=== PATIENT | female | born 1985 | race Caucasian/White ===

== ENCOUNTER → 2018-07-28 | Outpatient (CLI) | payer OTHER ==
[2018-07-28 14:07] LABS: HCT 40.8 % (34.0-46.0); HGB 13.7 gm/dL (11.4-16.0); MCH 31.5 pg (25.0-35.0); MCHC 33.5 g/dL (31.0-37.0); Mean Platelet Volume 6.7; Platelet Count 226 k/uL (150-450); RBC 4.34 m/uL (3.80-5.40); RDW 13.2 % (11.5-15.5); WBC 12.5 k/uL (3.8-10.6)
[2018-07-28 14:16] LABS: Glucose 85 mg/dL (74-99)
--- NOTE | 2018-07-28 16:14 | US ---
EXAMINATION TYPE: Transabdominal DATE OF EXAM: 07/28/2018 3:11 PM COMPARISON: NONE CLINICAL HISTORY: Z36 Confirm Dates. early ob, no symptoms EXAM PERFORMED: OBTA EXAM MEASUREMENTS: GESTATIONAL AGE / DATING Physician Established: (11 weeks/0 days) EDC: 02/16/2019 Dates by LMP: LMP unknown Dates by First Scan: (11 weeks/0 days) EDC: 02/16/2019 Dates by Current Scan for: (11 weeks/0 days) EDC: 02/16/2019 MATERNAL ANATOMY Uterus: 11.1 x 8.2 x 6.2cm Right Ovary: 2.3 x 1.4 x 1.2cm Left Ovary: 4.0 x 2.4 x 1.6cm Post CDS / Adnexa: wnl Presence of free fluid: no Presence of corpus luteal cyst: yes, left = 1.4 Presence of subchorionic bleed: no GESTATION / SURVEY CRL: 4.0cm (11 weeks/0 days) MSD: wnl Yolk Sac (normal less than 6mm): not seen Heart Rate: 149 bpm Rhythm: Normal IUP: Viable IUP Date of LMP: unknown IMPRESSION: Single intrauterine gestation estimated at 11 weeks 0 days gestation based on crown-rump length. Card iac activity measures 148 minutes.
== END | disposition home or self-care (01) ==
LOC: RADUSWWP 12:45 → MERGE 15:00
PROVIDERS: ATTEND Obstetrics & Gynecology
DX: Z36.89 Encounter for other specified antenatal screening (principal); Z34.81 Encounter for supervision of other normal pregnancy, first trimester
CPT/HCPCS: 36415; 76801; 82565; 82947; 85027; 86762; 86780; 86850; 86900; 86901; 87340

== ENCOUNTER 2018-10-15 11:50 | Emergency (ER) | payer OTHER ==
[2018-10-15] MEDS ORDERED: SODIUM CHLORIDE 0.9% 1,000 ML IV STA (12:05)
--- NOTE | 2018-10-15 12:42 | ED ---
Abdominal Pain HPI - General Chief Complaint: Abdominal Pain Stated Complaint: RT KIDNEY PAIN Time Seen by Provider: 10/15/18 12:05 Source: patient, RN notes reviewed Mode of arrival: ambulatory Limitations: no limitations - History of Present Illness Initial Comments: 33-year-old female presents emergency Department with chief complaint of right flank pain. Patient states that she has a history kidney stones and feels similar. Patient also states that she is 22 weeks denies any vaginal bleeding or vaginal discharge denies any lower abdominal pain and cramping. She states that she is A0 seen Dr. Mcdaniel. Patient states she still feels the baby move at this time. Patient states that she does not take any Tylenol for the pain she is not requesting pain meds at this time. She does admit to slight nausea no vomiting. - Related Data Home Medications Medication Instructions Recorded Confirmed Pnv No.95/Ferrous Fum/Folic AC 1 tab PO DAILY 10/15/18 10/15/18 [ Multivitamin Tablet] Previous Rx's Medication Instructions Recorded Cephalexin [Keflex] 500 mg PO Q8HR #21 cap 10/15/18 Allergies Allergy/AdvReac Type Severity Reaction Status Date / Time Penicillins Allergy Unknown Verified 10/15/18 12:08 Review of Systems ROS Statement: Those systems with pertinent positive or pertinent negative responses have been documented in the HPI. ROS Other: All systems not noted in ROS Statement are negative. Past Medical History Past Medical History: No Reported History History of Any Multi-Drug Resistant Organisms: None Reported Past Surgical History: Section, Cholecystectomy Past Psychological History: No Psychological Hx Reported Smoking Status: Current every day smoker Past Alcohol Use History: Occasional Past Drug Use History: None Reported General Exam Limitations: no limitations General appearance: alert, in no apparent distress Head exam: Present: atraumatic, normocephalic, normal inspection Eye exam: Present: normal appearance, PERRL, EOMI. Absent: scleral icterus, conjunctival injection, periorbital swelling ENT exam: Present: normal exam, normal oropharynx, mucous membranes moist Neck exam: Present: normal inspection. Absent: tenderness, meningismus, lympha denopathy Respiratory exam: Present: normal lung sounds bilaterally. Absent: respiratory distress, wheezes, rales, rhonchi, stridor Cardiovascular Exam: Present: normal rhythm, tachycardia, normal heart sounds. Absent: systolic murmur, diastolic murmur, rubs, gallop, clicks GI/Abdominal exam: Present: soft, normal bowel sounds. Absent: distended, tenderness, guarding, rebound, rigid Back exam: Present: CVA tenderness (R). Absent: CVA tenderness (L) Neurological exam: Present: alert, oriented X3, CN II-XII intact Skin exam: Present: warm, dry, intact, normal color. Absent: rash Course Vital Signs 10/15/18 10/15/18 11:58 13:12 Temperature 98.5 F 98.6 F Pulse Rate 117 H 95 Respiratory 16 18 Rate Blood Pressure 133/78 119/76 O2 Sat by Pulse 98 97 Oximetry Medical Decision Making - Medical Decision Making 33-year-old female presents emergency department for right flank pain. Patient is concerned about stone. Ultrasound was obtained shows no edematous changes no [place] nephrosis hydroureter. Patient urinalysis is nitrite positive with leukoesterase. Patient we treated with antibiotics for possible urinary tract infection. There is no complicating factors or concern for pyelonephritis at this time she is afebrile, not tachycardic. Patient will follow-up with her [employer] tomorrow return for any worsening symptoms. - Lab Data Result diagrams: 10/15/18 12:20 10/15/18 12:20 Lab Results 10/15/18 10/15/18 10/15/18 Range/Units 12:20 12:20 12:20 WBC 15.3 H (3.8-10.6) k/uL RBC 3.69 L (3.80-5.40) m/uL Hgb 12.2 (11.4-16.0) gm/dL Hct 34.2 (34.0-46.0) % MCV 92.6 (80.0-100.0) fL MCH 33.1 (25.0-35.0) pg MCHC 35.7 (31.0-37.0) g/dL RDW 13.7 (11.5-15.5) % Plt Count 230 (150-450) k/uL Neutrophils % 83 % Lymphocytes % 9 % Monocytes % 6 % Eosinophils % 1 % Basophils % 0 % Neutrophils # 12.7 H (1.3-7.7) k/uL Lymphocytes # 1.4 (1.0-4.8) k/uL Monocytes # 0.9 (0-1.0) k/uL Eosinophils # 0.1 (0-0.7) k/uL Basophils # 0.1 (0-0.2) k/uL Sodium 135 L (137-145) mmol/L Potassium 3.7 (3.5-5.1) mmol/L Chloride 105 (98-107) mmol/L Carbon Dioxide 22 (22-30) mmol/L Anion Gap 8 mmol/L BUN 6 L (7-17) mg/dL Creatinine 0.40 L (0.52-1.04) mg/dL Est GFR (CKD-EPI)AfAm >90 (>60 ml/min/1.73 sqM) Est GFR (CKD-EPI)NonAf >90 (>60 ml/min/1.73 sqM) Glucose 109 H (74-99) mg/dL Calcium 9.2 (8.4-10.2) mg/dL Total Bilirubin 0.4 (0.2-1.3) mg/dL AST 14 (14-36) U/L ALT 11 (9-52) U/L Alkaline Phosphatase 79 (38-126) U/L Total Protein 6.6 (6.3-8.2) g/dL Albumin 3.6 (3.5-5.0) g/dL Lipase 55 (23-300) U/L Urine Color Yellow Urine Appearance Cloudy H (Clear) Urine pH 6.5 (5.0-8.0) Ur Specific [place] 1.012 (1.001-1.035) Urine Protein Trace H (Negative) Urine Glucose (UA) Negative (Negative) Urine Ketones Negative (Negative) Urine Blood Negative (Negative) Urine Nitrite Positive H (Negative) Urine Bilirubin Negative (Negative) Urine Urobilinogen <2.0 (<2.0) mg/dL Ur Leukocyte Esterase Moderate H (Negative) Ur Squamous Epith Cells 2 (0-4) /hpf Urine Bacteria Many H (None) /hpf Urine Mucus Rare H (None) /hpf Disposition Clinical Impression: UTI (urinary tract infection), Kidney stones Disposition: HOME SELF-CARE Condition: Stable Instructions (If sedation given, give patient instructions): Urinary Tract Infection in (ED) Additional Instructions: Please return to the Emergency Department if symptoms worsen or any other concerns. Prescriptions: Cephalexin [Keflex] 500 mg PO Q8HR #21 cap Is patient prescribed a controlled substance at d/c from ED?: No Referrals: None,Stated [Primary Care Provider] - 1-2 days Time of Disposition: 13:35
[2018-10-15 13:00] LABS: ALT 11 U/L (9-52); AST 14 U/L (14-36); African American GFR (CKD) >90 (>60 ml/min/1.73 sqM); Albumin 3.6 g/dL (3.5-5.0); Alkaline Phosphatase 79 U/L (38-126); Anion Gap 8 mmol/L; Blood Urea Nitrogen 6 mg/dL (7-17); Calcium 9.2 mg/dL (8.4-10.2); Carbon Dioxide 22 mmol/L (22-30); Chloride 105 mmol/L (98-107); Glucose 109 mg/dL (74-99); Lipase 55 U/L (23-300); Potassium 3.7 mmol/L (3.5-5.1); Sodium 135 mmol/L (137-145); Total Bilirubin 0.4 mg/dL (0.2-1.3); Total Protein 6.6 g/dL (6.3-8.2)
[2018-10-15 13:12] LABS: Basophils # (A) 0.1 k/uL (0-0.2); Basophils % (A) 0 %; Eosinophils # (A) 0.1 k/uL (0-0.7); Eosinophils % (A) 1 %; HCT 34.2 % (34.0-46.0); HGB 12.2 gm/dL (11.4-16.0); Lymphocytes # (A) 1.4 k/uL (1.0-4.8); Lymphocytes % (A) 9 %; MCH 33.1 pg (25.0-35.0); MCHC 35.7 g/dL (31.0-37.0); MCV 92.6 fL (80.0-100.0); Mean Platelet Volume 7.6; Monocytes # (A) 0.9 k/uL (0-1.0); Monocytes % (A) 6 %; Neutrophils # (A) 12.7 k/uL (1.3-7.7); Neutrophils % (A) 83 %; Platelet Count 230 k/uL (150-450); RBC 3.69 m/uL (3.80-5.40); RDW 13.7 % (11.5-15.5); WBC 15.3 k/uL (3.8-10.6)
--- NOTE | 2018-10-15 13:24 | US ---
EXAMINATION TYPE: US kidneys/renal and bladder DATE OF EXAM: 10/15/2018 COMPARISON: NONE CLINICAL HISTORY: Right flank pain, history of stones. Right flank pain x 2 days, nausea, patient is 22 weeks . EXAM MEASUREMENTS: Right Kidney: 13 x 5.7 x 6 cm Left Kidney: 12.4 x 5 x 5 cm Right Kidney: large in size, multiple echogenic shadowing foci with largest measuring 0.7cm Left Kidney: large in size, 0.5cm echogenic focus inferior pole Bladder: wnl Bilateral Jets seen: no IMPRESSION: Bilateral nephrolithiasis with no evidence of overt hydronephrosis.
[2018-10-15 13:31] LABS: Appearance,Urine Cloudy (Clear); Bacteria,Urine Many /hpf; Bilirubin,Urine Negative (Negative); Blood,Urine Negative (Negative); Color,Urine Yellow; Glucose,Urine (UA) Negative (Negative); Ketones,Urine Negative (Negative); Leukocyte Esterase,Urine Moderate (Negative); Mucus,Urine Rare /hpf; Nitrite,Urine Positive (Negative); PH, Urine 6.5 (5.0-8.0); Protein,Urine Trace (Negative); Specific Gravity,Urine 1.012 (1.001-1.035); Squamous Epithelial Cell,Urine 2 /hpf (0-4); Urobilinogen,Urine <2.0 mg/dL (<2.0)
[2018-10-15] MEDS ORDERED: cefTRIAXone IN SWFI 1,000 MG/10 ML SYRINGE IVP STA ×2 (13:32→13:33)
[2018-10-15 13:55] VITALS: BP 112/76; PULSE 86; RESP 16; TEMP 98.7
== END 2018-10-15 14:02 | disposition home or self-care (01) ==
LOC: EC 11:50
DX: O23.42 Unspecified infection of urinary tract in pregnancy, second trimester (principal); O26.832 Pregnancy related renal disease, second trimester; N20.0 Calculus of kidney; O99.89 Other specified diseases and conditions complicating pregnancy, childbirth and the puerperium; R00.0 Tachycardia, unspecified; O99.332 Smoking (tobacco) complicating pregnancy, second trimester; F17.200 Nicotine dependence, unspecified, uncomplicated; Z88.0 Allergy status to penicillin; Z90.49 Acquired absence of other specified parts of digestive tract; Z98.890 Other specified postprocedural states; Z3A.22 22 weeks gestation of pregnancy
CPT/HCPCS: 36415; 80053; 83690; 85025; 81001; 87086; 76770; 99284; 96374; 96361; J0696

== ENCOUNTER → 2018-11-02 | Outpatient (CLI) | payer OTHER ==
[2018-11-02 14:32] LABS: HCT 36.4 % (34.0-46.0); HGB 12.1 gm/dL (11.4-16.0); MCH 31.7 pg (25.0-35.0); MCHC 33.2 g/dL (31.0-37.0); MCV 95.3 fL (80.0-100.0); Mean Platelet Volume 6.9; Platelet Count 256 k/uL (150-450); RBC 3.82 m/uL (3.80-5.40); RDW 13.1 % (11.5-15.5); WBC 13.2 k/uL (3.8-10.6)
== END | disposition home or self-care (01) ==
LOC: LABWHC1 13:18
PROVIDERS: ATTEND Obstetrics & Gynecology
DX: Z34.82 Encounter for supervision of other normal pregnancy, second trimester (principal)
CPT/HCPCS: 36415; 82950; 85027

== ENCOUNTER 2019-01-05 11:00 | Outpatient (CLI) | payer OTHER ==
[2019-01-05 11:51] VITALS: BP 127/83; PULSE 94; RESP 18; TEMP 98.2
[2019-01-05 12:16] LABS: Appearance,Urine Cloudy (Clear); Bacteria,Urine Many /hpf; Bilirubin,Urine Negative (Negative); Blood,Urine Small (Negative); Color,Urine Yellow; Glucose,Urine (UA) Negative (Negative); Ketones,Urine Negative (Negative); Leukocyte Esterase,Urine Large (Negative); Mucus,Urine Few /hpf; Nitrite,Urine Negative (Negative); PH, Urine 6.5 (5.0-8.0); Protein,Urine Trace (Negative); RBC,Urine 16 /hpf (0-5); Sperm,Urine Rare /hpf; Squamous Epithelial Cell,Urine 7 /hpf (0-4); Urobilinogen,Urine <2.0 mg/dL (<2.0); WBC,Urine 122 /hpf (0-5)
--- NOTE | 2019-02-10 00:02 | P.MSEPDOC ---
Presenting Problems - Arrival Data Date of Arrival on Unit: 01/05/19 Time of Arrival on Unit: 11:00 Mode of Transport: Ambulatory - Complaint OB-Reason for Admission/Chief Complaint: Other Comment: right flank pain. hx of uti and kidney stones Medical History - Information : 2 Para: 1 Term: 1 : 0 Abortions: Spontaneous or Elective: 0 Number of Living Children: 1 - Gestational Age Gestational Age by ISAEL (wks/days): 34 Weeks and 0 Days - History Complications: Prior , Smoker Review of Systems - Review of Systems Constitutional: No problems Breast: No problems ENT: No problems Cardiovascular: No problems Respiratory: No problems Gastrointestinal: No problems Genitourinary: No problems Musculoskeletal: No problems Neurological: No problems Skin: No problems Comment: right flank pain and hx of uti and kidney stones. on antibiotics since 01/05 at 1700 for uti. Vital Signs - Temperature Temperature: 98.2 F Temperature Source: Oral - Pulse Right Brachial Pulse Rate: 94 Pulse Assessment Method: Automatic Cuff - Respirations Respiratory Rate: 18 Oxygen Delivery Method: Room Air O2 Sat by Pulse Oximetry: 97 - Blood Pressure Right Arm Blood Pressure: 127/83 Blood Pressure Mean: 97 Blood Pressure Source: Automatic Cuff Medical Screen Scoring (Pre) - Cervical Exam Dilation: Exam Deferred Effacement: Exam Deferred Membranes: Intact - Uterine Contractions Frequency: N/A Duration: N/A Intensity: N/A - Maternal Vital Signs Maternal Temperature: N/A Maternal Blood Pressure: N/A Signs of Preeclampsia: N/A Maternal Respirations: N/A - Maternal Trauma Maternal Trauma: N/A - Assessment - Baby A Baseline FHR: 145 Heart Rate - NICHD Category: Category I (Normal) = 0 NST: Reactive Position: N/A Station: N/A - Total Score - Baby A Total Score - Baby A: 0 - Total Score - Baby B Total Score - Baby B: 0 - Total Score - Baby C Total Score - Baby C: 0 - Level of Risk - Baby A Level of Risk - Baby A: Low (0-5) - Level of Risk - Baby B Level of Risk - Baby B: Low (0-5) - Level of Risk - Baby C Level of Risk - Baby C: Low (0-5) Physician Notification (Pre) - Physician Notified Spoke With: reed Jesus Order Received: Yes - Notification Comment Comment: discharge home. to lkvincent van appt on 01-12 at office. Medical Screen Scoring (Post) - Cervical Exam Dilation: Exam Deferred Effacement: Exam Deferred - Uterine Contractions Frequency: N/A Duration: N/A Intensity: N/A - Maternal Vital Signs Maternal Temperature: N/A Maternal Blood Pressure: N/A Signs of Preeclampsia: N/A Maternal Respirations: N/A - Pain Assessment Pain Scale Used: Numeric (1 - 10) Pain Intensity: 5 Pain Description: *Acute Pain Frequency: Intermittent Pain Duration: 3.5 Pain Duration Units: Hours Pain Behavior: None Exhibited, Vocalization Pain Aggravating Factors: Activity - Maternal Trauma Maternal Trauma: N/A - Assessment - Baby A Heart Rate: 135 Heart Rate - NICHD Category: Category I (Normal) = 0 NST: Reactive Position: N/A Station: N/A - Total Score Total Score - Baby A: 0 Total Score - Baby B: 0 Total Score - Baby C: 0 - Post Treatment Level of Risk Post Treatment Level of Risk - Baby A: Low (0-5) Post Treatment Level of Risk - Baby B: Low (0-5) Post Treatment Level of Risk - Baby C: Low (0-5) Physician Notification (Post) - Physician Notified Physician Notified Date: 01/05/19 Physician Notified Time: 12:30 Spoke With: reed Jesus Order Received: Yes - Notification Comment Comment: disch home. to keep sched appt on 01-12 at office. to call if worsening symptoms. Disposition - Disposition OB Disposition: Discharge to home Discharge Date: 01/05/19 Discharge Time: 12:37 I agree with the RN Medical Screening Exam: Yes Risk & Benefit of care provided described in d/c instruction: Yes Diagnosis: URINARY TRACT INFECTION, SITE NOT SPECIFIED
== END 2019-01-05 12:42 | disposition home or self-care (01) ==
LOC: FBPOP 11:00
PROVIDERS: ATTEND Obstetrics & Gynecology
DX: O23.43 Unspecified infection of urinary tract in pregnancy, third trimester (principal); Z3A.34 34 weeks gestation of pregnancy
CPT/HCPCS: 59025; 81001; G0463; 99213

== ENCOUNTER 2019-02-01 08:16 | Outpatient (CLI) | payer OTHER ==
[2019-02-01] MEDS ORDERED: LACTATED RINGERS 1,000 ML IV SCH (09:15)
[2019-02-01 09:24] VITALS: BP 123/72; PULSE 107; RESP 20; TEMP 97.5
[2019-02-01 09:49] LABS: Appearance,Urine Cloudy (Clear); Bacteria,Urine Many /hpf; Bilirubin,Urine Negative (Negative); Blood,Urine Trace (Negative); Color,Urine Yellow; Glucose,Urine (UA) Negative (Negative); Ketones,Urine Negative (Negative); Leukocyte Esterase,Urine Large (Negative); Nitrite,Urine Positive (Negative); PH, Urine 6.5 (5.0-8.0); Protein,Urine 1+ (Negative); Specific Gravity,Urine 1.014 (1.001-1.035); Squamous Epithelial Cell,Urine 8 /hpf (0-4); Urobilinogen,Urine <2.0 mg/dL (<2.0); WBC,Urine 80 /hpf (0-5)
== END 2019-02-01 11:55 | disposition home or self-care (01) ==
LOC: FBPOP 08:16
PROVIDERS: ATTEND Obstetrics & Gynecology
DX: O21.9 Vomiting of pregnancy, unspecified (principal)
CPT/HCPCS: 59025; 96360; 96361; 81001; 87086; 87077; 87186; G0463; 99214

== ENCOUNTER 2019-02-02 18:56 | Inpatient (IN) | payer OTHER ==
[2019-02-02] MEDS ORDERED: LACTATED RINGERS 500 ML IV ONE (19:30)
[2019-02-02] MEDS ORDERED: ONDANSETRON 4 MG/2 ML VIAL IVP PRN (20:14)
--- NOTE | 2019-02-02 20:31 | P.HPOB ---
History of Present Illness H&P Date: 02/02/19 Chief Complaint: Nausea vomiting for 24 hours and decreased movement This patient is a 33-year-old 2 para 1 female estimated date of confinement 02/16/2019 estimated gestational age 38-0/7 weeks gestation who presented this evening with complaints of nausea vomiting for over 24 hours and also decreased movement. Patient was here yesterday morning apparently with back pain and similar complaints and urinalysis showed leukocyte esterase with white blood cells and bacteria. Patient that time was given IV fluids and urine culture was sent. Urine culture returns now having gram-negative bacilli (most likely E. coli or Klebsiella). Patient denies back pain this evening or fever but does state that she's been able to keep any fluids down. Patient is now being admitted for IV hydration and IV antibiotics. 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 History of Any Multi-Drug Resistant Organisms: None Reported Past Surgical History: Section, Cholecystectomy Past Anesthesia/Blood Transfusion Reactions: No Reported Reaction Past Psychological History: No Psychological Hx Reported Smoking Status: Current every day smoker Past Alcohol Use History: None Reported Past Drug Use History: None Reported Medications and Allergies Home Medications Medication Instructions Recorded Confirmed Type Pnv No.95/Ferrous Fum/Folic AC 1 tab PO DAILY 10/15/18 02/02/19 History [ Multivitamin Tablet] Allergies Allergy/AdvReac Type Severity Reaction Status Date / Time Penicillins Allergy Rash/Hives Verified 02/02/19 19:06 Exam Intake and Output 02/02/19 02/02/19 02/02/19 06:59 14:59 22:59 Other: Weight 102.376 kg - OBG Physical Exam Abdomen: bowel sounds normal Uterus: enlarged Results Please see urinalysis from yesterday. Preliminary culture shows gram-negative bacilli. blood work shows she is oh positive, rubella immune, RPR is nonreactive, hepatitis B is negative, patient has been referred to maternal- medicine. Assessment and Plan Assessment: This is a 33-year-old 2 para 1 female 38 weeks gestation who is admitted for persistent nausea vomiting and inability to keep things down and urine culture suggestive of E. coli or Klebsiella. Plan is to admit this patient for IV hydration and IV antibiotics. I'm going to give her IV Ancef pending final culture and sensitivity results. Anti-medics as necessary. I discussed treatment plan with the patient and her partner and all questions answered. (1) 38 weeks gestation of Current Visit: Yes Status: Acute Code(s): Z3A.38 - 38 WEEKS GESTATION OF SNOMED Code(s): 64733748 (2) Urinary tract infection affecting Current Visit: Yes Status: Acute Code(s): O23.40 - UNSP INFECTION OF URINARY TRACT IN , UNSP TRIMESTER SNOMED Code(s): 860876926
[2019-02-02 20:41] LABS: ALT 15 U/L (9-52); AST 26 U/L (14-36); African American GFR (CKD) >90 (>60 ml/min/1.73 sqM); Albumin 3.5 g/dL (3.5-5.0); Alkaline Phosphatase 121 U/L (38-126); Anion Gap 14 mmol/L; Blood Urea Nitrogen 6 mg/dL (7-17); Calcium 9.4 mg/dL (8.4-10.2); Carbon Dioxide 15 mmol/L (22-30); Chloride 105 mmol/L (98-107); Glucose 63 mg/dL (74-99); Sodium 134 mmol/L (137-145); Total Bilirubin 0.8 mg/dL (0.2-1.3)
[2019-02-02 20:47] VITALS: BMI 37.5
[2019-02-02 20:54] LABS: Potassium 4.1 mmol/L (3.5-5.1)
[2019-02-02 22:52] LABS: Basophils # (A) 0.1 k/uL (0-0.2); Basophils % (A) 0 %; Eosinophils % (A) 0 %; HCT 34.9 % (34.0-46.0); HGB 11.9 gm/dL (11.4-16.0); Lymphocytes # (A) 1.3 k/uL (1.0-4.8); Lymphocytes % (A) 6 %; MCH 32.1 pg (25.0-35.0); MCV 94.4 fL (80.0-100.0); Mean Platelet Volume 6.6; Monocytes # (A) 0.9 k/uL (0-1.0); Monocytes % (A) 4 %; Neutrophils # (A) 19.6 k/uL (1.3-7.7); Neutrophils % (A) 88 %; Platelet Count 232 k/uL (150-450); RDW 13.5 % (11.5-15.5); WBC 22.3 k/uL (3.8-10.6)
[2019-02-03] MEDS ORDERED: BUTORPHANOL 1 MG/ML 1 ML VIAL IV PRN (04:13)
[2019-02-03] MEDS: LACTATED RINGERS 1,000 ML IV SCH ×5 (04:55→22:50)
[2019-02-03] MEDS ORDERED: CITRIC ACID-SODIUM CITRATE 15 ML CUP PO ONE (04:56)
--- NOTE | 2019-02-03 05:13 | P.PN ---
Progress Note - Text Progress Note Date: 02/03/19 Patient has spontaneous rupture membranes at approximately 3 AM this morning. She's had onset of labor approximately 15 minutes later. Patient is now very uncomfortable. heart tones are reactive. Plan is to proceed with repeat section and she also has discuss a tubal ligation with Dr. Mcdaniel in the office we'll do this as well. She understands this is permanent. All the patient's questions been answered and consent obtained.
[2019-02-03] MEDS ORDERED: OXYTOCIN 10 UNIT/ML 1 ML VIAL ONE (05:24)
[2019-02-03] MEDS ORDERED: NALBUPHINE 10 MG/ML (1 ML AMP) ONE (05:24)
[2019-02-03] MEDS ORDERED: KETOROLAC 30 MG/ML 1 ML VIAL ONE (05:24)
[2019-02-03] MEDS ORDERED: ONDANSETRON 4 MG/2 ML VIAL ONE (05:24)
[2019-02-03] MEDS ORDERED: MORPHINE SULFATE (PF) 0.3 MG/0.3 ML SYR ONE (05:24)
[2019-02-03] MEDS ORDERED: MORPHINE SULFATE 2 MG/ML SYRINGE IVP PRN (05:49)
[2019-02-03] MEDS ORDERED: NALOXONE 0.4 MG/ML 1 ML VIAL IV PRN (05:49)
[2019-02-03] MEDS ORDERED: NALBUPHINE 10 MG/ML (1 ML AMP) IV PRN (05:49)
[2019-02-03] MEDS ORDERED: diphenhydrAMINE 50 MG/ML 1 ML VIAL IVP PRN ×2 (05:49→06:11)
[2019-02-03] MEDS ORDERED: ACETAMINOPHEN TAB 325 MG TAB PO PRN (06:11)
[2019-02-03] MEDS ORDERED: LANOLIN CREAM 5 GM TUBE TOPICAL PRN (06:11)
[2019-02-03] MEDS ORDERED: METOCLOPRAMIDE 5 MG/ML 2 ML VIAL IVP PRN (06:11)
[2019-02-03] MEDS ORDERED: HYDROcodone/APAP 5-325MG 1 EACH TAB PO PRN (06:11)
[2019-02-03] MEDS ORDERED: SIMETHICONE 80 MG CHEWABLE PO PRN (06:11)
[2019-02-03] MEDS ORDERED: diphenhydrAMINE 25 MG CAP PO PRN (06:11)
[2019-02-03] MEDS ORDERED: OXYTOCIN 20 UNITS/1000 ML NS 1,000 ML IV SCH (06:15)
--- NOTE | 2019-02-03 06:23 | P.OP ---
Date of Procedure: 02/03/19 Preoperative Diagnosis: #1: 38 and one sevenths week intrauterine . #2: Urinary tract infection. #3: Previous section desires repeat. #4: Multi parity desires permanent sterilization. #5: Spontaneous rupture membranes in labor Postoperative Diagnosis: Same Procedure(s) Performed: Repeat low transverse section and bilateral partial salpingectomy Anesthesia: spinal Surgeon: Nba Helm Channel Man #1: Yamileth Ricks Estimated Blood Loss (ml): 600 Pathology: other (Bilateral fallopian tube segments) Condition: stable Disposition: floor Indications for Procedure: Please see dictated H&P for intimate details of this patient's admission. Brief summary this is a 33-year-old 2 para 1 female 38 weeks gestation is admitted initially last evening for a urinary tract infection and persistent nausea vomiting. Patient is medically given IV antibiotics, at approximately 3 AM this morning her water broke spontaneously and she went into labor. Patient had previous section and had planned repeat section and also requested permanent sterilization. Patient understands a tubal ligation is permanent however does have a failure rate of less than 5 per thousand procedures done. She understands this surgery itself has risks including risks of infection, bleeding, possible injury bowel, bladder, vessels, and/or other organs. All the patient's questions are answered written consent is obtained. Operative Findings: This is a vigorous viable male infant Apgars 9 and 9 delivery time is 0539 hours. Description of Procedure: This patient has a Oden catheter placed to straight drain. She is subsequently taken to the operating room where she sat up and spinal anesthetic is administered without incident. With an adequate level of anesthesia she has abdominal prep and drape. Scalpels and taken in the previous Pfannenstiel incision is incised. A second scalpel is taken down to the fascia the fascia scored with a a scalpel. Fascia is extended bilaterally using the Steele scissors. Fascia is dissected off the rectus muscles. Rectus muscles are the peritoneum identified and entered sharply. Peritoneal incision extended superior and inferior without difficulty. Bladder blade is then placed. Bladder peritoneum taken sharply off the lower uterine segment. Scalpels then taken and a lower transverse uterine incision is made. I then using a hemostat tender the uterine cavity bluntly and there is loss of clear fluid. This incision is extended bluntly and the 's head is gently delivered through the incision with fundal pressure. Mouth and nares are bulb suctioned. There is a nuchal cord which was loose and reduced. We then deliver the rest this 's body. Is a vigorous viable male infant Apgars 9 and 9 delivery time was 0539 hours. After delivery of the the umbilical cord is doubly clamped and cut appears to be trivascular. The is handed off to the nurses in attendance. The placenta is then manually extracted intact. Uterus is then externalized and uterine incision demarcated with Diamond clamps. Uterine incision closed in 2 layers locking fashion good hemostasis is noted. Then turned my attention of left fallopian tube approximately 4 cm from the cornual insertion a small window made to the mesial salpinx with Bovie cautery. Using a 2-0 silk I doubly ligate a 1-2 cm segment of fallopian tube which is excised and handed off to pathology. Cauterization is done of the tubal ends. Excellent hemostasis is noted similar technique is done on the right side with similar results. With this done excess fluid is removed from abdomen and pelvis. Uterus placed back into the abdomen. Parietal peritoneum was then closed in 0 Vicryl running fashion. Rectus muscles reapproximated Vicryl interrupted fashion. The fascia is then closed using 0 PDS. Fascial incision is intact and hemostatic. Subcutaneous tissues and closed using a 3-0 Vicryl running fashion. Skin is and closed using frances. All counts are correct 3. There are no complications. Infant and mother are stable delivery room.
--- NOTE | 2019-02-03 11:55 | P.PN ---
Progress Note - Text Progress Note Date: 02/03/19 Patient was seen at bedside at 6:30 AM. She is postop day 1 from done under spinal with Duramorph. VAS score is 0. She denies side effects in the form of itching, nausea, vomiting. Lower extremity sensation and motor function is intact. She has not yet ambulated. No tenderness to palpation over lumbar spine.
[2019-02-03] MEDS: SENNOSIDES-DOCUSATE SODIUM 1 EACH TAB PO SCH ×2 (11:58→19:32)
[2019-02-03] MEDS: KETOROLAC 30 MG/ML 1 ML VIAL IVP PRN ×2 (13:11→19:32)
[2019-02-03] MEDS: SODIUM CHLORIDE 0.9% 1,000 ML IV SCH (23:30)
[2019-02-03] MEDS ORDERED: SODIUM CHLORIDE 0.9% 500 ML 500 ML IV ONE (23:48)
[2019-02-04] MEDS: SODIUM CHLORIDE 0.9% 1,000 ML IV SCH (01:35)
[2019-02-04] MEDS ORDERED: SODIUM CHLORIDE 0.9% 500 ML 500 ML IV ONE (01:45)
[2019-02-04] MEDS ORDERED: SODIUM CHLORIDE 0.9% 500 ML 1,000 ML IV ONE (01:49)
[2019-02-04] MEDS: KETOROLAC 30 MG/ML 1 ML VIAL IVP PRN (01:58)
[2019-02-04 07:37] LABS: Basophils % (A) 0 %; Eosinophils # (A) 0.1 k/uL (0-0.7); Eosinophils % (A) 1 %; HCT 31.2 % (34.0-46.0); HGB 11.1 gm/dL (11.4-16.0); Lymphocytes # (A) 1.6 k/uL (1.0-4.8); Lymphocytes % (A) 14 %; MCH 32.5 pg (25.0-35.0); MCHC 35.6 g/dL (31.0-37.0); MCV 91.3 fL (80.0-100.0); Mean Platelet Volume 7.3; Monocytes # (A) 0.7 k/uL (0-1.0); Monocytes % (A) 6 %; Neutrophils # (A) 8.8 k/uL (1.3-7.7); Neutrophils % (A) 76 %; Platelet Count 203 k/uL (150-450); RBC 3.42 m/uL (3.80-5.40); RDW 13.5 % (11.5-15.5); WBC 11.5 k/uL (3.8-10.6)
[2019-02-04 07:38] LABS: African American GFR (CKD) >90 (>60 ml/min/1.73 sqM); Anion Gap 7 mmol/L; Blood Urea Nitrogen 8 mg/dL (7-17); Calcium 8.9 mg/dL (8.4-10.2); Carbon Dioxide 16 mmol/L (22-30); Chloride 112 mmol/L (98-107); Glucose 74 mg/dL (74-99); Potassium 4.5 mmol/L (3.5-5.1); Sodium 135 mmol/L (137-145)
[2019-02-04] MEDS: LACTATED RINGERS 1,000 ML IV SCH (08:47)
[2019-02-04] MEDS: SENNOSIDES-DOCUSATE SODIUM 1 EACH TAB PO SCH (08:49)
--- NOTE | 2019-02-04 09:37 | P.PNOBGPC ---
Subjective - Subjective Principal diagnosis: Status post repeat low transverse with tubal ligation postop day Interval history: Patient seen and examined. Her catheter was just removed as it was replaced with slight by Dr. Ayala due to inability urinate. She is passing flatus and tolerating regular diet. For her urine culture came back with E. coli sensitive to cephalosporins which she is currently getting and IV form. Patient reports: Reports appetite normal, Reports voiding normally, Reports pain well controlled, Reports ambulating normally : doing well Objective - Vital Signs Latest vital signs: Vital Signs Temp Pulse Resp BP Pulse Ox 02/04/19 08:00 98.2 F 67 19 107/75 02/04/19 04:00 97.7 F 63 16 107/61 97 02/04/19 00:00 97.9 F 69 18 110/67 100 02/03/19 19:44 97.6 F 68 18 112/64 98 02/03/19 16:00 96.9 F L 67 16 119/69 100 02/03/19 11:49 98.3 F 76 16 115/76 98 02/03/19 11:00 16 Intake and Output 02/03/19 02/04/19 02/04/19 22:59 06:59 14:59 Intake Total 2500 250 Output Total 150 525 475 Balance -150 1974 - Intake: Intake, IV Titration 2500 150 Amount Lactated Ringers 1,000 ml 1000 @ 125 mls/hr IV .Q8H [facility] Rx#:[id number] Lactated Ringers 1,000 ml 400 @ 150 mls/hr IV .Q6H40M [facility] Rx#:[id number] Sodium Chloride 0.9% 1, 500 000 ml @ 500 mls/hr IV . Q2H [facility] Rx#:[id number] Sodium Chloride 0.9% 500 500 150 ml 500 ml @ 999 mls/hr IV .Q31M [facility] Rx#:[id number] ceFAZolin 2 gm In Sodium 50 Chloride 0.9% 50 ml @ 100 mls/hr IVPB Q8H [facility] Rx#: [id number] ceFAZolin 2,000 mg In 50 Sodium Chloride 0.9% 50 ml @ 100 mls/hr IVPB Q8HR [facility] Rx#:[id number] Oral 100 Output: Urine 150 525 475 Uretheral (Oden) 150 150 Other: Voiding Method Self-Catheterization Indwelling Catheter # Voids 0 - Exam Lungs: bilateral: normal Chest: Normal S1, Normal S2 Extremities: Present: normal Abdomen: Present: normal appearance, soft. Absent: distention, tenderness Incision: Present: normal, dry, intact Uterus: Present: normal, firm - Labs Labs: Abnormal Lab Results - Last 24 Hours (Table) 02/04/19 02/04/19 Range/Units 06:42 06:42 WBC 11.5 H (3.8-10.6) k/uL RBC 3.42 L (3.80-5.40) m/uL Hgb 11.1 L (11.4-16.0) gm/dL Hct 31.2 L (34.0-46.0) % Neutrophils # 8.8 H (1.3-7.7) k/uL Sodium 135 L (137-145) mmol/L Chloride 112 H (98-107) mmol/L Carbon Dioxide 16 L (22-30) mmol/L Assessment and Plan (1) Status post repeat low transverse section Current Visit: Yes Status: Acute Code(s): Z98.891 - HISTORY OF UTERINE SCAR FROM PREVIOUS SURGERY SNOMED Code(s): 939855999 (2) Urinary tract infection, E. coli Current Visit: Yes Status: Acute Code(s): N39.0 - URINARY TRACT INFECTION, SITE NOT SPECIFIED; B96.20 - UNSP ESCHERICHIA COLI THE CAUSE OF DISEASES [facility] SNOMED Code(s): 651874322 (3) Status post tubal ligation at time of delivery, current hosp Current Visit: Yes Status: Acute Code(s): O80 - ENCOUNTER FOR FULL-TERM UNCOMPLICATED DELIVERY; Z30.2 - ENCOUNTER FOR STERILIZATION SNOMED Code(s): 006100795 Plan: 1. DC IV fluids 2. Continue IV Ancef 3. Increase ambulation 4. Monitor voiding
[2019-02-04] MEDS: IBUPROFEN 600 MG TAB PO PRN ×3 (10:09→23:53)
[2019-02-05] MEDS: LACTATED RINGERS 1,000 ML IV SCH ×2 (04:12→04:19)
[2019-02-05] MEDS: SENNOSIDES-DOCUSATE SODIUM 1 EACH TAB PO SCH ×2 (04:19→08:23)
--- NOTE | 2019-02-05 06:37 | P.DS ---
Providers Date of admission: 02/03/19 06:10 Expected date of discharge: 02/05/19 Attending physician: Juana Mcdaniel Primary care physician: Stated None - Discharge Diagnosis(es) (1) Status post repeat low transverse section Current Visit: Yes Status: Acute (2) Urinary tract infection, E. coli Current Visit: Yes Status: Acute (3) Status post tubal ligation at time of delivery, current hosp Current Visit: Yes Status: Acute Hospital Course: Patient presented in active labor. She underwent a repeat low transverse C- section with tubal ligation. Her postoperative course was uncomplicated. She was admitted with the UTI and has been being treated with cephalosporins IV. The urine culture came back with E. coli which was sensitive to this. She'll be discharged home postoperative day #2 in stable condition with a prescription for Motrin, hydrocodone, and Keflex. She is to follow-up with me in one week. Denies nausea, vomiting, chest pain, shortness of breath or calf pain. Her incision is clean, dry, intact with frances. Tolerating regular diet and passing flatus, ambulating voiding without difficulty. Plan - Discharge Summary New Discharge Prescriptions: New Cephalexin [Keflex] 500 mg PO Q6HR #28 cap Ibuprofen [Motrin] 600 mg PO Q6HR PRN #30 tab PRN Reason: Mild Pain Or Fever >= 100.5 HYDROcodone/APAP 5-325MG [Alkol 5-325] 1 each PO Q4HR PRN #10 tab PRN Reason: Moderate Pain No Action Pnv No.95/Ferrous Fum/Folic AC [ Multivitamin Tablet] 1 tab PO DAILY Discharge Medication List Pnv No.95/Ferrous Fum/Folic AC [ Multivitamin Tablet] 1 tab PO DAILY 10/15/18 [History] Cephalexin [Keflex] 500 mg PO Q6HR #28 cap 02/05/19 [Rx] HYDROcodone/APAP 5-325MG [Alkol 5-325] 1 each PO Q4HR PRN #10 tab 02/05/19 [Rx] Ibuprofen [Motrin] 600 mg PO Q6HR PRN #30 tab 02/05/19 [Rx] Follow up Appointment(s)/Referral(s): Juana Mcdaniel DO [Doctor of Osteopathic Medicine] - 1 Week Discharge Disposition: HOME SELF-CARE
[2019-02-05] MEDS: IBUPROFEN 600 MG TAB PO PRN (08:21)
[2019-02-05 12:33] VITALS: BP 148/86; PULSE 82; RESP 18; TEMP 97.7
== END 2019-02-05 13:32 | disposition home or self-care (01) | DRG 784 ==
LOC: FBPOP 18:56 → 4FBP 20:10 → OBSVTOIN 02-03 06:10
PROVIDERS: ADMIT Obstetrics & Gynecology; ATTEND Obstetrics & Gynecology
PROC: 0UB70ZZ Excision of Bilateral Fallopian Tubes, Open Approach (ICD-10-PCS; principal; 2019-02-03 05:30)
PROC: 10D00Z1 Extraction of Products of Conception, Low, Open Approach (ICD-10-PCS; principal; 2019-02-03 05:30)
DX: O34.211 Maternal care for low transverse scar from previous cesarean delivery (principal); O23.43 Unspecified infection of urinary tract in pregnancy, third trimester; O36.8130 Decreased fetal movements, third trimester, not applicable or unspecified; O99.334 Smoking (tobacco) complicating childbirth; F17.200 Nicotine dependence, unspecified, uncomplicated; Z37.0 Single live birth; Z3A.38 38 weeks gestation of pregnancy; B96.20 Unspecified Escherichia coli [E. coli] as the cause of diseases classified elsewhere; Z30.2 Encounter for sterilization; O69.81X0 Labor and delivery complicated by cord around neck, without compression, not applicable or unspecified
CPT/HCPCS: 59025; 80048; 80053; 85025; 88302; 96360; 99213

== ENCOUNTER 2019-11-02 02:58 | Emergency (ER) | payer OTHER ==
[2019-11-02] MEDS ORDERED: KETOROLAC 30 MG/ML 1 ML VIAL IVP STA (03:11)
[2019-11-02] MEDS ORDERED: MORPHINE SULFATE 4 MG/ML SYRINGE IV STA (03:11)
[2019-11-02] MEDS ORDERED: SODIUM CHLORIDE 0.9% 1,000 ML IV STA ×2 (03:11→04:45)
--- NOTE | 2019-11-02 03:13 | ED ---
Female Urogenital HPI - General Chief complaint: Urogenital Stated complaint: RT kidney pain Time Seen by Provider: 11/02/19 03:01 Source: patient, RN notes reviewed, old records reviewed Mode of arrival: ambulatory Limitations: no limitations - History of Present Illness Initial comments: This is a 34-year-old female for she feels like is kidney pain kidney stone. History of kidney stones history of some kidney disease patient states she found this information out. She was reviewed in the past year. Symptoms woke her up from sleep tonight she admits to some mild dysuria but denying any fevers. No other complaints MD Complaint: dysuria, pelvic pain, other (R flank pain) -: hour(s) Location: RLQ Radiation: R flank Severity: severe Severity scale (1-10): 10 Quality: sharp Consistency: constant Improves with: none Worsens with: none Patient : No Associated Symptoms: nausea/vomiting, loss of appetite - Related Data Home Medications Medication Instructions Recorded Confirmed Pnv No.95/Ferrous Fum/Folic AC 1 tab PO DAILY 10/15/18 02/02/19 [ Multivitamin Tablet] Previous Rx's Medication Instructions Recorded Cephalexin [Keflex] 500 mg PO Q6HR #28 cap 02/05/19 HYDROcodone/APAP 5-325MG [[place] 1 each PO Q4HR PRN #10 tab 02/05/19 5-325] Ibuprofen [Motrin] 600 mg PO Q6HR PRN #30 tab 02/05/19 Cephalexin [Keflex] 500 mg PO Q6HR #56 cap 11/02/19 Allergies Allergy/AdvReac Type Severity Reaction Status Date / Time Penicillins Allergy Rash/Hives Verified 11/02/19 03:07 Review of Systems ROS Statement: Those systems with pertinent positive or pertinent negative responses have been documented in the HPI. ROS Other: All systems not noted in ROS Statement are negative. 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 History of Any Multi-Drug Resistant Organisms: None Reported Past Surgical History: Section, Cholecystectomy Past Anesthesia/Blood Transfusion Reactions: No Reported Reaction Past Psychological History: No Psychological Hx Reported Smoking Status: Current every day smoker Past Alcohol Use History: None Reported Past Drug Use History: None Reported - Past Family History Father Family Medical History: No Reported History General Exam Limitations: no limitations General appearance: anxious Head exam: Present: atraumatic, normocephalic, normal inspection Eye exam: Present: normal appearance, PERRL, EOMI. Absent: scleral icterus, conjunctival injection, periorbital swelling ENT exam: Present: normal exam, mucous membranes moist Neck exam: Present: normal inspection. Absent: tenderness, meningismus, lymphadenopathy Respiratory exam: Present: normal lung sounds bilaterally. Absent: respiratory distress, wheezes, rales, rhonchi, stridor Cardiovascular Exam: Present: regular rate, normal rhythm, normal heart sounds. Absent: systolic murmur, diastolic murmur, rubs, gallop, clicks GI/Abdominal exam: Present: soft, normal bowel sounds. Absent: distended, tenderness, guarding, rebound, rigid Extremities exam: Present: normal inspection, full ROM, normal capillary refill. Absent: tenderness, pedal edema, joint swelling, calf tenderness Back exam: Present: normal inspection Neurological exam: Present: alert, oriented X3, CN II-XII intact Psychiatric exam: Present: normal affect, normal mood Skin exam: Present: warm, dry, intact, normal color. Absent: rash Course Vital Signs 11/02/19 11/02/19 03:03 05:35 Temperature 97.9 F 97.6 F Pulse Rate 90 62 Respiratory 18 17 Rate Blood Pressure 155/93 129/77 O2 Sat by Pulse 100 100 Oximetry - Reevaluation(s) Reevaluation #1: Medical records reviewed Patient's pain is controlled now resolved patient informed of results including CT findings and urine Patient feels better for discharge home - Consultations Consultation #1: spoke with urology on-call okay to see patient in follow-up Medical Decision Making - Medical Decision Making 34 female DF for evaluation patient believes she has kidney stone, may have had recently passed kidney stone versus prominent arthritis patient placed on IV antibiotics here in the ER pain control and discharged home on antibiotics to follow up with urology - Lab Data Result diagrams: 11/02/19 04:02 11/02/19 04:02 Lab Results 11/02/19 11/02/19 11/02/19 Range/Units 03:18 03:42 04:02 WBC 12.6 H (3.8-10.6) k/uL RBC 5.05 (3.80-5.40) m/uL Hgb 16.0 (11.4-16.0) gm/dL Hct 47.4 H (34.0-46.0) % MCV 93.8 (80.0-100.0) fL MCH 31.7 (25.0-35.0) pg MCHC 33.8 (31.0-37.0) g/dL RDW 12.9 (11.5-15.5) % Plt Count 231 (150-450) k/uL Neutrophils % 80 % Lymphocytes % 13 % Monocytes % 6 % Eosinophils % 1 % Basophils % 0 % Neutrophils # 10.0 H (1.3-7.7) k/uL Lymphocytes # 1.6 (1.0-4.8) k/uL Monocytes # 0.7 (0-1.0) k/uL Eosinophils # 0.1 (0-0.7) k/uL Basophils # 0.0 (0-0.2) k/uL Sodium (137-145) mmol/L Potassium (3.5-5.1) mmol/L Chloride (98-107) mmol/L Carbon Dioxide (22-30) mmol/L Anion Gap mmol/L BUN (7-17) mg/dL Creatinine (0.52-1.04) mg/dL Est GFR (CKD-EPI)AfAm (>60 ml/min/1.73 sqM) Est GFR (CKD-EPI)NonAf (>60 ml/min/1.73 sqM) Glucose (74-99) mg/dL Plasma Lactic Acid Sung 1.5 (0.7-2.0) mmol/L Calcium (8.4-10.2) mg/dL Total Bilirubin (0.2-1.3) mg/dL AST (14-36) U/L ALT (4-34) U/L Alkaline Phosphatase (38-126) U/L Creatine Kinase (30-135) U/L Total Protein (6.3-8.2) g/dL Albumin (3.5-5.0) g/dL Amylase (30-110) U/L Lipase (23-300) U/L Urine Color Light Yellow Urine Appearance Cloudy H (Clear) Urine pH 7.0 (5.0-8.0) Ur Specific [place] 1.008 (1.001-1.035) Urine Protein Trace H (Negative) Urine Glucose (UA) Negative (Negative) Urine Ketones Negative (Negative) Urine Blood Moderate H (Negative) Urine Nitrite Positive H (Negative) Urine Bilirubin Negative (Negative) Urine Urobilinogen <2.0 (<2.0) mg/dL Ur Leukocyte Esterase Large H (Negative) Urine RBC 10 H (0-5) /hpf Urine WBC 84 H (0-5) /hpf Urine WBC Clumps Few H (None) /hpf Ur Squamous Epith Cells 8 H (0-4) /hpf Urine Bacteria Many H (None) /hpf Urine Mucus Rare H (None) /hpf 11/02/19 Range/Units 04:02 WBC (3.8-10.6) k/uL RBC (3.80-5.40) m/uL Hgb (11.4-16.0) gm/dL Hct (34.0-46.0) % MCV (80.0-100.0) fL MCH (25.0-35.0) pg MCHC (31.0-37.0) g/dL RDW (11.5-15.5) % Plt Count (150-450) k/uL Neutrophils % % Lymphocytes % % Monocytes % % Eosinophils % % Basophils % % Neutrophils # (1.3-7.7) k/uL Lymphocytes # (1.0-4.8) k/uL Monocytes # (0-1.0) k/uL Eosinophils # (0-0.7) k/uL Basophils # (0-0.2) k/uL Sodium 137 (137-145) mmol/L Potassium 3.9 (3.5-5.1) mmol/L Chloride 106 (98-107) mmol/L Carbon Dioxide 23 (22-30) mmol/L Anion Gap 8 mmol/L BUN 13 (7-17) mg/dL Creatinine 0.75 (0.52-1.04) mg/dL Est GFR (CKD-EPI)AfAm >90 (>60 ml/min/1.73 sqM) Est GFR (CKD-EPI)NonAf >90 (>60 ml/min/1.73 sqM) Glucose 136 H (74-99) mg/dL Plasma Lactic Acid Sung (0.7-2.0) mmol/L Calcium 9.5 (8.4-10.2) mg/dL Total Bilirubin 0.4 (0.2-1.3) mg/dL AST 17 (14-36) U/L ALT 12 (4-34) U/L Alkaline Phosphatase 91 (38-126) U/L Creatine Kinase 54 (30-135) U/L Total Protein 7.2 (6.3-8.2) g/dL Albumin 4.4 (3.5-5.0) g/dL Amylase 87 (30-110) U/L Lipase 40 (23-300) U/L Urine Color Urine Appearance (Clear) Urine pH (5.0-8.0) Ur Specific [place] (1.001-1.035) Urine Protein (Negative) Urine Glucose (UA) (Negative) Urine Ketones (Negative) Urine Blood (Negative) Urine Nitrite (Negative) Urine Bilirubin (Negative) Urine Urobilinogen (<2.0) mg/dL Ur Leukocyte Esterase (Negative) Urine RBC (0-5) /hpf Urine WBC (0-5) /hpf Urine WBC Clumps (None) /hpf Ur Squamous Epith Cells (0-4) /hpf Urine Bacteria (None) /hpf Urine Mucus (None) /hpf - Radiology Data Radiology results: report reviewed (CT head and pelvis does show kidney stones and medullary kidney and right hydronephrosis with no ureteral calculus seen), image reviewed Disposition Clinical Impression: Urinary tract infection, Pyelonephritis of right kidney, Kidney stone Disposition: HOME SELF-CARE Condition: Good Instructions (If sedation given, give patient instructions): Kidney Stones (ED), Urinary Tract Infection in Women (ED), Kidney Infection (ED) Prescriptions: Cephalexin [Keflex] 500 mg PO Q6HR #56 cap Is patient prescribed a controlled substance at d/c from ED?: No Referrals: None,Stated [Primary Care Provider] - 1-2 days
[2019-11-02 04:01] LABS: Appearance,Urine Cloudy (Clear); Bacteria,Urine Many /hpf; Bilirubin,Urine Negative (Negative); Blood,Urine Moderate (Negative); Color,Urine Light Yellow; Glucose,Urine (UA) Negative (Negative); Ketones,Urine Negative (Negative); Leukocyte Esterase,Urine Large (Negative); Mucus,Urine Rare /hpf; Nitrite,Urine Positive (Negative); Protein,Urine Trace (Negative); RBC,Urine 10 /hpf (0-5); Specific Gravity,Urine 1.008 (1.001-1.035); Squamous Epithelial Cell,Urine 8 /hpf (0-4); Urobilinogen,Urine <2.0 mg/dL (<2.0); WBC,Urine 84 /hpf (0-5)
[2019-11-02 04:23] LABS: ALT 12 U/L (4-34); AST 17 U/L (14-36); African American GFR (CKD) >90 (>60 ml/min/1.73 sqM); Albumin 4.4 g/dL (3.5-5.0); Alkaline Phosphatase 91 U/L (38-126); Amylase 87 U/L (30-110); Anion Gap 8 mmol/L; Blood Urea Nitrogen 13 mg/dL (7-17); Calcium 9.5 mg/dL (8.4-10.2); Carbon Dioxide 23 mmol/L (22-30); Chloride 106 mmol/L (98-107); Creatine Kinase 54 U/L (30-135); Glucose 136 mg/dL (74-99); Non-African American GFR(CKD) >90 (>60 ml/min/1.73 sqM); Potassium 3.9 mmol/L (3.5-5.1); Sodium 137 mmol/L (137-145); Total Bilirubin 0.4 mg/dL (0.2-1.3); Total Protein 7.2 g/dL (6.3-8.2)
--- NOTE | 2019-11-02 04:29 | CT ---
EXAMINATION TYPE: CT abdomen pelvis wo con DATE OF EXAM: 11/02/2019 COMPARISON: None HISTORY: right sided flank pain CT DLP: 1283 mGycm Automated exposure control for dose reduction was used. Images were obtained from the diaphragm to the floor the pelvis with no contrast. FINDINGS: Lung bases are clear. There is no pleural effusion. Heart size is normal. Liver spleen stomach pancreas appear normal. There are clips from cholecystectomy. Bile ducts are not dilated. There is no adrenal mass. There are numerous bilateral renal calcifications. These measure up to 6 mm . There is mild right-sided hydronephrosis and proximal hydroureter. I see no definite ureteral calcu april. Lower right ureter is not dilated. Left kidney shows no hydronephrosis. Appendix is posterior and appears normal. Bladder distends smoothly. Uterus is anteverted. There is n o free fluid in the pelvis. Lumbar vertebra have normal spacing and alignment. There are multiple sac ral cyst extending from S1 to S5. There is no evidence of a pelvic mass. There is no free fluid in the pelvis. There is no inguinal her ez. There is no mesenteric edema. There is no ascites or free air. There is no sign of a bowel obstr uction. IMPRESSION: Numerous bilateral renal calculi. Right-sided hydronephrosis and proximal hydroureter suggestive of o bstruction. No ureteral stone seen. This appearance could relate to nonopaque stone or recently passe d stone. Normal appendix. Some of the calculi are papillary and peripheral and this could be form of medullary sponge kidney.
[2019-11-02 04:37] LABS: Basophils % (A) 0 %; Eosinophils # (A) 0.1 k/uL (0-0.7); Eosinophils % (A) 1 %; HCT 47.4 % (34.0-46.0); Lymphocytes # (A) 1.6 k/uL (1.0-4.8); Lymphocytes % (A) 13 %; MCH 31.7 pg (25.0-35.0); MCHC 33.8 g/dL (31.0-37.0); MCV 93.8 fL (80.0-100.0); Mean Platelet Volume 8.1; Monocytes # (A) 0.7 k/uL (0-1.0); Monocytes % (A) 6 %; Neutrophils % (A) 80 %; Platelet Count 231 k/uL (150-450); RBC 5.05 m/uL (3.80-5.40); RDW 12.9 % (11.5-15.5); WBC 12.6 k/uL (3.8-10.6)
[2019-11-02 05:36] VITALS: BP 129/77; PULSE 62; RESP 17; TEMP 97.6
== END 2019-11-02 05:36 | disposition home or self-care (01) ==
LOC: EC 02:58
DX: N12 Tubulo-interstitial nephritis, not specified as acute or chronic (principal); N20.0 Calculus of kidney; F17.200 Nicotine dependence, unspecified, uncomplicated; Z88.0 Allergy status to penicillin; Z90.49 Acquired absence of other specified parts of digestive tract
CPT/HCPCS: 36415; 80053; 82150; 82550; 83605; 83690; 85025; 81001; 87086; 74176; 99284; 96365; 96375 ×2; 96361; J2270; J0696; J1885

== ENCOUNTER 2020-07-28 07:13 | Emergency (ER) | payer OTHER ==
[2020-07-28 07:31] VITALS: TEMP 98.1
[2020-07-28] MEDS ORDERED: KETOROLAC 15 MG/ML 1 ML VIAL IVP STA (08:02)
[2020-07-28] MEDS ORDERED: SODIUM CHLORIDE 0.9% 1,000 ML IV STA (08:02)
[2020-07-28] MEDS ORDERED: HYDROmorphone 0.5 MG/0.5 ML SYRINGE IVP STA (08:02)
[2020-07-28] MEDS ORDERED: ONDANSETRON 4 MG/2 ML VIAL IVP STA (08:02)
[2020-07-28] MEDS ORDERED: SODIUM CHLORIDE 0.9% 500 ML 500 ML IV STA (08:02)
--- NOTE | 2020-07-28 08:05 | ED ---
Abdominal Pain HPI - General Chief Complaint: Abdominal Pain Stated Complaint: Right flank pain Time Seen by Provider: 07/28/20 07:34 Source: patient, family Mode of arrival: ambulatory Limitations: no limitations - History of Present Illness Initial Comments: 34-year-old male patient presents to the emergency department today for evaluation of right flank pain. States symptoms started around 0500 this morning. She does have a history of kidney sounds feels similar. She does report vomiting with this. Denies fever but states she is chilled. States she is currently on her period so she is unsure if she has blood in her urine. Denies any dysuria, urinary frequency, or urgency. Denies chance of . Patient denies any recent rash, cough, shortness of breath, chest pain, diarrhea, constipation, back pain, numbness, tingling, dizziness, weakness, headache, visual changes, or any other complaints. - Related Data Previous Rx's Medication Instructions Recorded Cephalexin [Keflex] 500 mg PO Q6H #40 cap 07/28/20 HYDROcodone/APAP 5-325MG [[place] 5] 1 each PO Q6HR PRN #12 tab 07/28/20 Ibuprofen [Motrin] 600 mg PO Q8HR PRN #30 tab 07/28/20 Ondansetron [Zofran ODT] 4 mg PO Q8HR PRN #10 tab 07/28/20 Tamsulosin HCl [Flomax] 0.4 mg PO DAILY #7 cap 07/28/20 Allergies Allergy/AdvReac Type Severity Reaction Status Date / Time Penicillins Allergy Rash/Hives Verified 07/28/20 09:39 Review of Systems ROS Statement: Those systems with pertinent positive or pertinent negative responses have been documented in the HPI. ROS Other: All systems not noted in ROS Statement are negative. 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 History of Any Multi-Drug Resistant Organisms: None Reported Past Surgical History: Section, Cholecystectomy Past Anesthesia/Blood Transfusion Reactions: No Reported Reaction Past Psychological History: No Psychological Hx Reported Smoking Status: Current every day smoker Past Alcohol Use History: None Reported Past Drug Use History: None Reported - Past Family History Father Family Medical History: No Reported History General Exam Limitations: no limitations General appearance: alert, in no apparent distress, other (Physical well- developed, well-nourished adult female patient in no acute distress. Vital signs upon presentation are temperature 98.1F, pulse 104, respirations 16, blood pressure 119/73, pulse ox 100% on room air.) Eye exam: Present: normal appearance, PERRL, EOMI. Absent: scleral icterus, conjunctival injection, periorbital swelling ENT exam: Present: normal exam, normal oropharynx, mucous membranes moist Respiratory exam: Present: normal lung sounds bilaterally. Absent: respiratory distress, wheezes, rales, rhonchi, stridor Cardiovascular Exam: Present: regular rate, normal rhythm, normal heart sounds. Absent: systolic murmur, diastolic murmur, rubs, gallop, clicks GI/Abdominal exam: Present: soft, normal bowel sounds. Absent: distended, tenderness, guarding, rebound, rigid Back exam: Present: CVA tenderness (R) Neurological exam: Present: alert, oriented X3, CN II-XII intact Psychiatric exam: Present: normal affect, normal mood Skin exam: Present: warm, dry, intact, normal color. Absent: rash Course Vital Signs 07/28/20 07:28 Temperature 98.1 F Pulse Rate 104 H Respiratory 16 Rate Blood Pressure 119/73 O2 Sat by Pulse 100 Oximetry Medical Decision Making - Medical Decision Making 34-year-old female patient presents to the emergency department today for evaluation of right flank pain. Does have history of kidney stones. Physical examination did reveal right CVA tenderness. Labs reviewed and did reveal elevated white blood cell count is 17.7. BUN and creatinine are normal. Urinalysis showed a cloudy appearance with large amount of blood, positive nitrite, large leukocyte esterase, 80 white blood cells, few white blood cell clumps, 9 squamous epithelial cells, few bacteria, rare mucous. This was sent for culture. CT abdomen and pelvis was obtained and showed a obstructing stone in the right distal ureter measuring 0.4 cm. Patient was given 2 g of IV Rocephin. She'll be discharged home on Keflex. She is also given medication for symptom control including [place] and Zofran. She started on Flomax. She'll be discharged to follow-up with the urologist as soon as possible. Return parameters discussed in detail. She verbalizes understanding and agrees with this plan. Case discussed with my attending Dr. Tellez. - Lab Data Result diagrams: 07/28/20 08:56 07/28/20 08:56 Lab Results 07/28/20 07/28/20 07/28/20 Range/Units 08:56 08:56 08:56 WBC 17.7 H (3.8-10.6) k/uL RBC 4.71 (3.80-5.40) m/uL Hgb 14.7 (11.4-16.0) gm/dL Hct 42.0 (34.0-46.0) % MCV 89.2 (80.0-100.0) fL MCH 31.2 (25.0-35.0) pg MCHC 34.9 (31.0-37.0) g/dL RDW 13.2 (11.5-15.5) % Plt Count 275 (150-450) k/uL MPV 6.9 Neutrophils % 92 % Lymphocytes % 5 % Monocytes % 1 % Eosinophils % 1 % Basophils % 0 % Neutrophils # 16.3 H (1.3-7.7) k/uL Lymphocytes # 0.9 L (1.0-4.8) k/uL Monocytes # 0.2 (0-1.0) k/uL Eosinophils # 0.3 (0-0.7) k/uL Basophils # 0.1 (0-0.2) k/uL Sodium 138 (137-145) mmol/L Potassium 4.2 (3.5-5.1) mmol/L Chloride 108 H (98-107) mmol/L Carbon Dioxide 20 L (22-30) mmol/L Anion Gap 10 mmol/L BUN 13 (7-17) mg/dL Creatinine 0.88 (0.52-1.04) mg/dL Est GFR (CKD-EPI)AfAm >90 (>60 ml/min/1.73 sqM) Est GFR (CKD-EPI)NonAf 87 (>60 ml/min/1.73 sqM) Glucose 101 H (74-99) mg/dL Calcium 9.2 (8.4-10.2) mg/dL Total Bilirubin 0.6 (0.2-1.3) mg/dL AST 24 (14-36) U/L ALT 12 (4-34) U/L Alkaline Phosphatase 95 (38-126) U/L Total Protein 6.9 (6.3-8.2) g/dL Albumin 3.9 (3.5-5.0) g/dL Lipase 37 (23-300) U/L Urine Color Light Yellow Urine Appearance Cloudy H (Clear) Urine pH 6.0 (5.0-8.0) Ur Specific [place] 1.004 (1.001-1.035) Urine Protein Negative (Negative) Urine Glucose (UA) Negative (Negative) Urine Ketones Negative (Negative) Urine Blood Large H (Negative) Urine Nitrite Positive H (Negative) Urine Bilirubin Negative (Negative) Urine Urobilinogen <2.0 (<2.0) mg/dL Ur Leukocyte Esterase Large H (Negative) Urine RBC 5 (0-5) /hpf Urine WBC 88 H (0-5) /hpf Urine WBC Clumps Few H (None) /hpf Ur Squamous Epith Cells 9 H (0-4) /hpf Urine Bacteria Few H (None) /hpf Urine Mucus Rare H (None) /hpf Urine HCG, Qual (Not Detectd) 07/28/20 Range/Units 08:56 WBC (3.8-10.6) k/uL RBC (3.80-5.40) m/uL Hgb (11.4-16.0) gm/dL Hct (34.0-46.0) % MCV (80.0-100.0) fL MCH (25.0-35.0) pg MCHC (31.0-37.0) g/dL RDW (11.5-15.5) % Plt Count (150-450) k/uL MPV Neutrophils % % Lymphocytes % % Monocytes % % Eosinophils % % Basophils % % Neutrophils # (1.3-7.7) k/uL Lymphocytes # (1.0-4.8) k/uL Monocytes # (0-1.0) k/uL Eosinophils # (0-0.7) k/uL Basophils # (0-0.2) k/uL Sodium (137-145) mmol/L Potassium (3.5-5.1) mmol/L Chloride (98-107) mmol/L Carbon Dioxide (22-30) mmol/L Anion Gap mmol/L BUN (7-17) mg/dL Creatinine (0.52-1.04) mg/dL Est GFR (CKD-EPI)AfAm (>60 ml/min/1.73 sqM) Est GFR (CKD-EPI)NonAf (>60 ml/min/1.73 sqM) Glucose (74-99) mg/dL Calcium (8.4-10.2) mg/dL Total Bilirubin (0.2-1.3) mg/dL AST (14-36) U/L ALT (4-34) U/L Alkaline Phosphatase (38-126) U/L Total Protein (6.3-8.2) g/dL Albumin (3.5-5.0) g/dL Lipase (23-300) U/L Urine Color Urine Appearance (Clear) Urine pH (5.0-8.0) Ur Specific [place] (1.001-1.035) Urine Protein (Negative) Urine Glucose (UA) (Negative) Urine Ketones (Negative) Urine Blood (Negative) Urine Nitrite (Negative) Urine Bilirubin (Negative) Urine Urobilinogen (<2.0) mg/dL Ur Leukocyte Esterase (Negative) Urine RBC (0-5) /hpf Urine WBC (0-5) /hpf Urine WBC Clumps (None) /hpf Ur Squamous Epith Cells (0-4) /hpf Urine Bacteria (None) /hpf Urine Mucus (None) /hpf Urine HCG, Qual Not Detected (Not Detectd) - Radiology Data Radiology results: report reviewed, image reviewed KUB x-ray is obtained. Report was reviewed in its entirety. Impression by Dr. Dunlap shows small left renal stones. Otherwise unremarkable abdomen. CT abdomen and pelvis without contrast was obtained. Report was reviewed in its entirety. Impression by Dr. Dunlap shows 0.4 cm obstructing proximal right ureteral stone with moderate right hydronephrosis. Multiple bilateral nono bstructing renal stones. Nonspecific mild infiltrate left base. Disposition Clinical Impression: Kidney stone on right side, Urinary tract infection Disposition: HOME SELF-CARE Condition: Good Instructions (If sedation given, give patient instructions): Kidney Stones (ED), Urinary Tract Infection in Women (ED) Additional Instructions: Complete antibiotic prescription and full. Take other medications as directed. Follow-up with urologist for further evaluation as as possible. Follow up with her primary care physician for recheck in 1-2 days. Return to the emergency department for any new, worsening, or concerning symptoms. Prescriptions: Tamsulosin HCl [Flomax] 0.4 mg PO DAILY #7 cap Cephalexin [Keflex] 500 mg PO Q6H #40 cap Ibuprofen [Motrin] 600 mg PO Q8HR PRN #30 tab PRN Reason: Pain HYDROcodone/APAP 5-325MG [[place] 5] 1 each PO Q6HR PRN #12 tab PRN Reason: Pain Ondansetron [Zofran ODT] 4 mg PO Q8HR PRN #10 tab PRN Reason: Nausea Is patient prescribed a controlled substance at d/c from ED?: Yes When asked, does pt state using other controlled substances?: No If prescribed controlled substance>3 days was MAPS reviewed?: Prescribed <3 Days If opioid is for acute pain is fill amount 7 days or less?: Yes If Rx opioid, was Start Talking consent form obtained?: Yes Referrals: Mandeep Pichardo MD [STAFF PHYSICIAN] - 1-2 days Time of Disposition: 11:20
[2020-07-28 09:02] LABS: Basophils # (A) 0.1 k/uL (0-0.2); Basophils % (A) 0 %; Eosinophils # (A) 0.3 k/uL (0-0.7); Eosinophils % (A) 1 %; HGB 14.7 gm/dL (11.4-16.0); Lymphocytes # (A) 0.9 k/uL (1.0-4.8); Lymphocytes % (A) 5 %; MCH 31.2 pg (25.0-35.0); MCHC 34.9 g/dL (31.0-37.0); MCV 89.2 fL (80.0-100.0); Mean Platelet Volume 6.9; Monocytes # (A) 0.2 k/uL (0-1.0); Monocytes % (A) 1 %; Neutrophils # (A) 16.3 k/uL (1.3-7.7); Neutrophils % (A) 92 %; Platelet Count 275 k/uL (150-450); RBC 4.71 m/uL (3.80-5.40); RDW 13.2 % (11.5-15.5); WBC 17.7 k/uL (3.8-10.6)
[2020-07-28 09:12] LABS: ALT 12 U/L (4-34); AST 24 U/L (14-36); African American GFR (CKD) >90 (>60 ml/min/1.73 sqM); Albumin 3.9 g/dL (3.5-5.0); Alkaline Phosphatase 95 U/L (38-126); Anion Gap 10 mmol/L; Blood Urea Nitrogen 13 mg/dL (7-17); Calcium 9.2 mg/dL (8.4-10.2); Carbon Dioxide 20 mmol/L (22-30); Chloride 108 mmol/L (98-107); Glucose 101 mg/dL (74-99); Lipase 37 U/L (23-300); Non-African American GFR(CKD) 87 (>60 ml/min/1.73 sqM); Potassium 4.2 mmol/L (3.5-5.1); Sodium 138 mmol/L (137-145); Total Bilirubin 0.6 mg/dL (0.2-1.3); Total Protein 6.9 g/dL (6.3-8.2)
[2020-07-28 09:13] LABS: Appearance,Urine Cloudy (Clear); Bacteria,Urine Few /hpf; Bilirubin,Urine Negative (Negative); Blood,Urine Large (Negative); Color,Urine Light Yellow; Glucose,Urine (UA) Negative (Negative); Ketones,Urine Negative (Negative); Leukocyte Esterase,Urine Large (Negative); Mucus,Urine Rare /hpf; Nitrite,Urine Positive (Negative); Protein,Urine Negative (Negative); RBC,Urine 5 /hpf (0-5); Specific Gravity,Urine 1.004 (1.001-1.035); Squamous Epithelial Cell,Urine 9 /hpf (0-4); Urobilinogen,Urine <2.0 mg/dL (<2.0); WBC,Urine 88 /hpf (0-5)
--- NOTE | 2020-07-28 09:26 | XR ---
EXAMINATION TYPE: XR KUB DATE OF EXAM: 07/28/2020 COMPARISON: None HISTORY: Abdomen pain TECHNIQUE: Frontal upright view of the abdomen FINDINGS: Normal colonic bowel gas is present. No free air is evident. No suspicious differential air -fluid levels are evident. Psoas margins are normal. Cholecystectomy clips are present. Osseous struc tures are normal. Organomegaly is not evident.r may be small 0.4 cm and less left renal stones presen t within the mid kidney. IMPRESSION: 1. Small left renal stones. 2. Otherwise unremarkable abdomen
--- NOTE | 2020-07-28 10:11 | CT ---
EXAMINATION TYPE: CT abdomen pelvis wo con DATE OF EXAM: 07/28/2020 COMPARISON: 11/02/2019 INDICATION: Rt flank pain DLP: 844.2 mGycm, Automated exposure control for dose reduction was used. CONTRAST: 0 mL of Isovue 300. Study performed without Oral Contrast TECHNIQUE: Axial images were obtained from above the diaphragm to the pubic rami in the axial plane a t 5 mm thick sections. Reconstructed images are reviewed on the computer in the coronal plane. FINDINGS: Limited CT sections are obtained the lung bases. There is some minimal infiltrate at the left base. This is nonspecific. Atelectasis and infectious etiologies could be considered.. CT ABDOMEN: Liver: Normal Spleen: Normal Pancreas: Normal Adrenal glands: The adrenal glands are normal. Gallbladder: Surgically absent Kidneys: r there are 2 superior left renal stones present without obstruction. 0.3 cm each. Series 20 1 image 40. Larger calcifications are in the mid upper pole measuring 0.3 cm each there is a small mi d posterior renal stone measuring 0.2 cm. Small calcifications with obstruction at the mid to inferio r pole measuring 0.3 cm and smaller. There is a large nonobstructing renal stone inferior pole left k idney measuring 0.8 x 0.9 cm. Additional smaller nonobstructing punctate renal stones are inferior po le. There are multiple punctate calcifications at the cortical medullary junction on the right. There is a moderate right hydronephrosis. Right hydroureter is present. Within the proximal ureters obstru cting 0.4 cm calcification. Series 201 image 79. Distal ureteral stones are not identified. No left h ydronephrosis is evident. No cysts are present. Aorta: Vascular calcification is within the aorta. Inferior vena cava: Normal. CT PELVIS: Loops of bowel within the abdomen and pelvis are normal. This study is performed without oral con trast limiting bowel evaluation. Appendix: Normal as visualized. Urinary bladder: Normal. This is partially decompressed with some limitation. Genitourinary structures: Uterus is normal. Adnexal regions are normal. Osseous structures: No suspicious lytic or sclerotic lesions. Tarlov cysts are likely present through the sacrum. IMPRESSIONS: 1. 0.4 cm obstructing proximal right ureteral stone with moderate right hydronephrosis. 2. Multiple bilateral nonobstructing renal stones. 3. Nonspecific mild infiltrate left base.
[2020-07-28] MEDS ORDERED: cefTRIAXone IN SWFI 1,000 MG/10 ML SYRINGE IVP STA (11:17)
[2020-07-28] MEDS ORDERED: HYDROmorphone 1 MG/ML 1 ML SYRINGE IVP STA (11:39)
[2020-07-28 11:55] VITALS: BP 122/86; PULSE 68; RESP 18
== END 2020-07-28 11:53 | disposition home or self-care (01) ==
LOC: EC 07:13
DX: N13.2 Hydronephrosis with renal and ureteral calculous obstruction (principal); N39.0 Urinary tract infection, site not specified; F17.200 Nicotine dependence, unspecified, uncomplicated; Z88.0 Allergy status to penicillin
CPT/HCPCS: 36415; 80053; 83690; 85025; 81001; 81025; 87086; 87077; 87186; 74018; 74176; 99284; 96374; 96375; 96376; 96361; J2405; J0696; J1170 ×2; J1885

== ENCOUNTER → 2020-08-01 | Outpatient (CLI) | payer OTHER ==
--- NOTE | 2020-08-01 15:30 | XR ---
KUB HISTORY: N 20.1, calculus Frontal KUB submitted on [address] scan 07/28/2020 Multiple cloudlike calcifications are present over the right kidney, left-sided calcifications partia lly obscured by bowel gas. Multiple pelvic calcifications are seen which likely represent phleboliths . There is distortion of the left ilium which may be posttraumatic. Surgical clips are present in the right upper quadrant. IMPRESSION: Bilateral nephrolithiasis.
== END | disposition home or self-care (01) ==
LOC: RADXRMAIN 09:52
PROVIDERS: ATTEND Urology
DX: N20.0 Calculus of kidney (principal)
CPT/HCPCS: 74018

== ENCOUNTER 2021-04-02 08:11 | Emergency (ER) | payer OTHER ==
[2021-04-02 08:22] VITALS: RESP 18; TEMP 98
[2021-04-02] MEDS ORDERED: SODIUM CHLORIDE 0.9% 1,000 ML IV STA (08:22)
[2021-04-02] MEDS ORDERED: ONDANSETRON 4 MG/2 ML VIAL IVP STA (08:22)
[2021-04-02] MEDS ORDERED: KETOROLAC 15 MG/ML 1 ML VIAL IVP STA (08:22)
[2021-04-02 08:41] LABS: Basophils # (A) 0.1 k/uL (0-0.2); Basophils % (A) 1 %; Eosinophils # (A) 0.2 k/uL (0-0.7); Eosinophils % (A) 2 %; HCT 46.8 % (34.0-46.0); HGB 15.5 gm/dL (11.4-16.0); Lymphocytes # (A) 1.6 k/uL (1.0-4.8); Lymphocytes % (A) 14 %; MCH 30.8 pg (25.0-35.0); MCHC 33.1 g/dL (31.0-37.0); MCV 93.1 fL (80.0-100.0); Mean Platelet Volume 7.4; Monocytes # (A) 0.5 k/uL (0-1.0); Monocytes % (A) 4 %; Neutrophils # (A) 9.2 k/uL (1.3-7.7); Neutrophils % (A) 79 %; Platelet Count 276 k/uL (150-450); RBC 5.02 m/uL (3.80-5.40); RDW 13.1 % (11.5-15.5); WBC 11.7 k/uL (3.8-10.6)
[2021-04-02 09:04] LABS: Appearance,Urine Cloudy (Clear); Bacteria,Urine Many /hpf; Bilirubin,Urine Negative (Negative); Blood,Urine Small (Negative); Color,Urine Yellow; Glucose,Urine (UA) Negative (Negative); Ketones,Urine Negative (Negative); Leukocyte Esterase,Urine Large (Negative); Mucus,Urine Rare /hpf; Nitrite,Urine Positive (Negative); Protein,Urine Trace (Negative); RBC,Urine 10 /hpf (0-5); Specific Gravity,Urine 1.019 (1.001-1.035); Squamous Epithelial Cell,Urine 1 /hpf (0-4); Urobilinogen,Urine <2.0 mg/dL (<2.0); WBC,Urine 36 /hpf (0-5)
[2021-04-02 09:07] LABS: ALT 14 U/L (4-34); AST 22 U/L (14-36); African American GFR (CKD) >90 (>60 ml/min/1.73 sqM); Albumin 4.3 g/dL (3.5-5.0); Alkaline Phosphatase 90 U/L (38-126); Amylase 69 U/L (30-110); Anion Gap 9 mmol/L; Blood Urea Nitrogen 12 mg/dL (7-17); Calcium 9.6 mg/dL (8.4-10.2); Carbon Dioxide 22 mmol/L (22-30); Chloride 107 mmol/L (98-107); Glucose 114 mg/dL (74-99); Lipase 47 U/L (23-300); Non-African American GFR(CKD) 84 (>60 ml/min/1.73 sqM); Sodium 138 mmol/L (137-145); Total Bilirubin 0.3 mg/dL (0.2-1.3); Total Protein 7.6 g/dL (6.3-8.2)
[2021-04-02] MEDS ORDERED: cefTRIAXone IN SWFI 1,000 MG/10 ML SYRINGE IVP STA (09:12)
--- NOTE | 2021-04-02 09:19 | CT ---
EXAMINATION TYPE: CT abdomen pelvis wo con DATE OF EXAM: 04/02/2021 COMPARISON: 07/28/2020 HISTORY: 35-year-old female with right flank pain, history of renal stones CT DLP: 1031.4 mGycm. Automated exposure control for dose reduction was used. TECHNIQUE: Contiguous axial scanning of the abdomen and pelvis without IV contrast. Coronal and sagit leona reconstructions performed. FINDINGS: Heart normal size without pericardial effusion. Hazy atelectasis at the left base. No pleural effusio n. Liver mildly enlarged at 18.5 cm. Otherwise, noncontrast appearance of the liver, adrenal glands, and pancreas show no gross abnormal body. Spleen borderline in size at 13.1 cm. Cholecystectomy clips. Kidneys show bilateral extensive nephrolithiasis with numerous calculi, largest on the left measuring 1.1 cm and largest on the right measuring 5 mm. There may be a component of medullary nephrocalcinos is. Recommend nephrology follow-up. There is moderate right-sided hydronephrosis with a 5 mm calculus at the upper right ureter. No dilated small bowel, free fluid, or free air. No mesenteric or retroperitoneal adenopathy. Normal appendix. Mild stool in the right side of the colon. Some submucosal fat deposition along the ascending colon may be idiopathic and related to obesity. Bladder nondistended. Uterus anteverted. Both ovaries are visualized. No abnormal fluid collection in the pelvis or pelvic lymphadenopathy. Multiple pelvic phleboliths. Bones: Bilateral superior acetabular retroversion may contribute to femoral acetabular impingement sy ndrome. Correlate for any chronic hip pain. No osseous destructive process. Right-sided sacral Tarlov cyst measuring at least 2.9 cm. IMPRESSION: 1. Numerous renal calculi bilaterally measuring up to 1.1 cm. 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 Recommend nephrology follow-up. 2. A 5 mm upper right ureteral calculus with moderate obstructive uropathy. This is likely recurrent from 07/28/2020.
[2021-04-02 09:45] VITALS: BP 129/78; PULSE 87
--- NOTE | 2021-04-02 09:53 | ED ---
Abdominal Pain HPI - General Chief Complaint: Abdominal Pain Stated Complaint: possible kidney stones Time Seen by Provider: 04/02/21 08:22 Source: patient, RN notes reviewed Limitations: no limitations - History of Present Illness Initial Comments: Patient is a 35-year-old female that presents to the emergency department complaining of right flank and abdominal pain. She notes she does have a history of kidney stones and this feels exactly like her last episode. She denied any urinary issues such as dysuria or frequency. She was otherwise well- appearing in good spirits. She did appear to be mildly uncomfortable sitting up in bed during initial evaluation. She denied any chest pain shortness of breath headache nausea vomiting diarrhea constipation fever fatigue chills. - Related Data Previous Rx's Medication Instructions Recorded Ketorolac [Toradol] 10 mg PO Q8HR #15 tab 04/02/21 Sulfamethox-Tmp 800-160Mg [Bactrim 1 each PO Q12HR #20 tab 04/02/21 Ds] Tamsulosin [Flomax] 0.4 mg PO DAILY #7 cap 04/02/21 Allergies Allergy/AdvReac Type Severity Reaction Status Date / Time Penicillins Allergy Rash/Hives Verified 04/02/21 09:17 Review of Systems ROS Statement: Those systems with pertinent positive or pertinent negative responses have been documented in the HPI. ROS Other: All systems not noted in ROS Statement are negative. 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 History of Any Multi-Drug Resistant Organisms: None Reported Past Surgical History: Section, Cholecystectomy Past Anesthesia/Blood Transfusion Reactions: No Reported Reaction Past Psychological History: No Psychological Hx Reported Smoking Status: Current every day smoker Past Alcohol Use History: None Reported Past Drug Use History: None Reported - Past Family History Father Family Medical History: No Reported History General Exam Limitations: no limitations General appearance: alert, in no apparent distress, obese Head exam: Present: atraumatic, normocephalic, normal inspection Eye exam: Present: normal appearance, PERRL, EOMI. Absent: scleral icterus, conjunctival injection, periorbital swelling ENT exam: Present: normal exam, mucous membranes moist Neck exam: Present: normal inspection Respiratory exam: Present: normal lung sounds bilaterally. Absent: respiratory distress, wheezes, rales, rhonchi, stridor Cardiovascular Exam: Present: regular rate, normal rhythm, normal heart sounds. Absent: systolic murmur, diastolic murmur, rubs, gallop, clicks Extremities exam: Present: normal inspection, full ROM, normal capillary refill. Absent: tenderness, pedal edema, joint swelling, calf tenderness Back exam: Present: normal inspection, CVA tenderness (R) Neurological exam: Present: alert, oriented X3 Psychiatric exam: Present: normal affect, normal mood Skin exam: Present: warm, dry, intact, normal color. Absent: rash Course Vital Signs 04/02/21 04/02/21 08:21 09:43 Temperature 98 F Pulse Rate 101 H 87 Respiratory 18 18 Rate Blood Pressure 148/89 129/78 O2 Sat by Pulse 100 100 Oximetry Medical Decision Making - Medical Decision Making 35-year-old female complaining of right flank and abdominal pain. Labs, 1 L normal saline, 15 mg of Toradol, 4 mg of Zofran, CT of the abdomen and pelvis ordered. Labs: White blood cells 11.7, CMP unremarkable, urinalysis is positive for nitrites 36 white blood cells and many bacteria. CT of the abdomen and pelvis: Numerous renal calculi bilaterally measuring up to 1.1 cm. 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 Recommend nephrology follow-up. A 5 mm upper right ureteral calculus with moderate obstructive uropathy. This is likely recurrent from 07/28/2020. 1 g of Rocephin ordered. Antibiotics sent to pharmacy. Case discussed with Dr. Arora. Dr. Parish was consulted and is agreeable with discharge home with follow-up in office tomorrow. - Lab Data Result diagrams: 04/02/21 08:28 04/02/21 08:28 Lab Results 04/02/21 04/02/21 04/02/21 Range/Units 08:28 08:28 08:28 WBC 11.7 H (3.8-10.6) k/uL RBC 5.02 (3.80-5.40) m/uL Hgb 15.5 (11.4-16.0) gm/dL Hct 46.8 H (34.0-46.0) % MCV 93.1 (80.0-100.0) fL MCH 30.8 (25.0-35.0) pg MCHC 33.1 (31.0-37.0) g/dL RDW 13.1 (11.5-15.5) % Plt Count 276 (150-450) k/uL MPV 7.4 Neutrophils % 79 % Lymphocytes % 14 % Monocytes % 4 % Eosinophils % 2 % Basophils % 1 % Neutrophils # 9.2 H (1.3-7.7) k/uL Lymphocytes # 1.6 (1.0-4.8) k/uL Monocytes # 0.5 (0-1.0) k/uL Eosinophils # 0.2 (0-0.7) k/uL Basophils # 0.1 (0-0.2) k/uL Sodium (137-145) mmol/L Potassium (3.5-5.1) mmol/L Chloride (98-107) mmol/L Carbon Dioxide (22-30) mmol/L Anion Gap mmol/L BUN (7-17) mg/dL Creatinine (0.52-1.04) mg/dL Est GFR (CKD-EPI)AfAm (>60 ml/min/1.73 sqM) Est GFR (CKD-EPI)NonAf (>60 ml/min/1.73 sqM) Glucose (74-99) mg/dL Calcium (8.4-10.2) mg/dL Total Bilirubin (0.2-1.3) mg/dL AST (14-36) U/L ALT (4-34) U/L Alkaline Phosphatase (38-126) U/L Total Protein (6.3-8.2) g/dL Albumin (3.5-5.0) g/dL Amylase (30-110) U/L Lipase (23-300) U/L Urine Color Yellow Urine Appearance Cloudy H (Clear) Urine pH 6.0 (5.0-8.0) Ur Specific [place] 1.019 (1.001-1.035) Urine Protein Trace H (Negative) Urine Glucose (UA) Negative (Negative) Urine Ketones Negative (Negative) Urine Blood Small H (Negative) Urine Nitrite Positive H (Negative) Urine Bilirubin Negative (Negative) Urine Urobilinogen <2.0 (<2.0) mg/dL Ur Leukocyte Esterase Large H (Negative) Urine RBC 10 H (0-5) /hpf Urine WBC 36 H (0-5) /hpf Urine WBC Clumps Few H (None) /hpf Ur Squamous Epith Cells 1 (0-4) /hpf Urine Bacteria Many H (None) /hpf Urine Mucus Rare H (None) /hpf Urine HCG, Qual Not Detected (Not Detectd) 04/02/21 Range/Units 08:28 WBC (3.8-10.6) k/uL RBC (3.80-5.40) m/uL Hgb (11.4-16.0) gm/dL Hct (34.0-46.0) % MCV (80.0-100.0) fL MCH (25.0-35.0) pg MCHC (31.0-37.0) g/dL RDW (11.5-15.5) % Plt Count (150-450) k/uL MPV Neutrophils % % Lymphocytes % % Monocytes % % Eosinophils % % Basophils % % Neutrophils # (1.3-7.7) k/uL Lymphocytes # (1.0-4.8) k/uL Monocytes # (0-1.0) k/uL Eosinophils # (0-0.7) k/uL Basophils # (0-0.2) k/uL Sodium 138 (137-145) mmol/L Potassium 4.0 (3.5-5.1) mmol/L Chloride 107 (98-107) mmol/L Carbon Dioxide 22 (22-30) mmol/L Anion Gap 9 mmol/L BUN 12 (7-17) mg/dL Creatinine 0.90 (0.52-1.04) mg/dL Est GFR (CKD-EPI)AfAm >90 (>60 ml/min/1.73 sqM) Est GFR (CKD-EPI)NonAf 84 (>60 ml/min/1.73 sqM) Glucose 114 H (74-99) mg/dL Calcium 9.6 (8.4-10.2) mg/dL Total Bilirubin 0.3 (0.2-1.3) mg/dL AST 22 (14-36) U/L ALT 14 (4-34) U/L Alkaline Phosphatase 90 (38-126) U/L Total Protein 7.6 (6.3-8.2) g/dL Albumin 4.3 (3.5-5.0) g/dL Amylase 69 (30-110) U/L Lipase 47 (23-300) U/L Urine Color Urine Appearance (Clear) Urine pH (5.0-8.0) Ur Specific [place] (1.001-1.035) Urine Protein (Negative) Urine Glucose (UA) (Negative) Urine Ketones (Negative) Urine Blood (Negative) Urine Nitrite (Negative) Urine Bilirubin (Negative) Urine Urobilinogen (<2.0) mg/dL Ur Leukocyte Esterase (Negative) Urine RBC (0-5) /hpf Urine WBC (0-5) /hpf Urine WBC Clumps (None) /hpf Ur Squamous Epith Cells (0-4) /hpf Urine Bacteria (None) /hpf Urine Mucus (None) /hpf Urine HCG, Qual (Not Detectd) - Radiology Data Radiology results: report reviewed, image reviewed CT of the abdomen and pelvis: Numerous renal calculi bilaterally measuring up to 1.1 cm. 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 Recommend nephrology follow-up. A 5 mm upper right ureteral calculus with moderate obstructive uropathy. This is likely recurrent from 07/28/2020. Disposition Clinical Impression: Urinary tract infection, Bilateral kidney stones Disposition: HOME SELF-CARE Condition: Stable Instructions (If sedation given, give patient instructions): Kidney Stones (ED) Additional Instructions: Please return to the Emergency Department if symptoms worsen or any other concerns. Follow-up with Dr. Parish in office tomorrow. Take antibiotics as prescribed. Take medications as prescribed. Prescriptions: Sulfamethox-Tmp 800-160Mg [Bactrim Ds] 1 each PO Q12HR #20 tab Tamsulosin [Flomax] 0.4 mg PO DAILY #7 cap Ketorolac [Toradol] 10 mg PO Q8HR #15 tab Is patient prescribed a controlled substance at d/c from ED?: No Referrals: None,Stated [Primary Care Provider] - 1-2 days Pipe Parish MD [STAFF PHYSICIAN] - 1-2 days Time of Disposition: 09:53
== END 2021-04-02 10:02 | disposition home or self-care (01) ==
LOC: EC 08:11
DX: N39.0 Urinary tract infection, site not specified (principal); N20.0 Calculus of kidney; F17.200 Nicotine dependence, unspecified, uncomplicated
CPT/HCPCS: 36415; 80053; 82150; 83690; 85025; 81001; 81025; 87086; 74176; 99284; 96374; 96375 ×2; 96361; J2405; J0696; J1885; 87077; 87186

== ENCOUNTER 2021-04-04 09:52 | Day surgery (SDC) | payer OTHER ==
[2021-04-03 13:52] VITALS: BMI 34.5
--- NOTE | 2021-04-03 20:24 | P.GSHP ---
History of Present Illness H&P Date: 04/03/21 35 yo female with a history of stones who presented 04/02 to the [facility] er with flank pain n the right , nausea and vomiting. She was identified to have a 5mm proximal ureteral stone in the right proximal ureter. She was placed on ab and referred to our office. Today she was seen and still having pain. Because of that she is set u for cysto possible stone manipulation, probable right ureteral stent. She is on ab. She understands that if her bladder looks infected a stent will be placed and secondarily a stone manipulation will be performed Her wcbc wer 11k and she was afebrile/ Past Medical History Past Medical History: Neurologic Disorder Additional Past Medical History / Comment(s): Patient has a history of cleft lip and palate status post repair. 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, kidney stones History of Any Multi-Drug Resistant Organisms: None Reported Past Surgical History: Section, Cholecystectomy, Tubal Ligation Past Anesthesia/Blood Transfusion Reactions: No Reported Reaction Smoking Status: Current every day smoker - Past Family History Father Family Medical History: No Reported History Medications and Allergies Home Medications Medication Instructions Recorded Confirmed Type Ketorolac [Toradol] 10 mg PO Q8HR #15 tab 04/02/21 04/03/21 Rx Sulfamethox-Tmp 800-160Mg [Bactrim 1 each PO Q12HR #20 tab 04/02/21 04/03/21 Rx Ds] Tamsulosin [Flomax] 0.4 mg PO DAILY #7 cap 04/02/21 04/03/21 Rx Allergies Allergy/AdvReac Type Severity Reaction Status Date / Time Penicillins Allergy Rash/Hives Verified 04/03/21 13:47 Surgical - Exam - General well developed, well nourished, moderate distress - Eyes PERRL - ENT no hearing loss - Neck no masses - Respiratory normal expansion, normal respiratory effort - Cardiovascular Rhythm: regular - Abdomen Abdomen: soft, tender - Neurologic normal coordination, normal sensation - Musculoskeletal normal gait, normal posture - Psychiatric oriented to time, oriented to person, oriented to place, speech is normal, memory intact Results - Imaging CT scan - abdomen: report reviewed, image reviewed CT scan - pelvis: report reviewed, image reviewed Assessment and Plan Assessment: Impression: right ureteral stone with obstruction and pain. Possible uti with sepsis. Plan: cysto probable right double j catheter, possible right ureteral stone manipulation
[~2021-04-04 09:52] MED LIST: DEXAMETHASONE SOD PHOSPHATE 4 MG/ML 1 ML VIAL IV ONE; GENTAMICIN 120 MG in SODIUM CHLORIDE 0.9% 100 ML IVPB PRN; HYDROmorphone 0.5 MG/0.5 ML SYRINGE IVP PRN; ONDANSETRON 4 MG/2 ML VIAL IVP ONE; Pre Op ABX Message 1 EACH MISC MISCELLANE ONE
--- NOTE | 2021-04-04 10:28 | XR ---
EXAMINATION TYPE: XR KUB DATE OF EXAM: 04/04/2021 COMPARISON: 08/01/2020 HISTORY: Preop TECHNIQUE: One view abdominal series FINDINGS: The osseous structures are intact. The bowel gas pattern is nonspecific. Calcifications in the pelvi s appear vascular. There are bilateral punctate calculi. Largest on the left measures approximately 6 mm. Evaluation is limited due to the amount of bowel content. Suspect at least 10 punctate calcifica tions on the right and left. IMPRESSION: 1. Bilateral nephrolithiasis. Proximal ureteral calcification seen by recent CT scan is difficult to assess due to bowel content. Possibly overlying the sacrum on the right correlate clinically.
[2021-04-04] MEDS: LACTATED RINGERS 1,000 ML IV SCH ×2 (10:48→11:33)
[2021-04-04] MEDS ORDERED: PROPOFOL 10 MG/ML 20 ML VIAL IV ONE (11:32)
[2021-04-04] MEDS ORDERED: MIDAZOLAM 2 MG/2 ML VIAL ONE (11:32)
[2021-04-04] MEDS ORDERED: fentaNYL (PF) 50 MCG/ML 2 ML AMP ONE (11:32)
[2021-04-04] MEDS ORDERED: LIDOCAINE 1% INJ 10MG/ML (20 ML MDV) ONE (11:32)
--- NOTE | 2021-04-04 12:05 | P.OP ---
Date of Procedure: 04/04/21 Preoperative Diagnosis: Right ureteral calculus with obstruction, urinary tract infection Postoperative Diagnosis: Same Procedure(s) Performed: Cystoscopy, placement of double-J catheter right Anesthesia: AMY Surgeon: Pipe Parish Estimated Blood Loss (ml): 0 Pathology: none sent Condition: stable Disposition: PACU Indications for Procedure: The patient is 35. She has a history of stones. She is in the emergency room on Friday night with an obstructing stone and a possible urine infection her white count was 11.8. I saw her yesterday and she is still very uncomfortable. I fever but did not look very well. She had been placed on sulfa. Urine culture comes back this morning with E. coli resistant to sulfa. She is ALLERGIC to penicillin. She was given gentamicin preoperatively. I will do cystoscopy. The bladder looks inflamed and I will replace a stent if it looks clear then I'll consider a stone manipulation Description of Procedure: Patient brought the operating suite she is given general anesthesia. She's placed lithotomy position with sterile prep and drape. Cystoscopy Foroblique lens and 22-Urdu sheath identifies a normal urethra. There is both acute and chronic cystitis noted in the bladder wall. Right ureteral orifice is identified with an 035 wire is passed up into the kidney. Over the wires passed a 6 x 26 double-J cath that coils in the bladder and the kidney. The bladder strain the patient awake and returned recovery in good condition. She'll be discharged home upon recovery. She'll be given a prescription of Macrobid. She'll have a right ureteroscopy stone and stent removal set up for 10 days to 2 weeks.
[2021-04-04 12:10] VITALS: TEMP 97.5
[2021-04-04 13:11] VITALS: BP 139/84; PULSE 70; RESP 20
--- NOTE | 2021-04-04 13:36 | FL ---
Fluoroscopy HISTORY: Right ureteral stone 11 seconds fluoroscopy time supplied to the referring clinician. 1 intraoperative C-arm images docum ent the procedure. See dictated report from urology.
== END 2021-04-04 14:11 | disposition home or self-care (01) ==
LOC: OR 09:52
PROVIDERS: ATTEND Urology
DX: N20.1 Calculus of ureter (principal); F17.200 Nicotine dependence, unspecified, uncomplicated
CPT/HCPCS: 52332; 81025; 74018; C2625; C1769; J2250; J1100; J2405; J2001; J3010; J1580; J2704

== ENCOUNTER → 2021-04-06 | Outpatient (CLI) | payer OTHER ==
[2021-04-06 10:46] LABS: Basophils % (A) 0 %; Eosinophils # (A) 0.1 k/uL (0-0.7); Eosinophils % (A) 1 %; HCT 42.7 % (34.0-46.0); HGB 14.1 gm/dL (11.4-16.0); Lymphocytes # (A) 2.3 k/uL (1.0-4.8); Lymphocytes % (A) 27 %; MCH 31.2 pg (25.0-35.0); MCHC 33.1 g/dL (31.0-37.0); MCV 94.4 fL (80.0-100.0); Mean Platelet Volume 7.4; Monocytes # (A) 0.5 k/uL (0-1.0); Monocytes % (A) 6 %; Neutrophils # (A) 5.4 k/uL (1.3-7.7); Neutrophils % (A) 63 %; Platelet Count 301 k/uL (150-450); RBC 4.53 m/uL (3.80-5.40); RDW 13.1 % (11.5-15.5); WBC 8.6 k/uL (3.8-10.6)
[2021-04-06 11:11] LABS: Appearance,Urine Cloudy (Clear); Bacteria,Urine Many /hpf; Bilirubin,Urine Negative (Negative); Blood,Urine Large (Negative); Color,Urine Yellow; Glucose,Urine (UA) Negative (Negative); Ketones,Urine Negative (Negative); Leukocyte Esterase,Urine Large (Negative); Mucus,Urine Rare /hpf; Nitrite,Urine Negative (Negative); PH, Urine 6.5 (5.0-8.0); Protein,Urine 1+ (Negative); RBC,Urine >182 /hpf (0-5); Specific Gravity,Urine 1.012 (1.001-1.035); Squamous Epithelial Cell,Urine 6 /hpf (0-4); Urobilinogen,Urine <2.0 mg/dL (<2.0); WBC,Urine 20 /hpf (0-5)
== END | disposition home or self-care (01) ==
LOC: LABPAT 10:06
PROVIDERS: ATTEND Urology
DX: Z01.812 Encounter for preprocedural laboratory examination (principal); N20.1 Calculus of ureter
CPT/HCPCS: 81001; 85025; 87086

== ENCOUNTER 2021-04-11 08:06 | Day surgery (SDC) | payer OTHER ==
[2021-04-09 09:55] VITALS: BMI 34.0
--- NOTE | 2021-04-10 13:02 | P.GSHP ---
History of Present Illness H&P Date: 04/10/21 35 yo female who recently had a right double j cath placed for an obstructing stone with uti. SHe now comes a week later for a right ureteroscopy, laser litho with stone and stent removal. - Constitutional Constitutional: Denies chills, Denies fever - EENT Eyes: denies blurred vision, denies pain Ears, nose, mouth and throat: Denies headache, Denies sore throat - Cardiovascular Cardiovascular: Denies chest pain, Denies shortness of breath - Respiratory Respiratory: Denies cough, Denies 7 - Gastrointestinal Gastrointestinal: Denies abdominal pain, Denies diarrhea, Denies nausea, Denies vomiting - Genitourinary (Female) Genitourinary: Denies dysuria, Denies hematuria - Genitourinary (Male) Genitourinary: Denies dysuria, Denies hematuria - Musculoskeletal Musculoskeletal: Denies myalgias - Integumentary Integumentary: Denies pruritus, Denies rash - Neurological Neurological: Denies numbness, Denies weakness - Psychiatric Psychiatric: Denies anxiety, Denies depression - Endocrine Endocrine: Denies fatigue, Denies weight change Past Medical History Past Medical History: Neurologic Disorder Additional Past Medical History / Comment(s): Hx of cleft lip and palate. Hx of Guillain-[place] Syndrome. Kidney stones. History of Any Multi-Drug Resistant Organisms: None Reported Past Surgical History: Section, Cholecystectomy, Tubal Ligation Additional Past Surgical History / Comment(s): Cystoscopy. Past Anesthesia/Blood Transfusion Reactions: No Reported Reaction Past Psychological History: No Psychological Hx Reported Smoking Status: Current every day smoker Past Alcohol Use History: None Reported Additional Past Alcohol Use History / Comment(s): Smokes 1/2 ppd X15 yrs. Past Drug Use History: None Reported - Past Family History Father Family Medical History: No Reported History Medications and Allergies Home Medications Medication Instructions Recorded Confirmed Type Nitrofurantoin Monohyd/M-Cryst 100 mg PO Q12HR #30 cap 04/04/21 04/09/21 Rx [Macrobid] Ketorolac [Toradol] 10 mg PO Q8HR PRN 04/09/21 04/09/21 History Allergies Allergy/AdvReac Type Severity Reaction Status Date / Time Penicillins Allergy Rash/Hives Verified 04/09/21 09:56 Surgical - Exam - General well developed, well nourished, no distress - Eyes normal ocular movement, no icteric - ENT no hearing loss, no congestion - Neck no masses, trachea midline - Respiratory normal respiratory effort, clear to auscultation - Abdomen Abdomen: soft, non tender, no guarding, no rigid, no rebound - Integumentary no rash, no abnormal pigmentation - Neurologic no disoriented, no combative - Psychiatric oriented to time, oriented to person, oriented to place, speech is normal, memory intact Results - Imaging CT scan - abdomen: report reviewed, image reviewed CT scan - pelvis: report reviewed, image reviewed Assessment and Plan Assessment: Impression: right ureteral stone with laser lithotripsy Plan: right ureteroscopy with laser lithotripsy stone and stent removal
[~2021-04-11 08:06] MED LIST changes: -DEXAMETHASONE SOD PHOSPHATE 4 MG/ML 1 ML VIAL IV ONE; +GENTAMICIN 110 MG in SODIUM CHLORIDE 0.9% 100 ML IVPB PRN; -GENTAMICIN 120 MG in SODIUM CHLORIDE 0.9% 100 ML IVPB PRN; +LACTATED RINGERS 1,000 ML IV SCH; +LIDOCAINE 1% (10MG/ML) FOR IV START INTRADERMA PRN; +MIDAZOLAM 2 MG/2 ML VIAL IV PRN; -ONDANSETRON 4 MG/2 ML VIAL IVP ONE; +ONDANSETRON 4 MG/2 ML VIAL IVP PRN; -Pre Op ABX Message 1 EACH MISC MISCELLANE ONE
[2021-04-11] MEDS ORDERED: DEXAMETHASONE SOD PHOSPHATE 4 MG/ML 1 ML VIAL IVP ONE (09:03)
[2021-04-11] MEDS ORDERED: fentaNYL (PF) 50 MCG/ML 2 ML AMP ONE (10:15)
[2021-04-11] MEDS ORDERED: PROPOFOL 10 MG/ML 20 ML VIAL IV ONE (10:15)
[2021-04-11] MEDS ORDERED: LIDOCAINE 1% INJ 10MG/ML (20 ML MDV) ONE (10:15)
[2021-04-11] MEDS ORDERED: MIDAZOLAM 2 MG/2 ML VIAL ONE (10:15)
[2021-04-11 11:08] VITALS: RESP 16; TEMP 98.2
--- NOTE | 2021-04-11 11:12 | FL ---
Fluoroscopy History: RT URETEROSCOPY rt side kid stone/lithotripsy. 1 sec fl time. 1 image
--- NOTE | 2021-04-11 11:15 | P.OP ---
Date of Procedure: 04/11/21 Preoperative Diagnosis: Right ureteral and renal calculi, status post stent placement for obstructing stone with urosepsis Postoperative Diagnosis: Same Procedure(s) Performed: Cystoscopy, removal double-J catheter right, right ureteroscopy and renoscopy w ith laser lithotripsy. Anesthesia: ISHMAELA Surgeon: Pipe Parish Estimated Blood Loss (ml): 0 Pathology: none sent Condition: stable Disposition: PACU Indications for Procedure: Patient is 35. Last week she was in the hospital for an obstructing right ureteral stone, urinary tract infection with sepsis. A right double-J catheter was placed. She's been on antibiotics since. She now comes for cystoscopy, removal stent, right ureteroscopy and renoscopy to remove the obstructing ureteral stone and the small renal stones noted on the computed tomography scan Description of Procedure: The patient is brought to the operating suite. She is given a general anesthetic. She's placed lithotomy position with sterile prep and drape. Cystoscopy Foroblique lens and 21-[place] sheath identifies chronic cystitis cystica. The double-J catheters identified and pulled to the urethral meatus. An 035 wires passed up into the kidney and the stent was removed. Alongside the wires pass a flexible ureteroscope. Her and see no evidence of stone. At passed into the kidney and the larger stone is in the middle pole calyx . Then I look through each calyx and there are small stones or Harvey's plaques noted. With the 275 laser probe I then dust each stone into tiny sand-like fragments appeared the larger stone is easily dusted. The rest of his Harvey's plaques and calyceal stones or dusted. There are no remaining significant fragments. There for all the fragments are at the largest the size of the tip of the laser probe up. I thus removed the wire of the ureteroscope in the bladder the patient's awake and returned recovery in good condition Impression successful removal pelvic catheter right ureteroscopy and renoscopy with laser lithotripsy to the offending stones a. Patient be discharged home upon recovery and found the office.
[2021-04-11 11:57] VITALS: BP 132/85; PULSE 66
--- NOTE | 2021-04-12 11:21 | XR ---
EXAMINATION TYPE: XR KUB DATE OF EXAM: 04/11/2021 HISTORY: Pain Comparison: 04/04/2021 Single KUB is submitted for interpretation. Findings: Right renal calculi: None Visualized. Right ureteral calculi: Interval placement of double pigtail ureteral stent Left renal calculi: Left renal calculi redemonstrated without significant change. Largest calculus i s seen within the mid pole region and measures approximately 5 mm. Left ureteral calculi: None Visualized. Pelvic calcifications: None Visualized. Bowel gas pattern is unremarkable. No free air. No mass effects. IMPRESSION: 1. As above
== END 2021-04-11 12:11 | disposition home or self-care (01) ==
LOC: OR 08:06
PROVIDERS: ATTEND Urology
DX: N20.0 Calculus of kidney (principal); N30.20 Other chronic cystitis without hematuria; Q37.9 Unspecified cleft palate with unilateral cleft lip; Z87.442 Personal history of urinary calculi; G61.0 Guillain-Barre syndrome; J45.909 Unspecified asthma, uncomplicated; F17.210 Nicotine dependence, cigarettes, uncomplicated; Z97.2 Presence of dental prosthetic device (complete) (partial); Z98.891 History of uterine scar from previous surgery; Z90.49 Acquired absence of other specified parts of digestive tract; Z98.51 Tubal ligation status; Z88.0 Allergy status to penicillin
CPT/HCPCS: 81025; 74018; 52353; C1769; J2250; J1100; J2405; J2001; J3010; J1580; J2704

== ENCOUNTER 2021-07-08 01:38 | Emergency (ER) | payer OTHER ==
[2021-07-08] MEDS ORDERED: KETOROLAC 15 MG/ML 1 ML VIAL IVP STA (02:01)
[2021-07-08] MEDS ORDERED: ONDANSETRON 4 MG/2 ML VIAL IVP STA (02:01)
[2021-07-08] MEDS ORDERED: SODIUM CHLORIDE 0.9% 1,000 ML IV STA (02:01)
--- NOTE | 2021-07-08 02:06 | ED ---
Abdominal Pain HPI - General Chief Complaint: Abdominal Pain Stated Complaint: kidney pain Time Seen by Provider: 07/08/21 01:57 Source: patient, RN notes reviewed Mode of arrival: ambulatory Limitations: no limitations - History of Present Illness Initial Comments: This is a pleasant 35-year-old female with a history of kidney stones. Patient presents to the emergency department complaining of sharp left flank pain which started about midnight. She states it came on suddenly. She states it does wax and wane in intensity and has some dullness. However current pain is 10 out of 10 in intensity. She did take hydrocodone/acetaminophen at home prior to arrival but states she vomited about 15 minutes after taking it. Patient denies any problems with bowel movements. Denies any hematuria. Denies any known fever. Patient has previously had a tubal ligation. No headache, no fever or chills, no changes in vision or hearing, no sore throat or difficulty with speech, no neck pain, no chest pain or shortness of breath, n o changes in urination or bowel movements, no numbness or tingling, no extremity pain, no skin rashes or lesions. Patient states that she previously had to see Dr. Parish for lithotripsy. MD Complaint: abdominal pain - Related Data Previous Rx's Medication Instructions Recorded Sulfamethox-Tmp 800-160Mg [Bactrim 1 each PO Q12HR #6 tab 04/16/21 Ds] Cefdinir 300 mg PO Q12HR #20 cap 07/08/21 HYDROcodone/APAP 5-325MG [[place] 1 tab PO Q6HR PRN 3 Days #12 tab 07/08/21 5-325] Ibuprofen [Motrin] 600 mg PO Q8HR PRN #30 tab 07/08/21 Ondansetron [Zofran ODT] 4 mg PO Q8HR #20 tab 07/08/21 Allergies Allergy/AdvReac Type Severity Reaction Status Date / Time Penicillins Allergy Rash/Hives Verified 07/08/21 01:45 Review of Systems ROS Statement: Those systems with pertinent positive or pertinent negative responses have been documented in the HPI. ROS Other: All systems not noted in ROS Statement are negative. Past Medical History Past Medical History: Neurologic Disorder Additional Past Medical History / Comment(s): Hx of cleft lip and palate. Hx of Guillain-[place] Syndrome. Hx kidney stones. History of Any Multi-Drug Resistant Organisms: None Reported Past Surgical History: Section, Cholecystectomy, Tubal Ligation Additional Past Surgical History / Comment(s): Cystoscopy, surgery for kidney stones. Past Anesthesia/Blood Transfusion Reactions: No Reported Reaction Past Psychological History: No Psychological Hx Reported Smoking Status: Current every day smoker Past Alcohol Use History: None Reported Past Drug Use History: None Reported - Past Family History Father Family Medical History: No Reported History General Exam - General Exam Comments Initial Comments: Patient mild distress secondary to left flank pain. Does not appear to be ill or toxic however. Limitations: no limitations General appearance: alert, in distress, obese Head exam: Present: atraumatic, normocephalic, normal inspection Eye exam: Present: normal appearance, PERRL, EOMI. Absent: scleral icterus, conjunctival injection, periorbital swelling ENT exam: Present: normal exam, mucous membranes moist Neck exam: Present: normal inspection, full ROM. Absent: tenderness, meningismus, lymphadenopathy Respiratory exam: Present: normal lung sounds bilaterally. Absent: respiratory distress, wheezes, rales, rhonchi, stridor Cardiovascular Exam: Present: regular rate, normal rhythm, normal heart sounds. Absent: systolic murmur, diastolic murmur, rubs, gallop, clicks GI/Abdominal exam: Present: soft, normal bowel sounds, other (Patient really has no specific abdominal tenderness to palpation.). Absent: distended, tenderness, guarding, rebound, rigid Extremities exam: Present: normal inspection, full ROM, normal capillary refill. Absent: tenderness, pedal edema, joint swelling, calf tenderness Back exam: Present: normal inspection, full ROM, CVA tenderness (L). Absent: tenderness, CVA tenderness (R) Neurological exam: Present: alert, oriented X3, CN II-XII intact Psychiatric exam: Present: normal affect, normal mood Skin exam: Present: warm, dry, intact, normal color. Absent: rash Course Vital Signs 07/08/21 01:41 Temperature 97.6 F Pulse Rate 85 Respiratory 22 Rate Blood Pressure 140/90 O2 Sat by Pulse 100 Oximetry - Reevaluation(s) Reevaluation #1: 07/08/21 02:45 Medical record is reviewed Symptoms are improved --patient shows evidence of a urinary tract infection. Awaiting CT results. Patient is informed of results and questions answered Patient in no distress Reevaluation #2: 07/08/21 03:01 Medical record is reviewed Symptoms are improved--patient states she is feeling much better. Patient able to hold down fluids here in the ER. Computed tomography scan shows intrarenal stones but no obstructing stone. Patient does show evidence of urinary tract infection with possible early pyelonephritis given the patient's symptom [place]. Patient is informed of results and questions answered Patient in no distress Medical Decision Making - Medical Decision Making Patient presents symptomology most consistent with ureterolithiasis. We'll order a noncontrast CT of abdomen and pelvis. Ketorolac and Zofran given initially. Patient previously had a tubal ligation. Patient previously needed lithotripsy for her last kidney stone in March. Urologist is Dr. Parish Patient shows urinary tract infection with likely early pyelonephritis. Holding down fluids here in the ER. No vomiting. Pain is controlled. No evidence of obstructing ureteral stone. I did give patient the option of admission. However the patient is wanting to be treated as an outpatient. Will give 1 dose of IV antibiotics, ceftriaxone, here in the ER. Patient be discharged on Omnicef. Patient told to follow-up with her urologist on Friday morning. The case was discussed in detail with ED attending physician. Presentation, findings, treatment plan discussed in detail. Discussed all findings with the patient. Discussed treatment plan. All questions answered. Patient was told to return to the ER for any signs or symptoms worsen. Told to return immediately if any other problems arise. All questions answered. Treatment plan discussed. Patient in agreement Every effort has been made to ensure accuracy of this dictation. However, due to the limitations of electronic medical records and dictation devices, errors in charting still occur. - Lab Data Result diagrams: 07/08/21 02:22 07/08/21 02:22 Lab Results 07/08/21 07/08/21 07/08/21 Range/Units 01:50 02:22 02:22 WBC 11.0 H (3.8-10.6) k/uL RBC 4.69 (3.80-5.40) m/uL Hgb 14.3 (11.4-16.0) gm/dL Hct 43.4 (34.0-46.0) % MCV 92.5 (80.0-100.0) fL MCH 30.5 (25.0-35.0) pg MCHC 32.9 (31.0-37.0) g/dL RDW 13.3 (11.5-15.5) % Plt Count 358 (150-450) k/uL MPV 7.0 Neutrophils % 70 % Lymphocytes % 21 % Monocytes % 5 % Eosinophils % 2 % Basophils % 1 % Neutrophils # 7.8 H (1.3-7.7) k/uL Lymphocytes # 2.3 (1.0-4.8) k/uL Monocytes # 0.5 (0-1.0) k/uL Eosinophils # 0.2 (0-0.7) k/uL Basophils # 0.1 (0-0.2) k/uL Sodium 136 L (137-145) mmol/L Potassium 3.5 (3.5-5.1) mmol/L Chloride 102 (98-107) mmol/L Carbon Dioxide 28 (22-30) mmol/L Anion Gap 6 mmol/L BUN 10 (7-17) mg/dL Creatinine 0.88 (0.52-1.04) mg/dL Est GFR (CKD-EPI)AfAm >90 (>60 ml/min/1.73 sqM) Est GFR (CKD-EPI)NonAf 86 (>60 ml/min/1.73 sqM) Glucose 110 H (74-99) mg/dL Calcium 9.3 (8.4-10.2) mg/dL Total Bilirubin 0.3 (0.2-1.3) mg/dL AST 19 (14-36) U/L ALT 14 (4-34) U/L Alkaline Phosphatase 103 (38-126) U/L Total Protein 7.0 (6.3-8.2) g/dL Albumin 3.8 (3.5-5.0) g/dL Urine Color Light Yellow Urine Appearance Cloudy H (Clear) Urine pH 6.5 (5.0-8.0) Ur Specific [place] 1.006 (1.001-1.035) Urine Protein Negative (Negative) Urine Glucose (UA) Negative (Negative) Urine Ketones Negative (Negative) Urine Blood Moderate H (Negative) Urine Nitrite Positive H (Negative) Urine Bilirubin Negative (Negative) Urine Urobilinogen <2.0 (<2.0) mg/dL Ur Leukocyte Esterase Large H (Negative) Urine RBC 15 H (0-5) /hpf Urine WBC >182 H (0-5) /hpf Urine WBC Clumps Few H (None) /hpf Ur Squamous Epith Cells 2 (0-4) /hpf Urine Bacteria Moderate H (None) /hpf Urine Mucus Rare H (None) /hpf Disposition Clinical Impression: Urinary tract infection Disposition: HOME SELF-CARE Condition: Good Instructions (If sedation given, give patient instructions): Urinary Tract Infe ction in Women (ED) Additional Instructions: Call the urologist on Friday morning for follow-up appointment. Take the antibiotics as directed. Drink plenty of fluids. Follow-up with your regular physician as directed. Return to the ER immediately if any symptoms worsen, new symptoms arise, or any other problems develop. Prescriptions: Cefdinir 300 mg PO Q12HR #20 cap Ibuprofen [Motrin] 600 mg PO Q8HR PRN #30 tab PRN Reason: Pain HYDROcodone/APAP 5-325MG [[place] 5-325] 1 tab PO Q6HR PRN 3 Days #12 tab PRN Reason: Pain Ondansetron [Zofran ODT] 4 mg PO Q8HR #20 tab Is patient prescribed a controlled substance at d/c from ED?: No Referrals: Pipe Parish MD [STAFF PHYSICIAN] - 1-2 days Time of Disposition: 03:07
[2021-07-08 02:10] LABS: Appearance,Urine Cloudy (Clear); Bacteria,Urine Moderate /hpf; Bilirubin,Urine Negative (Negative); Blood,Urine Moderate (Negative); Color,Urine Light Yellow; Glucose,Urine (UA) Negative (Negative); Ketones,Urine Negative (Negative); Leukocyte Esterase,Urine Large (Negative); Mucus,Urine Rare /hpf; Nitrite,Urine Positive (Negative); PH, Urine 6.5 (5.0-8.0); Protein,Urine Negative (Negative); RBC,Urine 15 /hpf (0-5); Specific Gravity,Urine 1.006 (1.001-1.035); Squamous Epithelial Cell,Urine 2 /hpf (0-4); Urobilinogen,Urine <2.0 mg/dL (<2.0); WBC,Urine >182 /hpf (0-5)
[2021-07-08 02:27] LABS: Basophils # (A) 0.1 k/uL (0-0.2); Basophils % (A) 1 %; Eosinophils # (A) 0.2 k/uL (0-0.7); Eosinophils % (A) 2 %; HCT 43.4 % (34.0-46.0); HGB 14.3 gm/dL (11.4-16.0); Lymphocytes # (A) 2.3 k/uL (1.0-4.8); Lymphocytes % (A) 21 %; MCH 30.5 pg (25.0-35.0); MCHC 32.9 g/dL (31.0-37.0); MCV 92.5 fL (80.0-100.0); Monocytes # (A) 0.5 k/uL (0-1.0); Monocytes % (A) 5 %; Neutrophils # (A) 7.8 k/uL (1.3-7.7); Neutrophils % (A) 70 %; Platelet Count 358 k/uL (150-450); RBC 4.69 m/uL (3.80-5.40); RDW 13.3 % (11.5-15.5)
[2021-07-08 02:36] LABS: ALT 14 U/L (4-34); AST 19 U/L (14-36); African American GFR (CKD) >90 (>60 ml/min/1.73 sqM); Albumin 3.8 g/dL (3.5-5.0); Alkaline Phosphatase 103 U/L (38-126); Anion Gap 6 mmol/L; Blood Urea Nitrogen 10 mg/dL (7-17); Calcium 9.3 mg/dL (8.4-10.2); Carbon Dioxide 28 mmol/L (22-30); Chloride 102 mmol/L (98-107); Glucose 110 mg/dL (74-99); Non-African American GFR(CKD) 86 (>60 ml/min/1.73 sqM); Potassium 3.5 mmol/L (3.5-5.1); Sodium 136 mmol/L (137-145); Total Bilirubin 0.3 mg/dL (0.2-1.3)
--- NOTE | 2021-07-08 02:52 | CT ---
EXAMINATION TYPE: CT abdomen pelvis wo con DATE OF EXAM: 07/08/2021 COMPARISON: 04/02/2021 HISTORY: left flank pain CT DLP: 1028.2 mGycm Automated exposure control for dose reduction was used. Images obtained from the diaphragm to the floor the pelvis with no contrast. Lung bases show no pleural effusion or pneumothorax. Heart size is normal. There is no pericardial ef fusion. Liver spleen and stomach pancreas appear intact. There are clips from cholecystectomy. The bile ducts are nondilated. There is no adrenal mass. There are numerous bilateral renal calculi measuring up to 6 mm. No hydrone phrosis. Ureters are not dilated. There is no retroperitoneal adenopathy. The bladder distends smooth ly. Uterus is anteverted. No free fluid in the pelvis. No inguinal hernia. There is no evidence of pelvic mass. Lumbar vertebrae have normal alignment. No compression fracture. Bony pelvis is intact. The hip joints are intact. There are some multiple sacral cysts noted. Append ix is posterior and appears normal. There is no mesenteric edema. No ascites or free air. No bowel obstruction IMPRESSION: No acute abnormality in the abdomen and pelvis. Numerous nonobstructing bilateral renal calculi. Norm al appendix. There is clearing of the right-sided hydronephrosis compared to old exam.
[2021-07-08 04:07] VITALS: BP 126/56; PULSE 84; RESP 18; TEMP 98
== END 2021-07-08 03:40 | disposition home or self-care (01) ==
LOC: EC 01:38
DX: N39.0 Urinary tract infection, site not specified (principal); E66.9 Obesity, unspecified; F17.200 Nicotine dependence, unspecified, uncomplicated; Z68.23 Body mass index [BMI] 23.0-23.9, adult
CPT/HCPCS: 36415; 80053; 85025; 81001; 87086; 74176; 99284; 96365; 96375 ×2; 96361; J2405; J0696; J1885; 87077; 87186; 99285

== ENCOUNTER 2021-11-20 04:40 | Inpatient (IN) | payer OTHER ==
[2021-11-20 04:50] VITALS: TEMP 98.4
[2021-11-20] MEDS ORDERED: KETOROLAC 15 MG/ML 1 ML VIAL IVP STA (04:56)
[2021-11-20] MEDS ORDERED: SODIUM CHLORIDE 0.9% 1,000 ML IV STA (04:56)
[2021-11-20] MEDS ORDERED: MORPHINE SULFATE 4 MG/ML SYRINGE IV STA (04:56)
--- NOTE | 2021-11-20 04:56 | ED ---
Abdominal Pain HPI - General Chief Complaint: Urogenital Stated Complaint: abd pain Time Seen by Provider: 11/20/21 04:55 Source: patient Mode of arrival: ambulatory - Related Data Previous Rx's Medication Instructions Recorded Sulfamethox-Tmp 800-160Mg [Bactrim 1 each PO Q12HR #6 tab 04/16/21 Ds] Cefdinir 300 mg PO Q12HR #20 cap 07/08/21 HYDROcodone/APAP 5-325MG [[place] 1 tab PO Q6HR PRN 3 Days #12 tab 07/08/21 5-325] Ibuprofen [Motrin] 600 mg PO Q8HR PRN #30 tab 07/08/21 Ondansetron [Zofran ODT] 4 mg PO Q8HR #20 tab 07/08/21 Allergies Allergy/AdvReac Type Severity Reaction Status Date / Time Penicillins Allergy Rash/Hives Verified 11/20/21 04:49 Review of Systems ROS Statement: Those systems with pertinent positive or pertinent negative responses have been documented in the HPI. ROS Other: All systems not noted in ROS Statement are negative. Past Medical History Past Medical History: Neurologic Disorder Additional Past Medical History / Comment(s): Hx of cleft lip and palate. Hx of Guillain-[place] Syndrome. Hx kidney stones. History of Any Multi-Drug Resistant Organisms: None Reported Past Surgical History: Section, Cholecystectomy, Tubal Ligation Additional Past Surgical History / Comment(s): Cystoscopy, surgery for kidney stones. Past Anesthesia/Blood Transfusion Reactions: No Reported Reaction Past Psychological History: No Psychological Hx Reported Smoking Status: Current every day smoker Past Alcohol Use History: None Reported Past Drug Use History: None Reported - Past Family History Father Family Medical History: No Reported History Course Vital Signs 11/20/21 04:48 Temperature 98.4 F Pulse Rate 99 Respiratory 19 Rate Blood Pressure 155/90 O2 Sat by Pulse 100 Oximetry Medical Decision Making - Lab Data Result diagrams: 11/20/21 05:21 11/20/21 05:21 Lab Results 11/20/21 11/20/21 11/20/21 Range/Units 05:21 05:21 05:21 WBC 10.7 H (3.8-10.6) k/uL RBC 5.19 (3.80-5.40) m/uL Hgb 15.1 (11.4-16.0) gm/dL Hct 48.1 H (34.0-46.0) % MCV 92.7 (80.0-100.0) fL MCH 29.1 (25.0-35.0) pg MCHC 31.4 (31.0-37.0) g/dL RDW 14.2 (11.5-15.5) % Plt Count 454 H (150-450) k/uL MPV 7.9 Neutrophils % 82 % Lymphocytes % 15 % Monocytes % 2 % Eosinophils % 1 % Basophils % 1 % Neutrophils # 8.8 H (1.3-7.7) k/uL Lymphocytes # 1.6 (1.0-4.8) k/uL Monocytes # 0.2 (0-1.0) k/uL Eosinophils # 0.1 (0-0.7) k/uL Basophils # 0.1 (0-0.2) k/uL Sodium 138 (137-145) mmol/L Potassium 5.0 (3.5-5.1) mmol/L Chloride 103 (98-107) mmol/L Carbon Dioxide 21 L (22-30) mmol/L Anion Gap 14 mmol/L BUN 11 (7-17) mg/dL Creatinine 0.97 (0.52-1.04) mg/dL Est GFR (CKD-EPI)AfAm 87 (>60 ml/min/1.73 sqM) Est GFR (CKD-EPI)NonAf 76 (>60 ml/min/1.73 sqM) Glucose 95 (74-99) mg/dL Calcium 9.3 (8.4-10.2) mg/dL Total Bilirubin 0.7 (0.2-1.3) mg/dL AST 40 H (14-36) U/L ALT 16 (4-34) U/L Alkaline Phosphatase 103 (38-126) U/L Total Protein 8.4 H (6.3-8.2) g/dL Albumin 4.4 (3.5-5.0) g/dL Amylase 88 (30-110) U/L Lipase 79 (23-300) U/L Urine Color Colorless Urine Appearance Cloudy H (Clear) Urine pH 7.0 (5.0-8.0) Ur Specific [place] 1.005 (1.001-1.035) Urine Protein Trace H (Negative) Urine Glucose (UA) Negative (Negative) Urine Ketones Negative (Negative) Urine Blood Trace H (Negative) Urine Nitrite Negative (Negative) Urine Bilirubin Negative (Negative) Urine Urobilinogen <2.0 (<2.0) mg/dL Ur Leukocyte Esterase Large H (Negative) Urine RBC 4 (0-5) /hpf Urine WBC 89 H (0-5) /hpf Ur Squamous Epith Cells 2 (0-4) /hpf Urine Bacteria Few H (None) /hpf Urine Mucus Rare H (None) /hpf Disposition Clinical Impression: Urinary tract infection, Left renal stone, Pyelonephritis Disposition: ADMITTED IP TO THIS [facility] Condition: Serious Is patient prescribed a controlled substance at d/c from ED?: No Referrals: None,Stated [Primary Care Provider] - 1-2 days
[2021-11-20 05:39] LABS: Appearance,Urine Cloudy (Clear); Bacteria,Urine Few /hpf; Bilirubin,Urine Negative (Negative); Blood,Urine Trace (Negative); Color,Urine Colorless; Glucose,Urine (UA) Negative (Negative); Ketones,Urine Negative (Negative); Leukocyte Esterase,Urine Large (Negative); Mucus,Urine Rare /hpf; Nitrite,Urine Negative (Negative); Protein,Urine Trace (Negative); RBC,Urine 4 /hpf (0-5); Specific Gravity,Urine 1.005 (1.001-1.035); Squamous Epithelial Cell,Urine 2 /hpf (0-4); Urobilinogen,Urine <2.0 mg/dL (<2.0); WBC,Urine 89 /hpf (0-5)
[2021-11-20 05:40] LABS: Basophils # (A) 0.1 k/uL (0-0.2); Basophils % (A) 1 %; Eosinophils # (A) 0.1 k/uL (0-0.7); Eosinophils % (A) 1 %; HCT 48.1 % (34.0-46.0); HGB 15.1 gm/dL (11.4-16.0); Lymphocytes # (A) 1.6 k/uL (1.0-4.8); Lymphocytes % (A) 15 %; MCH 29.1 pg (25.0-35.0); MCHC 31.4 g/dL (31.0-37.0); MCV 92.7 fL (80.0-100.0); Mean Platelet Volume 7.9; Monocytes # (A) 0.2 k/uL (0-1.0); Monocytes % (A) 2 %; Neutrophils # (A) 8.8 k/uL (1.3-7.7); Neutrophils % (A) 82 %; Platelet Count 454 k/uL (150-450); RBC 5.19 m/uL (3.80-5.40); RDW 14.2 % (11.5-15.5); WBC 10.7 k/uL (3.8-10.6)
[2021-11-20 05:48] LABS: Albumin 4.4 g/dL (3.5-5.0); Calcium 9.3 mg/dL (8.4-10.2); Total Bilirubin 0.7 mg/dL (0.2-1.3); Total Protein 8.4 g/dL (6.3-8.2)
--- NOTE | 2021-11-20 06:34 | CT ---
EXAMINATION TYPE: CT abdomen pelvis wo con DATE OF EXAM: 11/20/2021 COMPARISON: 07/08/2021 HISTORY: Left side abdominal pain. Hx of kidney stones. CT DLP: 916.9 mGycm Automated exposure control for dose reduction was used. Images obtained from the diaphragm to the floor the pelvis with no contrast. The lung bases show no pulmonary consolidation or pleural fluid. Heart size is normal. No pericardial effusion. Liver spleen and stomach pancreas appear intact. There are clips from cholecystectomy. The bile ducts are not dilated. There is no adrenal mass. There is enlargement of the left kidney with perinephric stranding. There i s multiple fragmented calculi in the left renal pelvis and calyces. There are a few air bubbles. Ther e are numerous calculi throughout the calyces of the right kidney. No right-sided hydronephrosis. The left ureter is not dilated. There is some air in the urinary bladder. Bladder distends smoothly. [place] kevon is anteverted. No pelvic mass. No free fluid in the pelvis. No inguinal hernia. Appendix is poste rior and appears normal. There is no mesenteric edema. No ascites or free air. No bowel obstruction. IMPRESSION: There is mild left-sided hydronephrosis and diffuse swelling of the left kidney. Multiple variable si zed calculi in the left kidney with air bubbles in the renal pelvis that could relate to gas forming infection and pyelonephritis. This appears new compared to the old exam. Multiple nonobstructing right renal calculi without change. Normal appendix. There is gas in the urinary bladder that could be cystitis and gas bacterial infection.
[2021-11-20] MEDS ORDERED: MORPHINE SULFATE 4 MG/ML SYRINGE IV PRN (06:36)
[2021-11-20] MEDS ORDERED: ONDANSETRON 4 MG/2 ML VIAL IVP PRN (06:36)
[2021-11-20] MEDS ORDERED: NALOXONE 0.4 MG/ML 1 ML VIAL IV PRN (06:36)
[2021-11-20] MEDS ORDERED: ONDANSETRON 4 MG/2 ML VIAL IVP STA (06:42)
[2021-11-20] MEDS: SODIUM CHLORIDE 0.9% 1,000 ML IV SCH ×2 (06:52→13:34)
[2021-11-20] MEDS ORDERED: ACETAMINOPHEN TAB 325 MG TAB PO PRN (09:20)
[2021-11-20] MEDS ORDERED: HYDROcodone/APAP 5-325MG 1 EACH TAB PO PRN (09:20)
[2021-11-20] MEDS ORDERED: MELATONIN 3 MG TABLET PO PRN (09:20)
--- NOTE | 2021-11-20 09:20 | P.HPIM ---
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 In the ER she underwent an extensive evaluation. Initial vital signs showed mild hypertension on arrival with systolic blood pressure 155. Initial laboratory analysis showed white blood cell count of 10.7 and platelets of 454. Urinalysis demonstrated 89 weight blood cells with large leukocyte esterase, nitrite negative, trace blood. She underwent a CT abdomen and pelvis which showed mild left-sided hydronephrosis with diffuse swelling of the left kidney and multiple variable sized calculi in the left kidney with air bubbles in the renal pelvis possibly relating to gas forming infection and pyelonephritis. Multiple nonobstructing renal calculi without change. Gas within the urinary bladder. In the ER she was given a dose of Rocephin and arrangements are made for adm ission. Patient seen and examined at bedside. Starting having left kidney pain this morning at 3 am. Pain is constant on the left side and not radiating. No change in pain with urination. Started having nuasea and vomiting after arriving to the emergency department. No difficulty urinating over the last coupe of days. No fevers or chills at home. Eating and drinking well at home. States that she was seen in the emergency department in [place] 2 weeks ago for similar complaints and was told that she had a UTI. She had a CT done there and was started on ABX. She does not recall the name of the ER which she was seen in, but believes that Dr. Gutiérrez office has the records. Typical urologist is Dr. Parish, last seen in Mar 2021. Pertinent positives and negatives as discussed in HPI, a complete review of systems was performed and all other systems are negative. Vital signs reviewed General: nontoxic, no distress, appears at stated age Derm: warm, dry Head: atraumatic, normocephalic, symmetric Eyes: EOMI, no lid lag, anicteric sclera, pupils equal round reactive to light ENT: Nose and ears atraumatic, no thrush, no pharyngeal erythema Neck: No thyromegaly, no cervical lymphadenopathy, trachea midline, supple Mouth: no lip lesion, mucus membranes moist Cardiovascular: S1S2 reg, no murmur, positive posterior tibial pulse bilateral, no edema, capillary refill less than 2 seconds Lungs: clear to auscultation bilateral, no rhonchi, no rales, no wheeze, no accessory muscle use Abdominal: soft, nontender to palpation, no guarding, no appreciable organomegaly, normal bowel sounds, + CVA pain on the left Ext: no gross muscle atrophy, muscle strength grossly intact all 4 extremities, no contractures Neuro: CN II-XII grossly intact, light touch intact all 4 extremities, finger to nose within normal limits, Psych: Alert, oriented, appropriate affect Assessment/Plan: Pyelonephritis, concerns for gas producing organisms B/L Nephrolithaisis mild Left [place] - has been give rocephin, allergy to PCN - consult urology - D/W Dr. Pichardo will continue to monitor clinically as very mild hydro and stable vital signs. - IVF - repeat labs this afternoon - pain control Tobacco abuse - cessation - nicotine replacement The patient is admitted with an anticipated less than 2 midnight stay for evaluation of UTI and nephrolithiasis DVT prophylaxis: SCDs Discussed with: Patient Anticipated discharge date: in am if stable Anticipated discharge place: home A total of 65 minutes was spent on the care of this complex patient more than 50% of the time was spent in counseling and care coordination. Past Medical History Past Medical History: Neurologic Disorder Additional Past Medical History / Comment(s): Hx of cleft lip and palate. Hx of Guillain-[place] Syndrome. Hx kidney stones. History of Any Multi-Drug Resistant Organisms: None Reported Past Surgical History: Section, Cholecystectomy, Tubal Ligation Additional Past Surgical History / Comment(s): Cystoscopy, surgery for kidney stones. Past Anesthesia/Blood Transfusion Reactions: No Reported Reaction Past Psychological History: No Psychological Hx Reported Smoking Status: Current every day smoker (1/2 PPD) Past Alcohol Use History: Occasional Past Drug Use History: None Reported - Past Family History Father Family Medical History: No Reported History Mother Additional Family Medical History / Comment(s): Kidney stones Medications and Allergies Home Medications Medication Instructions Recorded Confirmed Type No Known Home Medications 11/20/21 11/20/21 History Allergies Allergy/AdvReac Type Severity Reaction Status Date / Time Penicillins Allergy Rash/Hives Verified 11/20/21 07:11 Physical Exam Osteopathic Statement: *. No significant issues noted on an osteopathic structural exam other than those noted in the History and Physical/Consult. Vitals: Vital Signs Temp Pulse Resp BP Pulse Ox 11/20/21 04:48 98.4 F 99 19 155/90 100 Intake and Output 11/19/21 11/20/21 11/20/21 22:59 06:59 14:59 Other: Weight 95.254 kg Results CBC & Chem 7: 11/20/21 05:21 11/20/21 05:21 Labs: Abnormal Lab Results - Last 24 Hours (Table) 11/20/21 11/20/21 11/20/21 Range/Units 05:21 05:21 05:21 WBC 10.7 H (3.8-10.6) k/uL Hct 48.1 H (34.0-46.0) % Plt Count 454 H (150-450) k/uL Neutrophils # 8.8 H (1.3-7.7) k/uL Carbon Dioxide 21 L (22-30) mmol/L AST 40 H (14-36) U/L Total Protein 8.4 H (6.3-8.2) g/dL Urine Appearance Cloudy H (Clear) Urine Protein Trace H (Negative) Urine Blood Trace H (Negative) Ur Leukocyte Esterase Large H (Negative) Urine WBC 89 H (0-5) /hpf Urine Bacteria Few H (None) /hpf Urine Mucus Rare H (None) /hpf
--- NOTE | 2021-11-20 12:40 | P.GSCN ---
History of Present Illness Consult date: 11/20/21 History of present illness: this is a 36-year-old female history of recurrent kidney stones, presented to the ER with left-sided flank pain, associate with nausea. Denies any gross hematuria, dysuria, fevers or chills. Does have history of recurrent kidney stones and follows up with Dr. Parish for her stone disease. has required ureteroscopy, laser in the past. On presentation patient was hemodynamically stable, she is afebrile white count was 10.9. Underwent a CT abdomen and pelvis that showed evidence of minimal hydronephrosis with air in the bladder and in th e collecting system. Review of Systems - Constitutional Denies fever, Denies weight loss - EENT Ears, nose, mouth and throat: Denies dysphagia - Cardiovascular Denies chest pain, Denies shortness of breath - Respiratory Denies cough, Denies 7 - Gastrointestinal Reports abdominal pain, Reports nausea - Genitourinary Genitourinary: Reports flank pain, Denies dysuria - Integumentary Denies rash, Denies unusual bruising - Neurological Denies headaches, Denies syncope Past Medical History Past Medical History: Neurologic Disorder Additional Past Medical History / Comment(s): Hx of cleft lip and palate. Hx of Guillain-[place] Syndrome. Hx kidney stones. History of Any Multi-Drug Resistant Organisms: None Reported Past Surgical History: Section, Cholecystectomy, Tubal Ligation Additional Past Surgical History / Comment(s): Cystoscopy, surgery for kidney stones. Past Anesthesia/Blood Transfusion Reactions: No Reported Reaction Past Psychological History: No Psychological Hx Reported Smoking Status: Current every day smoker (1/2 PPD) Past Alcohol Use History: Occasional Past Drug Use History: None Reported - Past Family History Father Family Medical History: No Reported History Mother Additional Family Medical History / Comment(s): Kidney stones Medications and Allergies Home Medications Medication Instructions Recorded Confirmed Type No Known Home Medications 11/20/21 11/20/21 History Allergies Allergy/AdvReac Type Severity Reaction Status Date / Time Penicillins Allergy Rash/Hives Verified 11/20/21 07:11 Surgical - Exam Vital Signs Temp Pulse Resp BP Pulse Ox 98.4 F 99 19 155/90 100 11/20/21 04:48 11/20/21 04:48 11/20/21 04:48 11/20/21 04:48 11/20/21 04:48 - General no distress, no pain - Eyes normal ocular movement - ENT normal nares, normal mucosa - Respiratory normal expansion, normal respiratory effort - Abdomen Abdomen: soft, non tender, no guarding, no rigid, no rebound - Psychiatric oriented to time, oriented to person, oriented to place Results - Labs 11/20/21 05:21 11/20/21 05:21 Abnormal Lab Results - Last 24 Hours (Table) 11/20/21 11/20/21 11/20/21 Range/Units 05:21 05:21 05:21 WBC 10.7 H (3.8-10.6) k/uL Hct 48.1 H (34.0-46.0) % Plt Count 454 H (150-450) k/uL Neutrophils # 8.8 H (1.3-7.7) k/uL Carbon Dioxide 21 L (22-30) mmol/L AST 40 H (14-36) U/L Total Protein 8.4 H (6.3-8.2) g/dL Urine Appearance Cloudy H (Clear) Urine Protein Trace H (Negative) Urine Blood Trace H (Negative) Ur Leukocyte Esterase Large H (Negative) Urine WBC 89 H (0-5) /hpf Urine Bacteria Few H (None) /hpf Urine Mucus Rare H (None) /hpf Microbiology - Last 24 Hours (Table) 11/20/21 05:21 Urine Culture - Preliminary Urine,Voided Diabetes panel 11/20/21 Range/Units 05:21 Sodium 138 (137-145) mmol/L Potassium 5.0 (3.5-5.1) mmol/L Chloride 103 (98-107) mmol/L Carbon Dioxide 21 L (22-30) mmol/L BUN 11 (7-17) mg/dL Creatinine 0.97 (0.52-1.04) mg/dL Glucose 95 (74-99) mg/dL Calcium 9.3 (8.4-10.2) mg/dL AST 40 H (14-36) U/L ALT 16 (4-34) U/L Alkaline Phosphatase 103 (38-126) U/L Total Protein 8.4 H (6.3-8.2) g/dL Albumin 4.4 (3.5-5.0) g/dL Calcium panel 11/20/21 Range/Units 05:21 Calcium 9.3 (8.4-10.2) mg/dL Albumin 4.4 (3.5-5.0) g/dL Pituitary panel 11/20/21 Range/Units 05:21 Sodium 138 (137-145) mmol/L Potassium 5.0 (3.5-5.1) mmol/L Chloride 103 (98-107) mmol/L Carbon Dioxide 21 L (22-30) mmol/L BUN 11 (7-17) mg/dL Creatinine 0.97 (0.52-1.04) mg/dL Glucose 95 (74-99) mg/dL Calcium 9.3 (8.4-10.2) mg/dL Adrenal panel 11/20/21 Range/Units 05:21 Sodium 138 (137-145) mmol/L Potassium 5.0 (3.5-5.1) mmol/L Chloride 103 (98-107) mmol/L Carbon Dioxide 21 L (22-30) mmol/L BUN 11 (7-17) mg/dL Creatinine 0.97 (0.52-1.04) mg/dL Glucose 95 (74-99) mg/dL Calcium 9.3 (8.4-10.2) mg/dL Total Bilirubin 0.7 (0.2-1.3) mg/dL AST 40 H (14-36) U/L ALT 16 (4-34) U/L Alkaline Phosphatase 103 (38-126) U/L Total Protein 8.4 H (6.3-8.2) g/dL Albumin 4.4 (3.5-5.0) g/dL Assessment and Plan Assessment: this is a 36-year-old female presents to the hospital with left flank pain, underwent CT which showed evidence of mild dilation of the collecting system, with air in the collecting system and the bladder. Patient hemodynamically stable, slight leukocytosis, pain resolved now. Clinically it's not consistent with emphysematous pyelonephritis, and minimal dilation on CT. At this time we will continue with IV antibiotics, will reassess tomorrow. If the patient clinical status worsens then we'll proceed with stent insertion but otherwise will continue with antibiotics at this time
[2021-11-20 14:00] LABS: HCT 38.4 % (34.0-46.0); HGB 12.2 gm/dL (11.4-16.0); MCH 29.3 pg (25.0-35.0); MCHC 31.7 g/dL (31.0-37.0); MCV 92.4 fL (80.0-100.0); Platelet Count 349 k/uL (150-450); RBC 4.15 m/uL (3.80-5.40); RDW 14.3 % (11.5-15.5); WBC 16.1 k/uL (3.8-10.6)
[2021-11-20 14:11] LABS: African American GFR (CKD) 87 (>60 ml/min/1.73 sqM); Anion Gap 6 mmol/L; Blood Urea Nitrogen 9 mg/dL (7-17); Calcium 8.1 mg/dL (8.4-10.2); Carbon Dioxide 26 mmol/L (22-30); Chloride 107 mmol/L (98-107); Glucose 88 mg/dL (74-99); Non-African American GFR(CKD) 76 (>60 ml/min/1.73 sqM); Potassium 4.1 mmol/L (3.5-5.1); Sodium 139 mmol/L (137-145)
[2021-11-20 16:15] VITALS: PULSE 68
[2021-11-20 18:25] VITALS: BP 113/67; RESP 19
--- NOTE | 2021-11-21 17:43 | P.DS ---
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 In the ER she underwent an extensive evaluation. Initial vital signs showed mild hypertension on arrival with systolic blood pressure 155. Initial laboratory analysis showed white blood cell count of 10.7 and platelets of 454. Urinalysis demonstrated 89 weight blood cells with large leukocyte esterase, nitrite negative, trace blood. She underwent a CT abdomen and pelvis which showed mild left-sided hydronephrosis with diffuse swelling of the left kidney and multiple variable sized calculi in the left kidney with air bubbles in the renal pelvis possibly relating to gas forming infection and pyelonephritis. Multiple nonobstructing renal calculi without change. Gas within the urinary bladder. In the ER she was given a dose of Rocephin and arrangements are made for admission. Patient left AMA overnight on 11/20 at 21:29 prior to my notification. Patient Condition at Discharge: Stable Plan - Discharge Summary Discharge Rx Participant: No New Discharge Prescriptions: No Action No Known Home Medications Discharge Medication List No Known Home Medications 11/20/21 [History] Follow up Appointment(s)/Referral(s): None,Stated [Primary Care Provider] - 1-2 days Discharge Disposition: Left Against Medical Advice
== END 2021-11-20 21:35 | disposition left against medical advice (07) | DRG 690 ==
LOC: EC 04:40 → 5NMEDONC 06:36
PROVIDERS: ADMIT Internal Medicine; ATTEND Internal Medicine
DX: N13.6 Pyonephrosis (principal); I10 Essential (primary) hypertension; F17.210 Nicotine dependence, cigarettes, uncomplicated; Z71.6 Tobacco abuse counseling; Z28.310 Unvaccinated for COVID-19; Z87.442 Personal history of urinary calculi; Z87.730 Personal history of (corrected) cleft lip and palate; Z88.0 Allergy status to penicillin; Z98.890 Other specified postprocedural states; Z86.69 Personal history of other diseases of the nervous system and sense organs; Z84.1 Family history of disorders of kidney and ureter
CPT/HCPCS: 36415; 74176; 80048; 80053; 81001; 82150; 83690; 85025; 85027; 87077; 87086; 87186; 96361; 96365; 96367; 96375; 99285

== ENCOUNTER 2021-12-14 04:13 | Emergency (ER) | payer OTHER ==
[2021-12-14 04:28] VITALS: BP 126/89; PULSE 94; RESP 17; TEMP 98.3
[2021-12-14] MEDS ORDERED: SODIUM CHLORIDE 0.9% 1,000 ML IV STA (04:31)
[2021-12-14] MEDS ORDERED: MORPHINE SULFATE 4 MG/ML SYRINGE IVP STA (04:40)
[2021-12-14] MEDS ORDERED: ONDANSETRON 4 MG/2 ML VIAL IVP STA (04:40)
[2021-12-14] MEDS ORDERED: KETOROLAC 15 MG/ML 1 ML VIAL IVP STA (04:40)
--- NOTE | 2021-12-14 05:24 | XR ---
EXAMINATION TYPE: XR KUB DATE OF EXAM: 12/14/2021 COMPARISON: 04/11/2021 HISTORY: Kidney stone TECHNIQUE: 2 views of right FINDINGS: There is no sign of intestinal obstruction or pneumoperitoneum. Fecal pattern is normal. No evidence of a mass. There are clips from cholecystectomy. There is 6 mm calcification over the left kidney. This probably other smaller left renal calculi. Lung bases are clear. IMPRESSION: Left renal calculus without change. Nonacute abdomen. There is removal of the right-sided ureteral stent compared to old exam.
[2021-12-14 05:27] LABS: Basophils # (A) 0.1 k/uL (0-0.2); Basophils % (A) 1 %; Eosinophils # (A) 0.2 k/uL (0-0.7); Eosinophils % (A) 2 %; HCT 44.6 % (34.0-46.0); HGB 14.7 gm/dL (11.4-16.0); Lymphocytes # (A) 1.7 k/uL (1.0-4.8); Lymphocytes % (A) 11 %; MCHC 32.9 g/dL (31.0-37.0); MCV 91.1 fL (80.0-100.0); Mean Platelet Volume 7.3; Monocytes # (A) 0.4 k/uL (0-1.0); Monocytes % (A) 3 %; Neutrophils # (A) 12.7 k/uL (1.3-7.7); Neutrophils % (A) 84 %; Platelet Count 267 k/uL (150-450); RBC 4.89 m/uL (3.80-5.40); WBC 15.1 k/uL (3.8-10.6)
[2021-12-14 05:36] LABS: Albumin 4.4 g/dL (3.5-5.0); Calcium 9.3 mg/dL (8.4-10.2); Potassium 3.2 mmol/L (3.5-5.1); Total Bilirubin 0.4 mg/dL (0.2-1.3); Total Protein 7.8 g/dL (6.3-8.2)
--- NOTE | 2021-12-14 05:48 | ED ---
General Adult HPI - General Chief complaint: Urogenital Stated complaint: RT flank pain Time Seen by Provider: 12/14/21 04:33 Source: patient Mode of arrival: ambulatory - History of Present Illness Initial comments: Patient is a 36-year-old female with past medical history remarkable for bilateral kidney stones, pyelonephritis complaining of right flank pain. States it started suddenly at 3 AM this morning. Is concerned she may have an infection or kidney stone present. Does endorse nausea as well as one episode of nonbilious vomiting emesis. Denies any dysuria or hematuria. Denies any diarrhea. Denies any chest pain, shortness of breath. States the pain is located in her mid back. Describes it as sharp. Denies radiation. No other acute complaints at this time. Presents because she previously required admission for IV antibiotics. She is seeking antibiotics at this time. - Related Data Previous Rx's Medication Instructions Recorded Sulfamethox-Tmp 800-160Mg [Bactrim 1 tab PO Q12HR 7 Days #14 tab 12/14/21 DS 800-160 mg] Allergies Allergy/AdvReac Type Severity Reaction Status Date / Time Penicillins Allergy Rash/Hives Verified 12/14/21 04:27 Review of Systems ROS Statement: Those systems with pertinent positive or pertinent negative responses have been documented in the HPI. Review of Systems: CONST: Denies fever EYES: Denies blurry vision ENT: Denies nasal congestion C/V: Denies Chest pain RESP: Denies shortness of breath GI: Endorses right flank pain, back pain : Denies dysuria SKIN: Denies rash. MSK: Denies joint pain. NEURO: Denies headache ROS Other: All systems not noted in ROS Statement are negative. Past Medical History Past Medical History: Neurologic Disorder Additional Past Medical History / Comment(s): Hx of cleft lip and palate. Hx of Guillain-[place] Syndrome. Hx kidney stones. History of Any Multi-Drug Resistant Organisms: None Reported Past Surgical History: Section, Cholecystectomy, Tubal Ligation Additional Past Surgical History / Comment(s): Cystoscopy, surgery for kidney stones. Past Anesthesia/Blood Transfusion Reactions: No Reported Reaction Past Psychological History: No Psychological Hx Reported Smoking Status: Current every day smoker Past Alcohol Use History: None Reported Past Drug Use History: None Reported - Past Family History Father Family Medical History: No Reported History Mother Family Medical History: Cancer, Diabetes Mellitus Additional Family Medical History / Comment(s): Kidney stones, lung cancer. Mother is . General Exam - General Exam Comments Initial Comments: General: Appears in no acute distress. HEAD: Normal with no signs of head trauma. EYES: PERRLA, EOMI, conjunctiva normal, no discharge. ENT: Hearing grossly intact, normal oropharynx. Moist mucous membranes. RESPIRATORY: Clear breath sounds bilaterally. No wheezes, rales, or rhonchi. C/V: Regular rate and rhythm. S1 and S2 auscultated, no edema, peripheral pul ses 2+ and intact throughout ABD: Abd is soft, nontender, nondistended . No guarding. No rebound tenderness. No peritoneal signs. Right CVA tenderness to percussion. No left CVA tenderness to percussion. EXT: Normal range of motion, no obvious deformity SKIN: No rashes or lesions observed on exposed skin. NEURO: Alert and oriented 4. Course Vital Signs 12/14/21 04:25 Temperature 98.3 F Pulse Rate 94 Respiratory 17 Rate Blood Pressure 126/89 O2 Sat by Pulse 100 Oximetry Medical Decision Making - Medical Decision Making Based on the patient's presentation and physical exam, I'm concerned for UTI, pyelonephritis, or urinary stone. Patient's current symptoms. We will obtain an x-ray in addition to abdominal laboratory studies, urine studies. She'll be sent likely treatment with IV analgesia as well as fluids. Vital signs are within normal limits. She was in agreement with this plan. X-ray shows left-sided renal calculus without change, as well as removal of a right-sided ureteral stent. Laboratory studies are remarkable for leukocytosis of 15. She is mildly hypokalemic at 3.2 which was replenished. I discussed results with the patient. We did discuss obtaining a possible CT to further evaluate, however she does have a history of multiple CTs, and she has a known history of stones. She elected to defer CT imaging at this point. I was in agreement with this plan.There was a delay in obtaining urine studies. The patient was finally able to provide a urine sample, it was positive for nitrates and large amount of leukocyte esterase. Somewhat contaminated sample however patient is symptomatic therefore will be treated. She'll be given a dose of Rocephin prior to discharge. I'll provide with an antibiotic prescription for Bactrim. She was in agreement this plan. Vital signs are within normal limits. Pain has resolved. Is tolerating oral intake. Discussed I cannot definitively rule out a kidney stone but she does have a history on the right side. Does not appear to be causing renal issues. Concern for UTI versus possible pyelonephritis, however clinically appears well. Platelet is safer to be discharged home with close follow-up. Recommended strict return precautions. She was in agreement this plan. I will provide the patient with a prescription for Bactrim. I instructed the patient to follow up with their PCP in the next 1-3 days. . I explained that the patient should return to the emergency department if they experience any worsening symptoms. Strict return precautions were discussed with the patient. The patient expressed understanding of these instructions. I answered all questions that the patient had. The patient was discharged home in good condition with their prescriptions and follow up information. - Lab Data Result diagrams: 12/14/21 04:58 12/14/21 04:58 Lab Results 12/14/21 12/14/21 12/14/21 Range/Units 04:58 04:58 04:58 WBC 15.1 H (3.8-10.6) k/uL RBC 4.89 (3.80-5.40) m/uL Hgb 14.7 (11.4-16.0) gm/dL Hct 44.6 (34.0-46.0) % MCV 91.1 (80.0-100.0) fL MCH 30.0 (25.0-35.0) pg MCHC 32.9 (31.0-37.0) g/dL RDW 14.0 (11.5-15.5) % Plt Count 267 (150-450) k/uL MPV 7.3 Neutrophils % 84 % Lymphocytes % 11 % Monocytes % 3 % Eosinophils % 2 % Basophils % 1 % Neutrophils # 12.7 H (1.3-7.7) k/uL Lymphocytes # 1.7 (1.0-4.8) k/uL Monocytes # 0.4 (0-1.0) k/uL Eosinophils # 0.2 (0-0.7) k/uL Basophils # 0.1 (0-0.2) k/uL Sodium 141 (137-145) mmol/L Potassium 3.2 L (3.5-5.1) mmol/L Chloride 105 (98-107) mmol/L Carbon Dioxide 24 (22-30) mmol/L Anion Gap 12 mmol/L BUN 9 (7-17) mg/dL Creatinine 0.98 (0.52-1.04) mg/dL Est GFR (CKD-EPI)AfAm 86 (>60 ml/min/1.73 sqM) Est GFR (CKD-EPI)NonAf 74 (>60 ml/min/1.73 sqM) Glucose 101 H (74-99) mg/dL Plasma Lactic Acid Sung 1.0 (0.7-2.0) mmol/L Calcium 9.3 (8.4-10.2) mg/dL Total Bilirubin 0.4 (0.2-1.3) mg/dL AST 18 (14-36) U/L ALT 10 (4-34) U/L Alkaline Phosphatase 116 (38-126) U/L Total Protein 7.8 (6.3-8.2) g/dL Albumin 4.4 (3.5-5.0) g/dL Amylase 53 (30-110) U/L Lipase 39 (23-300) U/L Urine Color Urine Appearance (Clear) Urine pH (5.0-8.0) Ur Specific [place] (1.001-1.035) Urine Protein (Negative) Urine Glucose (UA) (Negative) Urine Ketones (Negative) Urine Blood (Negative) Urine Nitrite (Negative) Urine Bilirubin (Negative) Urine Urobilinogen (<2.0) mg/dL Ur Leukocyte Esterase (Negative) Urine RBC (0-5) /hpf Urine WBC (0-5) /hpf Urine WBC Clumps (None) /hpf Ur Squamous Epith Cells (0-4) /hpf Urine Bacteria (None) /hpf Urine Mucus (None) /hpf Urine HCG, Qual (Not Detectd) 12/14/21 12/14/21 Range/Units 05:55 05:55 WBC (3.8-10.6) k/uL RBC (3.80-5.40) m/uL Hgb (11.4-16.0) gm/dL Hct (34.0-46.0) % MCV (80.0-100.0) fL MCH (25.0-35.0) pg MCHC (31.0-37.0) g/dL RDW (11.5-15.5) % Plt Count (150-450) k/uL MPV Neutrophils % % Lymphocytes % % Monocytes % % Eosinophils % % Basophils % % Neutrophils # (1.3-7.7) k/uL Lymphocytes # (1.0-4.8) k/uL Monocytes # (0-1.0) k/uL Eosinophils # (0-0.7) k/uL Basophils # (0-0.2) k/uL Sodium (137-145) mmol/L Potassium (3.5-5.1) mmol/L Chloride (98-107) mmol/L Carbon Dioxide (22-30) mmol/L Anion Gap mmol/L BUN (7-17) mg/dL Creatinine (0.52-1.04) mg/dL Est GFR (CKD-EPI)AfAm (>60 ml/min/1.73 sqM) Est GFR (CKD-EPI)NonAf (>60 ml/min/1.73 sqM) Glucose (74-99) mg/dL Plasma Lactic Acid Sung (0.7-2.0) mmol/L Calcium (8.4-10.2) mg/dL Total Bilirubin (0.2-1.3) mg/dL AST (14-36) U/L ALT (4-34) U/L Alkaline Phosphatase (38-126) U/L Total Protein (6.3-8.2) g/dL Albumin (3.5-5.0) g/dL Amylase (30-110) U/L Lipase (23-300) U/L Urine Color Yellow Urine Appearance Cloudy H (Clear) Urine pH 6.5 (5.0-8.0) Ur Specific [place] 1.013 (1.001-1.035) Urine Protein 1+ H (Negative) Urine Glucose (UA) Negative (Negative) Urine Ketones Negative (Negative) Urine Blood Moderate H (Negative) Urine Nitrite Positive H (Negative) Urine Bilirubin Negative (Negative) Urine Urobilinogen <2.0 (<2.0) mg/dL Ur Leukocyte Esterase Large H (Negative) Urine RBC 45 H (0-5) /hpf Urine WBC >182 H (0-5) /hpf Urine WBC Clumps Many H (None) /hpf Ur Squamous Epith Cells 9 H (0-4) /hpf Urine Bacteria Many H (None) /hpf Urine Mucus Few H (None) /hpf Urine HCG, Qual Not Detected (Not Detectd) Disposition Clinical Impression: UTI (urinary tract infection) Disposition: HOME SELF-CARE Condition: Good Instructions (If sedation given, give patient instructions): Urinary Tract Infection in Women (ED) Prescriptions: Sulfamethox-Tmp 800-160Mg [Bactrim DS 800-160 mg] 1 tab PO Q12HR 7 Days #14 tab Is patient prescribed a controlled substance at d/c from ED?: No Referrals: None,Stated [Primary Care Provider] - 1-2 days Martha Anderson MD [REFERRING] - 1-2 days Time of Disposition: 18:45
[2021-12-14] MEDS ORDERED: POTASSIUM CHLORIDE ER 20 MEQ TAB.ER PO STA (05:52)
[2021-12-14 06:41] LABS: Appearance,Urine Cloudy (Clear); Bacteria,Urine Many /hpf; Bilirubin,Urine Negative (Negative); Blood,Urine Moderate (Negative); Color,Urine Yellow; Glucose,Urine (UA) Negative (Negative); Ketones,Urine Negative (Negative); Leukocyte Esterase,Urine Large (Negative); Mucus,Urine Few /hpf; Nitrite,Urine Positive (Negative); PH, Urine 6.5 (5.0-8.0); Protein,Urine 1+ (Negative); RBC,Urine 45 /hpf (0-5); Specific Gravity,Urine 1.013 (1.001-1.035); Squamous Epithelial Cell,Urine 9 /hpf (0-4); Urobilinogen,Urine <2.0 mg/dL (<2.0); WBC,Urine >182 /hpf (0-5)
[2021-12-14] MEDS ORDERED: cefTRIAXone IN SWFI 1,000 MG/10 ML SYRINGE IVP STA (06:44)
== END 2021-12-14 07:07 | disposition home or self-care (01) ==
LOC: EC 04:13
DX: N39.0 Urinary tract infection, site not specified (principal); F17.200 Nicotine dependence, unspecified, uncomplicated; Z88.0 Allergy status to penicillin
CPT/HCPCS: 36415; 80053; 82150; 83605; 83690; 85025; 81001; 81025; 87086; 74018; 99284; 96374; 96375; 96361; J2270; J2405; J0696; J1885

== ENCOUNTER 2022-01-14 21:32 | Observation (INO) | payer OTHER ==
[2022-01-14] MEDS ORDERED: KETOROLAC 15 MG/ML 1 ML VIAL IVP STA (22:44)
[2022-01-14] MEDS ORDERED: SODIUM CHLORIDE 0.9% 2,000 ML IV STA (22:44)
[2022-01-14] MEDS ORDERED: ONDANSETRON 4 MG/2 ML VIAL IVP STA (22:45)
[2022-01-14 23:33] LABS: Basophils # (A) 0.1 k/uL (0-0.2); Basophils % (A) 0 %; Eosinophils # (A) 0.3 k/uL (0-0.7); Eosinophils % (A) 1 %; HGB 13.2 gm/dL (11.4-16.0); Lymphocytes # (A) 1.2 k/uL (1.0-4.8); Lymphocytes % (A) 6 %; MCH 30.1 pg (25.0-35.0); MCV 91.2 fL (80.0-100.0); Monocytes # (A) 0.9 k/uL (0-1.0); Monocytes % (A) 4 %; Neutrophils # (A) 17.4 k/uL (1.3-7.7); Neutrophils % (A) 87 %; Platelet Count 223 k/uL (150-450); RBC 4.39 m/uL (3.80-5.40); RDW 14.2 % (11.5-15.5)
--- NOTE | 2022-01-14 23:41 | ED ---
General Adult HPI - General Source: patient Mode of arrival: ambulatory Limitations: no limitations <Karina Mercado - Last Filed: 01/15/22 00:23> - General Source: patient, RN notes reviewed Mode of arrival: ambulatory Limitations: no limitations <Graham Pryor - Last Filed: 01/15/22 03:58> - General Chief complaint: Abdominal Pain Stated complaint: Kidney Pain Time Seen by Provider: 01/14/22 22:37 - History of Present Illness Initial comments: Patient is a 36-year-old female history of kidney stones and pyelonephritis presenting with chief complaint of right-sided flank pain. Patient states the pain has been ongoing for the last 3 days. She admits to nausea and vomiting. She denies any abdominal pain, dysuria, hematuria. No fever or chills. No chest pain or difficulty breathing. Patient was seen here a month ago for similar complaint, she was discharged on Bactrim. Patient states that she finished course. (Karina Mercado) - Related Data Previous Rx's Medication Instructions Recorded Sulfamethox-Tmp 800-160Mg [Bactrim 1 tab PO Q12HR 7 Days #14 tab 12/14/21 DS 800-160 mg] Allergies Allergy/AdvReac Type Severity Reaction Status Date / Time Penicillins Allergy Rash/Hives Verified 01/14/22 22:00 Review of Systems ROS Other: All systems not noted in ROS Statement are negative. <Karina Mercado - Last Filed: 01/15/22 00:23> ROS Other: All systems not noted in ROS Statement are negative. <Graham Pryor - Last Filed: 01/15/22 03:58> ROS Statement: Those systems with pertinent positive or pertinent negative responses have been documented in the HPI. Past Medical History Past Medical History: Neurologic Disorder Additional Past Medical History / Comment(s): Hx of cleft lip and palate. Hx of Guillain-[place] Syndrome. Hx kidney stones. History of Any Multi-Drug Resistant Organisms: None Reported Past Surgical History: Section, Cholecystectomy, Tubal Ligation Additional Past Surgical History / Comment(s): Cystoscopy, surgery for kidney stones. Past Anesthesia/Blood Transfusion Reactions: No Reported Reaction Past Psychological History: No Psychological Hx Reported Smoking Status: Current every day smoker Past Alcohol Use History: None Reported Past Drug Use History: None Reported - Past Family History Father Family Medical History: No Reported History Mother Family Medical History: Cancer, Diabetes Mellitus Additional Family Medical History / Comment(s): Kidney stones, lung cancer. Mother is . <Karina Mercado - Last Filed: 01/15/22 00:23> General Exam Limitations: no limitations General appearance: alert, in no apparent distress Head exam: Present: atraumatic, normocephalic, normal inspection Eye exam: Present: normal appearance, PERRL, EOMI. Absent: scleral icterus, conjunctival injection, periorbital swelling Neck exam: Present: normal inspection Respiratory exam: Present: normal lung sounds bilaterally. Absent: respiratory distress, wheezes, rales, rhonchi, stridor Cardiovascular Exam: Present: regular rate, normal rhythm, normal heart sounds. Absent: systolic murmur, diastolic murmur, rubs, gallop, clicks GI/Abdominal exam: Present: soft. Absent: distended, tenderness, guarding, rebound, rigid Back exam: Absent: CVA tenderness (R), CVA tenderness (L) Neurological exam: Present: alert, oriented X3, CN II-XII intact Psychiatric exam: Present: normal affect, normal mood Skin exam: Present: warm, dry, intact, normal color. Absent: rash <Karina Mercado - Last Filed: 01/15/22 00:23> Course <Karina Mercado - Last Filed: 01/15/22 00:23> <Graham Pryor - Last Filed: 01/15/22 03:58> Vital Signs 01/14/22 01/14/22 22:00 23:28 Temperature 98.1 F 98.1 F Pulse Rate 109 H 72 Respiratory 16 16 Rate Blood Pressure 110/73 122/67 O2 Sat by Pulse 99 98 Oximetry - Reevaluation(s) Reevaluation #1: Patient is signed out to GABINO Pryor 01/15/22 00:24 (Karina Mercado) Reevaluation #2: 01/15/22 00:31 I sent this patient from the previous APC, Allison. I went in to reevaluate the patient was somewhat improved after ketorolac. Patient awaiting computed tomography scan. Patient does not appear to be in any significant distress. Mild right CVA pain. Abdomen soft, benign, nontender, nondistended. Cardiac pulmonary examination is unremarkable. Patient does not appear to be ill or tox ic. (Graham Pryor) Reevaluation #3: 01/15/22 02:43 There is air in the urinary bladder, this could be cystitis and chronic pyelonephritis with gas-forming organisms. There is some new right-sided perinephric fluid compared to the old exam, right kidney appears larger than last exam. Acute pyelonephritis right kidney should be considered (Graham Pryor) Reevaluation #4: 01/15/22 03:39 Patient reevaluated, patient was able to drink some fluids but had return of pain and nausea. Case discussed in detail with ED supervising physician who suggested we admit the patient. We'll consult urology. (Graham Pryor) Medical Decision Making - Lab Data Result diagrams: 01/14/22 23:02 01/14/22 23:02 <Karina Mercado - Last Filed: 01/15/22 00:23> - Lab Data Result diagrams: 01/14/22 23:02 01/14/22 23:02 <Graham Pryor - Last Filed: 01/15/22 03:58> - Medical Decision Making Patient is a 36-year-old female presenting with chief complaint flank pain. Patient states the pain has been ongoing since Friday. Patient has history of kidney stones and pyelonephritis. Patient denies any fever. She admits to nausea and vomiting. Denies abdominal pain. On examination no abdominal pain on palpation. No CVA tenderness. Patient is afebrile. Lab work shows WBC 20.0. Sodium 136 potassium 3.1, she is given 2 L normal saline and oral potassium replacement. She is given Zofran and Toradol. Urine and CT are pending at this time. Patient is signed out to GABINO Pryor for further management and disposition. (Karina Mercado) Patient was given Rocephin 1 g IV push here in the ER. Potassium replacement was ordered. IV fluids were started at 130 mL hour after the initial bolus. P atient will be admitted to [facility] with urology consultation. The case was discussed in detail with ED attending physician. Presentation, findings, treatment plan discussed in detail. Discussed with Dr. Kern. [employer] Dr. Dc (Graham Pryor) - Lab Data Lab Results 1001/14/22 01/14/22 Range/Units 23:02 23:02 23:02 WBC 20.0 H (3.8-10.6) k/uL RBC 4.39 (3.80-5.40) m/uL Hgb 13.2 (11.4-16.0) gm/dL Hct 40.0 (34.0-46.0) % MCV 91.2 (80.0-100.0) fL MCH 30.1 (25.0-35.0) pg MCHC 33.0 (31.0-37.0) g/dL RDW 14.2 (11.5-15.5) % Plt Count 223 (150-450) k/uL MPV 8.0 Neutrophils % 87 % Lymphocytes % 6 % Monocytes % 4 % Eosinophils % 1 % Basophils % 0 % Neutrophils # 17.4 H (1.3-7.7) k/uL Lymphocytes # 1.2 (1.0-4.8) k/uL Monocytes # 0.9 (0-1.0) k/uL Eosinophils # 0.3 (0-0.7) k/uL Basophils # 0.1 (0-0.2) k/uL Sodium 136 L (137-145) mmol/L Potassium 3.1 L (3.5-5.1) mmol/L Chloride 108 H (98-107) mmol/L Carbon Dioxide 20 L (22-30) mmol/L Anion Gap 8 mmol/L BUN 12 (7-17) mg/dL Creatinine 0.98 (0.52-1.04) mg/dL Est GFR (CKD-EPI)AfAm 86 (>60 ml/min/1.73 sqM) Est GFR (CKD-EPI)NonAf 74 (>60 ml/min/1.73 sqM) Glucose 98 (74-99) mg/dL Plasma Lactic Acid Sung 0.9 (0.7-2.0) mmol/L Calcium 7.4 L (8.4-10.2) mg/dL Total Bilirubin 0.6 (0.2-1.3) mg/dL AST 13 L (14-36) U/L ALT 11 (4-34) U/L Alkaline Phosphatase 86 (38-126) U/L Total Protein 5.6 L (6.3-8.2) g/dL Albumin 3.0 L (3.5-5.0) g/dL Amylase <30 L (30-110) U/L Lipase <10 L (23-300) U/L Urine Color Urine Appearance (Clear) Urine pH (5.0-8.0) Ur Specific [place] (1.001-1.035) Urine Protein (Negative) Urine Glucose (UA) (Negative) Urine Ketones (Negative) Urine Blood (Negative) Urine Nitrite (Negative) Urine Bilirubin (Negative) Urine Urobilinogen (<2.0) mg/dL Ur Leukocyte Esterase (Negative) Urine RBC (0-5) /hpf Urine WBC (0-5) /hpf Urine WBC Clumps (None) /hpf Ur Squamous Epith Cells (0-4) /hpf Urine Bacteria (None) /hpf Urine Mucus (None) /hpf Urine HCG, Qual (Not Detectd) 01/15/22 01/15/22 Range/Units 01:07 01:07 WBC (3.8-10.6) k/uL RBC (3.80-5.40) m/uL Hgb (11.4-16.0) gm/dL Hct (34.0-46.0) % MCV (80.0-100.0) fL MCH (25.0-35.0) pg MCHC (31.0-37.0) g/dL RDW (11.5-15.5) % Plt Count (150-450) k/uL MPV Neutrophils % % Lymphocytes % % Monocytes % % Eosinophils % % Basophils % % Neutrophils # (1.3-7.7) k/uL Lymphocytes # (1.0-4.8) k/uL Monocytes # (0-1.0) k/uL Eosinophils # (0-0.7) k/uL Basophils # (0-0.2) k/uL Sodium (137-145) mmol/L Potassium (3.5-5.1) mmol/L Chloride (98-107) mmol/L Carbon Dioxide (22-30) mmol/L Anion Gap mmol/L BUN (7-17) mg/dL Creatinine (0.52-1.04) mg/dL Est GFR (CKD-EPI)AfAm (>60 ml/min/1.73 sqM) Est GFR (CKD-EPI)NonAf (>60 ml/min/1.73 sqM) Glucose (74-99) mg/dL Plasma Lactic Acid Sung (0.7-2.0) mmol/L Calcium (8.4-10.2) mg/dL Total Bilirubin (0.2-1.3) mg/dL AST (14-36) U/L ALT (4-34) U/L Alkaline Phosphatase (38-126) U/L Total Protein (6.3-8.2) g/dL Albumin (3.5-5.0) g/dL Amylase (30-110) U/L Lipase (23-300) U/L Urine Color Yellow Urine Appearance Cloudy H (Clear) Urine pH 7.0 (5.0-8.0) Ur Specific [place] 1.014 (1.001-1.035) Urine Protein 1+ H (Negative) Urine Glucose (UA) Negative (Negative) Urine Ketones Negative (Negative) Urine Blood Small H (Negative) Urine Nitrite Positive H (Negative) Urine Bilirubin Negative (Negative) Urine Urobilinogen <2.0 (<2.0) mg/dL Ur Leukocyte Esterase Large H (Negative) Urine RBC 30 H (0-5) /hpf Urine WBC >182 H (0-5) /hpf Urine WBC Clumps Many H (None) /hpf Ur Squamous Epith Cells 5 H (0-4) /hpf Urine Bacteria Few H (None) /hpf Urine Mucus Rare H (None) /hpf Urine HCG, Qual Not Detected (Not Detectd) Disposition <Karina Mercado - Last Filed: 01/15/22 00:23> Is patient prescribed a controlled substance at d/c from ED?: No <Graham Pryor - Last Filed: 01/15/22 03:58> Clinical Impression: Sepsis, Pyelonephritis, Nephrolithiasis Disposition: ADMITTED IP TO THIS HOSP Condition: Stable Referrals: Jacquelin Cottrell NPC [Primary Care Provider] - 1-2 days
[2022-01-14 23:42] LABS: ALT 11 U/L (4-34); AST 13 U/L (14-36); African American GFR (CKD) 86 (>60 ml/min/1.73 sqM); Alkaline Phosphatase 86 U/L (38-126); Amylase <30 U/L (30-110); Anion Gap 8 mmol/L; Blood Urea Nitrogen 12 mg/dL (7-17); Calcium 7.4 mg/dL (8.4-10.2); Carbon Dioxide 20 mmol/L (22-30); Chloride 108 mmol/L (98-107); Glucose 98 mg/dL (74-99); Lipase <10 U/L (23-300); Non-African American GFR(CKD) 74 (>60 ml/min/1.73 sqM); Potassium 3.1 mmol/L (3.5-5.1); Sodium 136 mmol/L (137-145); Total Bilirubin 0.6 mg/dL (0.2-1.3); Total Protein 5.6 g/dL (6.3-8.2)
[2022-01-15] MEDS ORDERED: Potassium Replacement Protocol 1 EACH MISC MISCELLANE PRN (00:13)
[2022-01-15 01:51] LABS: Appearance,Urine Cloudy (Clear); Bacteria,Urine Few /hpf; Bilirubin,Urine Negative (Negative); Blood,Urine Small (Negative); Color,Urine Yellow; Glucose,Urine (UA) Negative (Negative); Ketones,Urine Negative (Negative); Leukocyte Esterase,Urine Large (Negative); Mucus,Urine Rare /hpf; Nitrite,Urine Positive (Negative); Protein,Urine 1+ (Negative); RBC,Urine 30 /hpf (0-5); Specific Gravity,Urine 1.014 (1.001-1.035); Squamous Epithelial Cell,Urine 5 /hpf (0-4); Urobilinogen,Urine <2.0 mg/dL (<2.0); WBC,Urine >182 /hpf (0-5)
--- NOTE | 2022-01-15 02:15 | CT ---
EXAMINATION TYPE: CT abdomen pelvis wo con DATE OF EXAM: 01/15/2022 COMPARISON: 11/20/2021 HISTORY: RT RENAL SIDE PAIN SINCE FRIDAY 020 CT DLP: 770.7 mGycm Automated exposure control for dose reduction was used. Images obtained from the diaphragm to the floor of the pelvis with no contrast. The lung bases are clear. No pleural effusion. No pericardial effusion. Liver spleen stomach and pancreas appear intact. The bile ducts not dilated. There are clips from cho lecystectomy. There is no adrenal mass. There are numerous bilateral renal calculi. There is 3.5 cm m ixed density calculus in the pelvis of the left kidney. No significant hydronephrosis. Ureters are no t dilated. There is right-sided perinephric fluid. The appendix is posterior and appears normal. The bladder distends smoothly. There is some air in the urinary bladder. There is some air within the lar ge left renal calculus. Uterus is anteverted. No pelvic mass. No inguinal hernia. No free fluid in th e pelvis. There is no mesenteric edema. No ascites or free air. No sign of a bowel obstruction. The lumbar vert ebrae have normal spacing and alignment there are numerous sacral cysts. No lumbar compression fractu re. The bony pelvis is intact. Joints are intact. IMPRESSION: Numerous bilateral renal calculi similar to the old exam large calculus in the left renal pelvis also contains air and not significantly different. There is air in the urinary bladder. This could be cys titis and chronic pyelonephritis with gas-forming organisms. There is some new right-sided perinephric fluid compared to the old exam. Right kidney appears larger than last exam. Acute pyelonephritis right kidney should be considered. There is clearing of the lef t side perinephric fluid and edema compared to exam
[2022-01-15] MEDS ORDERED: SODIUM CHLORIDE 0.9% 1,000 ML IV SCH (02:45)
[2022-01-15] MEDS ORDERED: methylPREDNISolone SOD SUCCI 125 MG/2 ML VIAL IM STA (02:46)
[2022-01-15] MEDS ORDERED: cefTRIAXone IN SWFI 1,000 MG/10 ML SYRINGE IVP STA (02:53)
[2022-01-15] MEDS: POTASSIUM CHLORIDE ER 20 MEQ TAB.ER PO SCH ×2 (03:24→09:14)
[2022-01-15] MEDS ORDERED: HYDROmorphone 1 MG/ML 1 ML SYRINGE IVP STA (03:39)
[2022-01-15] MEDS ORDERED: ONDANSETRON 4 MG/2 ML VIAL IVP STA (03:39)
[2022-01-15] MEDS ORDERED: ONDANSETRON 4 MG/2 ML VIAL IVP PRN (03:45)
[2022-01-15] MEDS ORDERED: ACETAMINOPHEN TAB 325 MG TAB PO PRN (03:45)
[2022-01-15] MEDS ORDERED: NALOXONE 0.4 MG/ML 1 ML VIAL IV PRN (03:45)
[2022-01-15] MEDS ORDERED: HYDROmorphone 0.5 MG/0.5 ML SYRINGE IVP PRN (03:45)
[2022-01-15] MEDS ORDERED: 0.9% NACL WITH KCL 20 MEQ/L 1,000 ML IV STA (03:56)
--- NOTE | 2022-01-15 04:18 | P.HPIM ---
History of Present Illness H&P Date: 01/15/22 Chief Complaint: right flank pain 36 year old female with history of cleft lip, recurrent episodes of nephrolithiasis with pyelonephritis patient coming in due to right flank pain and fever, for the past 3 days , today patient was having worsening right flank colicky pain 9/10 in severity with repeated episodes of vomiting, denies hematuria or foul smelling urine , but do es report frequency and irritation, denies diarrhea , abd pain , chest pain , SOB, or myalgia. she is known to have recurrent episodes of nephrolithiasis and UTI , she had 2 other episodes since September of this year. denies any recent travel or hospital stay , she does not believe she is , denies any trauma to her back. workup inthe ED showed leukocytosis and UA suggestive of UTI. CT of abd showed air in the urinary bladder, this could be cystitis and chronic pyelonephritis with gas-forming organisms. There is some new right- sided perinephric fluid compared to the old exam, right kidney appears larger than last exam. Acute pyelonephritis right kidney is suspected Review of Systems Pertinent positives as noted in HPI. 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 Hx kidney stones. History of Any Multi-Drug Resistant Organisms: None Reported Past Surgical History: Section, Cholecystectomy, Tubal Ligation Additional Past Surgical History / Comment(s): Cystoscopy, surgery for kidney stones. Past Anesthesia/Blood Transfusion Reactions: No Reported Reaction Past Psychological History: No Psychological Hx Reported Smoking Status: Current every day smoker Past Alcohol Use History: None Reported Past Drug Use History: None Reported - Past Family History Father Family Medical History: No Reported History Mother Family Medical History: Cancer, Diabetes Mellitus Additional Family Medical History / Comment(s): Kidney stones, lung cancer. Mother is . Medications and Allergies Home Medications Medication Instructions Recorded Confirmed Type Sulfamethox-Tmp 800-160Mg [Bactrim 1 tab PO Q12HR 7 Days #14 tab 12/14/21 Rx DS 800-160 mg] Allergies Allergy/AdvReac Type Severity Reaction Status Date / Time Penicillins Allergy Rash/Hives Verified 01/14/22 22:00 Physical Exam Vitals: Vital Signs Temp Pulse Resp BP Pulse Ox 01/14/22 23:28 98.1 F 72 16 122/67 98 01/14/22 22:00 98.1 F 109 H 16 110/73 99 Intake and Output 01/14/22 01/14/22 01/15/22 14:59 22:59 06:59 Other: Weight 54.431 kg Constitutional: No acute distress, conversant, pleasant Eyes: Anicteric sclerae, moist conjunctiva, Pupils equal round reactive to light ENMT: NC/AT Oropharynx clear, no erythema, or exudates Neck: Supple, FROM, no masses, or JVD No carotid bruits No thyromegaly Lungs: Clear to auscultation Clear to percussion Normal respiratory effort, no accessory muscle use Cardiovascular: Heart regular in rate and rhythm, No murmurs, gallops, or rubs No peripheral edema Abdominal: Soft tenderness to percussion of the right CVA, no guarding, rebound or rigidity Abdomen moving with respiration Normoactive bowel sounds No hepatomegaly, No splenomegaly No palpable mass No abdominal wall hernia noted Skin: Normal temperature, tone, texture, turgor No induration No subcutaneous nodules No rash, lesions No ulcers Extremities: No digital cyanosis No clubbing Pedal pulses intact and symmetrical Radial pulses intact and symmetrical No calf tenderness Psychiatric: Alert and oriented to person, place and time Appropriate affect fair judgement Neuro Muscles Strength 5/5 in all 4 extremities Sensation to light touch grossly present throughout Cranial nerves II-XII grossly intact No focal sensory deficits Lymphatics: no palpable cervical or supraclavicular , or inguinal lymph nodes Results CBC & Chem 7: 01/14/22 23:02 01/14/22 23:02 Labs: Abnormal Lab Results - Last 24 Hours (Table) 01/14/22 01/14/22 01/15/22 Range/Units 23:02 23:02 01:07 WBC 20.0 H (3.8-10.6) k/uL Neutrophils # 17.4 H (1.3-7.7) k/uL Sodium 136 L (137-145) mmol/L Potassium 3.1 L (3.5-5.1) mmol/L Chloride 108 H (98-107) mmol/L Carbon Dioxide 20 L (22-30) mmol/L Calcium 7.4 L (8.4-10.2) mg/dL AST 13 L (14-36) U/L Total Protein 5.6 L (6.3-8.2) g/dL Albumin 3.0 L (3.5-5.0) g/dL Amylase <30 L (30-110) U/L Lipase <10 L (23-300) U/L Urine Appearance Cloudy H (Clear) Urine Protein 1+ H (Negative) Urine Blood Small H (Negative) Urine Nitrite Positive H (Negative) Ur Leukocyte Esterase Large H (Negative) Urine RBC 30 H (0-5) /hpf Urine WBC >182 H (0-5) /hpf Urine WBC Clumps Many H (None) /hpf Ur Squamous Epith Cells 5 H (0-4) /hpf Urine Bacteria Few H (None) /hpf Urine Mucus Rare H (None) /hpf Assessment and Plan Assessment: sepsis 2/2 acute pyelonephritis , with bilateral nephrolithiasis CT abd reviewed follow up cultures rocephine 1 gm IVPB daily tylenol for fever symptomatic control of N/V with zofran pain control with dilaudid strain urine urology consult IVF hydration with normal saline hypokalemia replace and follow up level full code DVT PPX SCD
[2022-01-15] MEDS ORDERED: KETOROLAC 15 MG/ML 1 ML VIAL IVP PRN (08:27)
[2022-01-15] MEDS: HEPARIN SODIUM,PORCINE/PF 5,000 UNIT/0.5 ML SYRINGE SQ SCH ×3 (09:15→20:44)
[2022-01-15] MEDS: HYDROcodone/APAP 5-325MG 1 EACH TAB PO PRN ×2 (09:15→20:43)
[2022-01-15] MEDS ORDERED: NICOTINE GUM (POLACRILEX) 2 MG GUM BUCCAL PRN (15:50)
--- NOTE | 2022-01-15 15:50 | P.PN ---
Subjective Progress Note Date: 01/15/22 (delayed charting seen at 0930) Patient is a 36-year-old female with history of recurrent nephrolithiasis and pyelonephritis, and Darby syndrome, cleft lip who presented to the ER with compl aints of right sided back pain. In the ER she underwent an extensive evaluation. On arrival she was tachycardic with a pulse of 109. Laboratory analysis was remarkable for white blood cell count of 20, sodium 136, potassium 3.1, and urinalysis showed hermila leukouria. CT abdomen and pelvis showed numerous bilateral renal calculi with left renal pelvis with air not significantly different from prior. Right-sided perinephric fluid with clearing of left-sided perinephric fluid. She was started on IV fluids and Rocephin. Arrangements were made for admission. Patient seen and examined at bedside with family present. She reports that she continues to have some right-sided back pain. She continues to have dysuria. She denies any chest pain, shortness breath, nausea or vomiting. She does report a history of prior kidney stones. She is requiring lithotripsy in the past for she reports that her stones have not been sent for analysis prior they have been unamenable to obtain any. I underscored with her the importance of taking an antibiotic and staying until her urine culture is completed. I also discussed the importance of following this with lithotripsy as she is likely to get recurrent infection from those stones if they remain untreated. General: Ill-appearing, no distress, appears at stated age Derm: warm, dry Head: atraumatic, normocephalic, symmetric Eyes: EOMI, no lid lag, anicteric sclera Mouth: no lip lesion, mucus membranes dry Cardiovascular: S1S2 reg, no murmur, positive posterior tibial pulse bilateral, Lungs: CTA bilateral, no rhonchi, no rales , no accessory muscle use Abdominal: soft, nontender to palpation, no guarding, no appreciable organomegaly Ext: no gross muscle atrophy, no edema, no contractures Neuro: CN II-XI grossly intact, no focal neuro deficits Psych: Alert, oriented, appropriate affect Assessment/plan: Pyelonephritis with sepsis related to bilateral nephrolithiasis -Continue with Rocephin -IV fluids -Await urine culture -Urology recommendations appreciated: Discussed with Dr. Pichardo and likely need for outpatient lithotripsy -Strain urine and attempt to obtain stone, if obtained send for stone analysis. Tobacco abuse -Cessation -Nicotine replacement Anticipate home in 24-48 hours pending culture results. Active Medications Generic Name Dose Route Start Last Admin Trade Name Saulo PRN Reason Stop Dose Admin Acetaminophen 650 mg 01/15/22 03:45 Acetaminophen Tab 325 Mg Tab PO Q6HR PRN Mild Pain or Fever > 100.5 Hydrocodone Bitart/Acetaminophen 1 each 01/15/22 08:28 01/15/22 09:15 Hydrocodone/Apap 5-325mg 1 Each Tab PO 1 each Q6HR PRN Administration Pain Heparin Sodium (Porcine) 5,000 unit 01/15/22 08:00 01/15/22 09:15 Heparin Sodium,Porcine/Pf 5,000 Unit/0.5 Ml Syringe SQ 5,000 unit Q8HR SHYLA Administration Ceftriaxone Sodium 1 gm/ 50 mls @ 100 mls/hr 01/16/22 03:00 Sodium Chloride IVPB Q24H SHYLA Protocol Ketorolac Tromethamine 15 mg 01/15/22 08:27 Ketorolac 15 Mg/Ml 1 Ml Vial IVP 01/18/22 08:27 Q6HR PRN Pain Miscellaneous Information 1 each 01/15/22 00:13 Potassium Replacement Protocol 1 Each Misc MISCELLANE DAILY PRN Per Protocol Protocol Naloxone HCl 0.2 mg 01/15/22 03:45 Naloxone 0.4 Mg/Ml 1 Ml Vial IV Q2M PRN Opioid Reversal Ondansetron HCl 4 mg 01/15/22 03:45 01/15/22 09:29 Ondansetron 4 Mg/2 Ml Vial IVP 4 mg Q8HR PRN Administration Nausea And Vomiting Objective - Vital Signs Vital signs: Vital Signs Temp 97.4 F L 01/15/22 13:48 Pulse 67 01/15/22 13:48 Resp 14 01/15/22 13:48 BP 105/68 01/15/22 13:48 Pulse Ox 100 01/15/22 13:48 FiO2 Intake & Output 01/14/22 01/15/22 01/15/22 18:59 06:59 18:59 Weight 54.431 kg Other: # Voids 2 - Labs CBC & Chem 7: 01/14/22 23:02 01/14/22 23:02 Labs: Abnormal Lab Results - Last 24 Hours (Table) 01/14/22 01/14/22 01/15/22 Range/Units 23:02 23:02 01:07 WBC 20.0 H (3.8-10.6) k/uL Neutrophils # 17.4 H (1.3-7.7) k/uL Sodium 136 L (137-145) mmol/L Potassium 3.1 L (3.5-5.1) mmol/L Chloride 108 H (98-107) mmol/L Carbon Dioxide 20 L (22-30) mmol/L Calcium 7.4 L (8.4-10.2) mg/dL AST 13 L (14-36) U/L Total Protein 5.6 L (6.3-8.2) g/dL Albumin 3.0 L (3.5-5.0) g/dL Amylase <30 L (30-110) U/L Lipase <10 L (23-300) U/L Urine Appearance Cloudy H (Clear) Urine Protein 1+ H (Negative) Urine Blood Small H (Negative) Urine Nitrite Positive H (Negative) Ur Leukocyte Esterase Large H (Negative) Urine RBC 30 H (0-5) /hpf Urine WBC >182 H (0-5) /hpf Urine WBC Clumps Many H (None) /hpf Ur Squamous Epith Cells 5 H (0-4) /hpf Urine Bacteria Few H (None) /hpf Urine Mucus Rare H (None) /hpf
[2022-01-15] MEDS: SODIUM CHLORIDE 0.9% 1,000 ML IV SCH (16:34)
--- NOTE | 2022-01-15 18:21 | P.GSCN ---
History of Present Illness Consult date: 01/15/22 Reason for Consult: Bilateral renal calculi, right-sided pyelonephritis History of present illness: this is a 36-year-old female history of recurrent kidney stones, presented to the ER with right sided flank pain, associate with nausea. Denies any gross hematuria, dysuria, fevers or chills. In the ER she underwent a CT abdomen and pelvis that showed evidence of bilateral renal stones, right perinephric fat stranding, evidence of air within the left collecting system within the stone. Of note she was recently admitted to the hospital back in November, but patient left the hospital prior to finalizing the urine cultures. Does have history of recurrent kidney stones and follows up with Dr. Parish for her stone disease. has required ureteroscopy, laser in the past. On presentation urine analysis is concerning for UTI, she had a leukocytosis 20,000. Review of Systems - Constitutional Denies chills, Denies fever - EENT Ears, nose, mouth and throat: Denies dysphagia - Cardiovascular Denies chest pain, Denies shortness of breath - Respiratory Denies cough, Denies 7 - Gastrointestinal Reports abdominal pain, Reports nausea, Reports vomiting - Genitourinary Genitourinary: Reports flank pain - Integumentary Denies rash, Denies unusual bruising - Neurological Denies headaches, Denies syncope Past Medical History Past Medical History: Neurologic Disorder Additional Past Medical History / Comment(s): Hx of cleft lip and palate. Hx of Guillain-[place] Syndrome. Hx kidney stones. History of Any Multi-Drug Resistant Organisms: None Reported Past Surgical History: Section, Cholecystectomy, Tubal Ligation Additional Past Surgical History / Comment(s): Cystoscopy, surgery for kidney stones. Past Anesthesia/Blood Transfusion Reactions: No Reported Reaction Past Psychological History: No Psychological Hx Reported Smoking Status: Current every day smoker Past Alcohol Use History: None Reported Past Drug Use History: None Reported - Past Family History Father Family Medical History: No Reported History Mother Family Medical History: Cancer, Diabetes Mellitus Additional Family Medical History / Comment(s): Kidney stones, lung cancer. Mother is . Medications and Allergies Home Medications Medication Instructions Recorded Confirmed Type No Known Home Medications 01/15/22 01/15/22 History Allergies Allergy/AdvReac Type Severity Reaction Status Date / Time Penicillins Allergy Rash/Hives Verified 01/15/22 06:55 Surgical - Exam Vital Signs Temp Pulse Resp BP Pulse Ox 98.1 F 109 H 16 110/73 99 01/14/22 22:00 01/14/22 22:00 01/14/22 22:00 01/14/22 22:00 01/14/22 22:00 - General no distress, moderate pain - Eyes normal ocular movement, no pale - ENT normal nares, normal mucosa - Respiratory normal expansion, normal respiratory effort - Abdomen Abdomen: soft, tender (Right flank) - Psychiatric oriented to time, oriented to person, oriented to place Results - Labs 01/14/22 23:02 01/14/22 23:02 Abnormal Lab Results - Last 24 Hours (Table) 01/14/22 01/14/22 01/15/22 Range/Units 23:02 23:02 01:07 WBC 20.0 H (3.8-10.6) k/uL Neutrophils # 17.4 H (1.3-7.7) k/uL Sodium 136 L (137-145) mmol/L Potassium 3.1 L (3.5-5.1) mmol/L Chloride 108 H (98-107) mmol/L Carbon Dioxide 20 L (22-30) mmol/L Calcium 7.4 L (8.4-10.2) mg/dL AST 13 L (14-36) U/L Total Protein 5.6 L (6.3-8.2) g/dL Albumin 3.0 L (3.5-5.0) g/dL Amylase <30 L (30-110) U/L Lipase <10 L (23-300) U/L Urine Appearance Cloudy H (Clear) Urine Protein 1+ H (Negative) Urine Blood Small H (Negative) Urine Nitrite Positive H (Negative) Ur Leukocyte Esterase Large H (Negative) Urine RBC 30 H (0-5) /hpf Urine WBC >182 H (0-5) /hpf Urine WBC Clumps Many H (None) /hpf Ur Squamous Epith Cells 5 H (0-4) /hpf Urine Bacteria Few H (None) /hpf Urine Mucus Rare H (None) /hpf Diabetes panel 01/14/22 Range/Units 23:02 Sodium 136 L (137-145) mmol/L Potassium 3.1 L (3.5-5.1) mmol/L Chloride 108 H (98-107) mmol/L Carbon Dioxide 20 L (22-30) mmol/L BUN 12 (7-17) mg/dL Creatinine 0.98 (0.52-1.04) mg/dL Glucose 98 (74-99) mg/dL Calcium 7.4 L (8.4-10.2) mg/dL AST 13 L (14-36) U/L ALT 11 (4-34) U/L Alkaline Phosphatase 86 (38-126) U/L Total Protein 5.6 L (6.3-8.2) g/dL Albumin 3.0 L (3.5-5.0) g/dL Calcium panel 01/14/22 Range/Units 23:02 Calcium 7.4 L (8.4-10.2) mg/dL Albumin 3.0 L (3.5-5.0) g/dL Pituitary panel 01/14/22 Range/Units 23:02 Sodium 136 L (137-145) mmol/L Potassium 3.1 L (3.5-5.1) mmol/L Chloride 108 H (98-107) mmol/L Carbon Dioxide 20 L (22-30) mmol/L BUN 12 (7-17) mg/dL Creatinine 0.98 (0.52-1.04) mg/dL Glucose 98 (74-99) mg/dL Calcium 7.4 L (8.4-10.2) mg/dL Adrenal panel 01/14/22 Range/Units 23:02 Sodium 136 L (137-145) mmol/L Potassium 3.1 L (3.5-5.1) mmol/L Chloride 108 H (98-107) mmol/L Carbon Dioxide 20 L (22-30) mmol/L BUN 12 (7-17) mg/dL Creatinine 0.98 (0.52-1.04) mg/dL Glucose 98 (74-99) mg/dL Calcium 7.4 L (8.4-10.2) mg/dL Total Bilirubin 0.6 (0.2-1.3) mg/dL AST 13 L (14-36) U/L ALT 11 (4-34) U/L Alkaline Phosphatase 86 (38-126) U/L Total Protein 5.6 L (6.3-8.2) g/dL Albumin 3.0 L (3.5-5.0) g/dL Assessment and Plan Assessment: 36-year-old female history of recurrent UTIs or recurrent kidney stones, presents with right-sided pyelonephritis. I reviewed the images I see no evidence of obstructing stone along the right ureter. But given her recurrent UTI and the evidence of air within the stone on the left side she will e ventually require surgical removal of stones as this could be contributing to her recurrent UTIs. -Recommend keeping in the hospital until culture is finalized, recommend minimum of 2 weeks of antibiotics -Follow-up as an outpatient with Dr. Parish to discuss surgical intervention for her stone
[2022-01-16] MEDS: SODIUM CHLORIDE 0.9% 1,000 ML IV SCH ×2 (05:18→20:43)
[2022-01-16] MEDS: HYDROcodone/APAP 5-325MG 1 EACH TAB PO PRN (07:10)
[2022-01-16] MEDS: HEPARIN SODIUM,PORCINE/PF 5,000 UNIT/0.5 ML SYRINGE SQ SCH ×3 (07:12→20:44)
[2022-01-16 09:13] LABS: Basophils # (A) 0.02 X 10*3/uL (0.00-0.10); Basophils % (A) 0.2 %; Eosinophils # (A) 0.16 X 10*3/uL (0.04-0.35); Eosinophils % (A) 1.6 %; HCT 32.5 % (37.2-46.3); HGB 10.7 g/dL (12.0-15.0); Immature Grans, Automated 0.5 %; Lymphocytes # (A) 1.32 X 10*3/uL (0.90-5.00); Lymphocytes % (A) 12.9 %; MCH 30.1 pg (27.0-32.0); MCHC 32.9 g/dL (32.0-37.0); MCV 91.5 fL (80.0-97.0); Mean Platelet Volume 10.7 fL (9.5-12.2); Monocytes # (A) 0.79 X 10*3/uL (0.20-1.00); Monocytes % (A) 7.7 %; NRBC Per 100 WBC 0 /100 WBCS (0.0-0.0); Neutrophils # (A) 7.86 X 10*3/uL (1.80-7.70); Neutrophils % (A) 77.1 %; Platelet Count 205 X 10*3/uL (140-440); RBC 3.55 X 10*6/uL (4.10-5.20); RDW 15.1 % (11.5-14.5)
[2022-01-16 09:45] LABS: ALT 6 U/L (8-44); AST 10 U/L (13-35); African American GFR (CKD) 83.9 (60.0-200.0); Albumin 3.2 g/dL (3.8-4.9); Albumin/Globulin Ratio 1.39 (1.60-3.17); Alkaline Phosphatase 89 U/L (41-126); Calcium 8.2 mg/dL (8.7-10.3); Carbon Dioxide 23.3 mmol/L (20.0-27.5); Chloride 106 mmol/L (96-109); Globulin 2.3 g/dL (1.6-3.3); Glucose 96 mg/dL (70-110); Non-African American GFR(CKD) 72.4 (60.0-200.0); Potassium 4.1 mmol/L (3.5-5.5); Sodium 136 mmol/L (135-145); Total Bilirubin <0.15 mg/dL (0.30-1.20); Total Protein 5.5 g/dL (6.2-8.2)
--- NOTE | 2022-01-16 16:27 | P.PN ---
Subjective Progress Note Date: 01/16/22 (delayed charting seen at 0915) Patient is a 36-year-old female with history of recurrent nephrolithiasis and pyelonephritis, and Darby syndrome, cleft lip who presented to the ER with compl aints of right sided back pain. In the ER she underwent an extensive evaluation. On arrival she was tachycardic with a pulse of 109. Laboratory analysis was remarkable for white blood cell count of 20, sodium 136, potassium 3.1, and urinalysis showed hermila leukouria. CT abdomen and pelvis showed numerous bilateral renal calculi with left renal pelvis with air not significantly different from prior. Right-sided perinephric fluid with clearing of left-sided perinephric fluid. She was started on IV fluids and Rocephin. Arrangements were made for admission. Plan is for outpatient lithotripsy. Patient seen and examined at bedside. Pain is still present but better. Still having some nausea when the pain is more severe but not at baseline. No shortness of breath. General: Ill-appearing, no distress, appears at stated age Derm: warm, dry Head: atraumatic, normocephalic, symmetric Eyes: EOMI, no lid lag, anicteric sclera Mouth: no lip lesion, mucus membranes dry Cardiovascular: S1S2 reg, no murmur, positive posterior tibial pulse bilateral, Lungs: CTA bilateral, no rhonchi, no rales , no accessory muscle use Abdominal: soft, nontender to palpation, no guarding, no appreciable organomegaly Ext: no gross muscle atrophy, no edema, no contractures Neuro: CN II-XI grossly intact, no focal neuro deficits Psych: Alert, oriented, appropriate affect Assessment/plan: Pyelonephritis with sepsis related to bilateral nephrolithiasis -Continue with Rocephin -Await urine culture -Urology recommendations appreciated: Discussed with Dr. Pichardo and likely need for outpatient lithotripsy -Strain urine and attempt to obtain stone, if obtained send for stone analysis. Tobacco abuse -Cessation -Nicotine replacement Anticipate home once culture results available. Active Medications Acetaminophen (Acetaminophen Tab 325 Mg Tab) 650 mg PO Q6HR PRN PRN Reason: Mild Pain or Fever > 100.5 Hydrocodone Bitart/Acetaminophen (Hydrocodone/Apap 5-325mg 1 Each Tab) 1 each PO Q6HR PRN PRN Reason: Pain Last Admin: 01/16/22 07:10 Dose: 1 each Heparin Sodium (Porcine) (Heparin Sodium,Porcine/Pf 5,000 Unit/0.5 Ml Syringe) 5,000 unit SQ Q8HR [facility] Last Admin: 01/16/22 07:12 Dose: Not Given Ceftriaxone Sodium 1 gm/ (Sodium Chloride) 50 mls @ 100 mls/hr IVPB Q24H SHYLA; Protocol Last Admin: 01/16/22 02:14 Dose: 100 mls/hr Sodium Chloride (Saline 0.9%) 1,000 mls @ 75 mls/hr IV .[id number] [facility] Last Admin: 01/16/22 05:18 Dose: 75 mls/hr Ketorolac Tromethamine (Ketorolac 15 Mg/Ml 1 Ml Vial) 15 mg IVP Q6HR PRN PRN Reason: Pain Stop: 01/18/22 08:27 Miscellaneous Information (Potassium Replacement Protocol 1 Each Misc) 1 each MISCELLANE DAILY PRN; Protocol PRN Reason: Per Protocol Naloxone HCl (Naloxone 0.4 Mg/Ml 1 Ml Vial) 0.2 mg IV Q2M PRN PRN Reason: Opioid Reversal Nicotine Polacrilex (Nicotine Gum (Polacrilex) 2 Mg Gum) 2 mg BUCCAL Q4HR PRN PRN Reason: Nicotine Cravings Ondansetron HCl (Ondansetron 4 Mg/2 Ml Vial) 4 mg IVP Q8HR PRN PRN Reason: Nausea And Vomiting Last Admin: 01/15/22 09:29 Dose: 4 mg Objective - Vital Signs Vital signs: Vital Signs Temp 97.5 F L 01/16/22 15:00 Pulse 71 01/16/22 15:00 Resp 18 01/16/22 15:00 BP 122/73 01/16/22 15:00 Pulse Ox 98 01/16/22 15:00 FiO2 Intake & Output 01/15/22 01/16/22 01/16/22 18:59 06:59 18:59 Intake Total 360 Balance 360 Intake: Oral 360 Other: # Voids 1 2 2 - Labs CBC & Chem 7: 01/16/22 05:17 01/16/22 05:17 Labs: Abnormal Lab Results - Last 24 Hours (Table) 01/16/22 01/16/22 Range/Units 05:17 05:17 WBC 10.20 H (4.50-10.00) X 10*3/uL RBC 3.55 L (4.10-5.20) X 10*6/uL Hgb 10.7 L (12.0-15.0) g/dL Hct 32.5 L (37.2-46.3) % RDW 15.1 H (11.5-14.5) % Immature Gran # 0.05 H (0.00-0.04) X 10*3/uL Neutrophils # 7.86 H (1.80-7.70) X 10*3/uL Anion Gap 6.70 L (10.00-18.00) mmol/L Calcium 8.2 L (8.7-10.3) mg/dL Total Bilirubin <0.15 L (0.30-1.20) mg/dL AST 10 L (13-35) U/L ALT 6 L (8-44) U/L Total Protein 5.5 L (6.2-8.2) g/dL Albumin 3.2 L (3.8-4.9) g/dL Albumin/Globulin Ratio 1.39 L (1.60-3.17) g/dL
[2022-01-17] MEDS: HEPARIN SODIUM,PORCINE/PF 5,000 UNIT/0.5 ML SYRINGE SQ SCH ×2 (07:52→07:53)
[2022-01-17] MEDS: SODIUM CHLORIDE 0.9% 1,000 ML IV SCH (08:15)
[2022-01-17 08:38] VITALS: BP 167/76; PULSE 50; RESP 18; TEMP 97.4
--- NOTE | 2022-01-17 15:33 | P.DS ---
Providers Date of admission: 01/15/22 03:36 Expected date of discharge: 01/17/22 Attending physician: Sal Kern MD Consults: 01/15/22 03:51 Consult Physician Urgent Consulting Provider: Pipe Parish Consult Reason/Comments: pyelonephritis Do you want consulting provider notified?: Yes, Notify in am Primary care physician: ALYX Diez Hospital Course: Pyelonephritis with sepsis related to bilateral nephrolithiasis Tobacco abuse Patient is a 36-year-old female with history of recurrent nephrolithiasis and pyelonephritis, and Darby syndrome, cleft lip who presented to the ER with complaints of right sided back pain. In the ER she underwent an extensive evaluation. On arrival she was tachycardic with a pulse of 109. Laboratory analysis was remarkable for white blood cell count of 20, sodium 136, potassium 3.1, and urinalysis showed hermila leukouria. CT abdomen and pelvis showed numerous bilateral renal calculi with left renal pelvis with air not significantly different from prior. Right-sided perinephric fluid with clearing of left-sided perinephric fluid. She was started on IV fluids and Rocephin. Arrangements were made for admission. Plan is for outpatient lithotripsy. Patient improved back to her usual state of health as of 01/17. Her cultures finalized showing E coli with sensitivity to ceftriaxone. She was discharged with an additional 12 days of abx per urology recommendation. I spent 35 minutes coordinating this discharge. Gen: awake, alert HEENT: normocephalic, atraumatic, good hearing acuity, moist mucous membranes Resp: good air exchange, breathing comfortably with no accessory muscle use CVS: good distal perfusion x 4, GI: soft, NTTP, ND : no SPT, no CVAT, groves catheter not present MSK: no pitting edema, no clubbing Neuro: non-focal, moving all extremities Psych: cooperative, euthymic mood Patient Condition at Discharge: Good Plan - Discharge Summary Discharge Rx Participant: No New Discharge Prescriptions: New Cefdinir 300 mg PO Q12HR 12 Days #24 cap Acetaminophen Tab [Tylenol] 650 mg PO Q6HR PRN tab PRN Reason: Mild Pain Or Fever > 100.5 Discharge Medication List Acetaminophen Tab [Tylenol] 650 mg PO Q6HR PRN tab 01/17/22 [Rx] Cefdinir 300 mg PO Q12HR 12 Days #24 cap 01/17/22 [Rx] Follow up Appointment(s)/Referral(s): Jacquelin Cottrell NPC [Primary Care Provider] - 1-2 days Patient Instructions/Handouts: Kidney Stones (DC), Urinary Tract Infection in Children (DC), Urinary Tract Infection in Women (DC) Activity/Diet/Wound Care/Special Instructions: FOLLOW UP DIRECTED, TAKE ALL ANTIBIOTICS UNTIL FINISHED. YOGURT ENCOURAGED OR OVER THE COUNTER PROBIOTIC. DRINK PLENTY OF FLUIDS. CALL FOR WORSENING PAIN, SYMPTOMS, PROBLEMS OR CONCERNS. Discharge Disposition: HOME SELF-CARE
== END 2022-01-17 11:08 | disposition home or self-care (01) ==
LOC: EC 21:32 → 6NMEDSUR 01-15 03:36
PROVIDERS: ADMIT Internal Medicine; ATTEND Internal Medicine
DX: A41.9 Sepsis, unspecified organism (principal); N10 Acute pyelonephritis; N20.0 Calculus of kidney; F17.200 Nicotine dependence, unspecified, uncomplicated; E87.6 Hypokalemia; Z90.49 Acquired absence of other specified parts of digestive tract; Z87.442 Personal history of urinary calculi; Z88.0 Allergy status to penicillin; Z87.730 Personal history of (corrected) cleft lip and palate; Z83.3 Family history of diabetes mellitus; Z80.1 Family history of malignant neoplasm of trachea, bronchus and lung; Z32.02 Encounter for pregnancy test, result negative
CPT/HCPCS: 96376; 96361 ×4; 96365; 96366 ×3; 96372; 96375 ×2; 99285; 36415; 80053 ×2; 82150; 83605; 83690; 85025 ×2; 81001; 81025; 82365; 74176; G0378 ×3; J2405 ×2; J0696 ×3; J1885; J1644

== ENCOUNTER → 2022-02-12 | Outpatient (CLI) | payer OTHER ==
[2022-02-13 00:33] LABS: African American GFR (CKD) 109.9 (60.0-200.0); Albumin 4.2 g/dL (3.8-4.9); Albumin/Globulin Ratio 1.31 (1.60-3.17); BUN/Creat Ratio 8.75 Ratio (12.00-20.00); Calcium 9.3 mg/dL (8.7-10.3); Globulin 3.2 g/dL (1.6-3.3); Non-African American GFR(CKD) 94.8 (60.0-200.0); Potassium 3.2 mmol/L (3.5-5.5); Total Bilirubin 0.2 mg/dL (0.30-1.20); Total Protein 7.4 g/dL (6.2-8.2)
[2022-02-13 01:35] LABS: Basophils # (A) 0.07 X 10*3/uL (0.00-0.10); Basophils % (A) 0.7 %; Eosinophils % (A) 1.9 %; HGB 13.4 g/dL (12.0-15.0); Immature Grans, Automated 0.7 %; Lymphocytes # (A) 2.82 X 10*3/uL (0.90-5.00); Lymphocytes % (A) 26.6 %; MCH 30.7 pg (27.0-32.0); MCHC 33.5 g/dL (32.0-37.0); MCV 91.7 fL (80.0-97.0); Mean Platelet Volume 10.6 fL (9.5-12.2); Monocytes # (A) 0.73 X 10*3/uL (0.20-1.00); Monocytes % (A) 6.9 %; NRBC Per 100 WBC 0 /100 WBCS (0.0-0.0); Neutrophils # (A) 6.72 X 10*3/uL (1.80-7.70); Neutrophils % (A) 63.2 %; Platelet Count 274 X 10*3/uL (140-440); RBC 4.36 X 10*6/uL (4.10-5.20); RDW 14.9 % (11.5-14.5); WBC 10.61 X 10*3/uL (4.50-10.00)
== END | disposition home or self-care (01) ==
LOC: LABPAT 15:38
PROVIDERS: ATTEND Urology
DX: Z01.812 Encounter for preprocedural laboratory examination (principal); N20.0 Calculus of kidney
CPT/HCPCS: 80053; 85025

== ENCOUNTER 2022-02-18 09:20 | Observation (INO) | payer OTHER ==
[2022-02-15 11:32] VITALS: BMI 24.2
--- NOTE | 2022-02-17 15:45 | P.GSHP ---
History of Present Illness H&P Date: 02/17/22 36 yo female with a history of stones and recurrent uti SHe has had a persistent e coli uti and has a large staghorn calculus in the left kidney. She comes for a left pcnl. the risks, complications and alternatives have been discussed. - Constitutional Constitutional: Denies chills, Denies fever - EENT Eyes: denies blurred vision, denies pain Ears, nose, mouth and throat: Denies headache, Denies sore throat - Cardiovascular Cardiovascular: Denies chest pain, Denies shortness of breath - Respiratory Respiratory: Denies cough, Denies 7 - Gastrointestinal Gastrointestinal: Denies abdominal pain, Denies diarrhea, Denies nausea, Denies vomiting - Genitourinary (Female) Genitourinary: Denies dysuria, Denies hematuria - Genitourinary (Male) Genitourinary: Denies dysuria, Denies hematuria - Musculoskeletal Musculoskeletal: Denies myalgias - Integumentary Integumentary: Denies pruritus, Denies rash - Neurological Neurological: Denies numbness, Denies weakness - Psychiatric Psychiatric: Denies anxiety, Denies depression - Endocrine Endocrine: Denies fatigue, Denies weight change Past Medical History Past Medical History: Neurologic Disorder Additional Past Medical History / Comment(s): Hx of cleft lip and palate. Hx of Guillain-[place] Syndrome. Hx of and current kidney stones. History of Any Multi-Drug Resistant Organisms: ESBL Date of last positivie culture/infection: 02/07/22 ESBL E.coli MDRO Source:: Urine Past Surgical History: Section, Cholecystectomy, Tubal Ligation Additional Past Surgical History / Comment(s): Cystoscopy, surgery for kidney stones. Past Anesthesia/Blood Transfusion Reactions: No Reported Reaction Past Psychological History: No Psychological Hx Reported Smoking Status: Current every day smoker Past Alcohol Use History: None Reported Additional Past Alcohol Use History / Comment(s): Started smoking in 2005 and is a half a ppd smoker. Past Drug Use History: None Reported - Past Family History Father Family Medical History: No Reported History Mother Family Medical History: Cancer, Diabetes Mellitus Additional Family Medical History / Comment(s): Kidney stones, lung cancer. Mother is . Medications and Allergies Home Medications Medication Instructions Recorded Confirmed Type Nitrofurantoin Monohyd/M-Cryst 100 mg PO BID 02/15/22 02/15/22 History [Macrobid] Allergies Allergy/AdvReac Type Severity Reaction Status Date / Time Penicillins Allergy Rash/Hives Verified 02/15/22 11:36 Surgical - Exam - General well developed, well nourished, no distress - Eyes normal ocular movement, no icteric - ENT no hearing loss, no congestion - Neck no masses, trachea midline - Respiratory normal respiratory effort, clear to auscultation - Abdomen Abdomen: soft, non tender, no guarding, no rigid, no rebound - Integumentary no rash, no abnormal pigmentation - Neurologic no disoriented, no combative - Psychiatric oriented to time, oriented to person, oriented to place, speech is normal, memory intact Results - Imaging CT scan - abdomen: report reviewed, image reviewed CT scan - pelvis: report reviewed, image reviewed Assessment and Plan Assessment: Impression: infected staghorn left kidney. Plan: PCNL left
[~2022-02-18 09:20] MED LIST changes: +DEXAMETHASONE SOD PHOSPHATE 4 MG/ML 1 ML VIAL IV ONE; -GENTAMICIN 110 MG in SODIUM CHLORIDE 0.9% 100 ML IVPB PRN; +GENTAMICIN 90 MG in SODIUM CHLORIDE 0.9% 100 ML IVPB PRN; -HYDROmorphone 0.5 MG/0.5 ML SYRINGE IVP PRN; -LACTATED RINGERS 1,000 ML IV SCH; -LIDOCAINE 1% (10MG/ML) FOR IV START INTRADERMA PRN; +ONDANSETRON 4 MG/2 ML VIAL IVP ONE; -ONDANSETRON 4 MG/2 ML VIAL IVP PRN; +SCOPOLAMINE 1 MG/72 HR PATCH TRANSDERM ONE
--- NOTE | 2022-02-18 09:48 | XR ---
EXAMINATION TYPE: XR KUB DATE OF EXAM: 02/18/2022 COMPARISON: NONE HISTORY: Preop TECHNIQUE: One view abdominal series FINDINGS: The osseous structures are intact. The bowel gas pattern is nonspecific. Large staghorn calculus ove rlying the left kidney with multiple additional calculi measuring up to 7 mm. Multiple less than 5 mm right renal calculi. Surgical clips gallbladder fossa. Phleboliths in the pelvis. Chronic appearing deformity of the left iliac bone. IMPRESSION: 1. Bilateral nephrolithiasis large staghorn left renal calculus. 2. There is a deformity of the left iliac bone could be correlated with bone scan to exclude intraoss eous lesion if the patient has not had prior surgery.
[2022-02-18] MEDS: LACTATED RINGERS 1,000 ML IV SCH ×2 (10:20→12:46)
[2022-02-18] MEDS ORDERED: HYDROmorphone (PF) 1 MG/ML ONE (10:46)
[2022-02-18] MEDS ORDERED: MIDAZOLAM 2 MG/2 ML VIAL ONE (10:46)
[2022-02-18] MEDS ORDERED: LIDOCAINE 4% LTA KIT (4 ML) TOPICAL ONE (10:46)
[2022-02-18] MEDS ORDERED: ROCURONIUM 10 MG/ML (5 ML VIAL) IV ONE (10:46)
[2022-02-18] MEDS ORDERED: PROPOFOL 10 MG/ML 20 ML VIAL IV ONE (10:46)
[2022-02-18] MEDS ORDERED: NEOSTIGMINE 1 MG/ML 10 ML VIAL ONE (10:46)
[2022-02-18] MEDS ORDERED: GLYCOPYRROLATE 0.2 MG/ML 2 ML VIAL ONE (10:46)
[2022-02-18] MEDS ORDERED: SUCCINYLCHOLINE CHLORIDE 200 MG/10 ML VIAL IV ONE (10:46)
[2022-02-18] MEDS ORDERED: LIDOCAINE 2% INJ 20 MG/ML (2 ML VIAL) ONE (10:46)
[2022-02-18] MEDS ORDERED: fentaNYL (PF) 50 MCG/ML 2 ML AMP ONE (10:46)
[2022-02-18] MEDS ORDERED: IOPAMIDOL-370 50ML BTL MISCELLANE ONE (11:17)
[2022-02-18] MEDS ORDERED: ACETAMINOPHEN TAB 325 MG TAB PO PRN (12:17)
[2022-02-18] MEDS ORDERED: ONDANSETRON 4 MG/2 ML VIAL IVP PRN (12:17)
[2022-02-18] MEDS ORDERED: MAG HYDROX/AL HYDROX/SIMETH 30 ML CUP PO PRN (12:17)
[2022-02-18] MEDS ORDERED: HYDROmorphone PCA 10 MG/50 ML BAG IV PRN (12:18)
[2022-02-18] MEDS ORDERED: NALOXONE 0.4 MG/ML 1 ML VIAL IV PRN (12:18)
--- NOTE | 2022-02-18 12:24 | P.OP ---
Date of Procedure: 02/18/22 Preoperative Diagnosis: Infected Staghorn calculus left, large greater than 3 cm Postoperative Diagnosis: Same Procedure(s) Performed: Cystoscopy, placement of occluding balloon catheter left, percutaneous nephrostomy (Dr. ingram), percutaneous nephrostolithotomy at ultrasound, placement of 10 J nephrostomy Anesthesia: AMY Surgeon: Pipe Parish Estimated Blood Loss (ml): 50 Pathology: other (Stone) Condition: stable Disposition: PACU Indications for Procedure: Patient is 36. She has had recurrent urinary tract infections. These have always been E. coli. Computed tomography scan in June followed by one in November show a growing left renal pelvic stone. At time I saw are her computed tomography scan in December showed a large renal calculus filling the whole left renal pelvis extending into the calyceal system consistent with a staghorn calculus greater than 3 cm she comes for percutaneous nephrostolithotomy Description of Procedure: Patient is brought to the operating suite. She is given general anesthesia on the transport gurney. She's placed in a frog position with a sterile prep and drape. Cystoscopy Foroblique lens and 21-Tamazight sheath identifies chronic cystitis on the floor the bladder. The left ureteral orifice is identified and intubated with a 5-Tamazight occluding balloon catheter passed up into the kidney. The cystoscope was removed. A 16-Tamazight Oden catheters placed and secured to the ureteral catheter Patient is placed in prone position with care to airways and extremities. Dr. Ingram of radiology performed percutaneous access to a left middle pole posterior calyx. We then dilate the tract to 30-Tamazight and introduced the rigid sheath into the collecting system. A large stone, quite soft consistent with struvite is seen. It is treated with ultrasound break and the stone up and suction it out. After I remove all the renal pelvic stone I then pass a flexible nephroscope into the kidney. I passed a 1.9-Tamazight basket down the ureter and pull any fragments of fell down the ureter. I then move in each calyx and remove stones are identified. Then the procedure I do an intraoperative nephrostogram and all the calyces have been entered. There is one calcification in the lower pole calyx that is not accessible by the collecting system, must be renal tubular stones. Stones about 5 mm. Attention nephrostomy tube was then placed over the working wire. His secured the skin with 2-0 silk. The patient is awake and returned recovery in good condition. Blood loss is less than 50 mL. She tolerated procedure well be placed in the hospital postoperatively.
--- NOTE | 2022-02-18 12:30 | FL ---
EXAMINATION TYPE: FL Perc Nephrostomy New Access DATE OF EXAM: 02/18/2022 COMPARISON: NONE HISTORY: Left renal calculi Procedure had been discussed with the patient by Dr. Parish, risks, benefits, alternatives, were dis cussed and any questions were answered. Informed consent was obtained. The patient was in a semipro ne position prepped and draped on the OR table in the usual sterile fashion. Utilizing a 15 cm lengt h Chiba needle a single pass was made into a lower pole posterior calyx under fluoroscopic guidance. An 0.018 guidewire is passed through the needle and there was placement of a 6-Macedonian catheter sheat h system. There was conversion to a 0.035 system was performed with passage of a guidewire into the ureter utilizing a directional catheter. A second safety wire was placed. Remaining portion of pro cedure performed by . Approximately 5 minutes and 55 seconds of fluoroscopy was provided. 5 images submitted IMPRESSION: 1. Successful intraoperative left nephrostomy prior to nephrolithotomy.
[2022-02-18] MEDS: HYDROmorphone 0.5 MG/0.5 ML SYRINGE IVP PRN ×2 (12:32→12:50)
[2022-02-18] MEDS: KETOROLAC 15 MG/ML 1 ML VIAL IVP PRN (12:42)
[2022-02-18] MEDS: DEXTROSE 5%-0.45% NACL 1,000 ML IV SCH ×2 (14:37→21:54)
[2022-02-18] MEDS: NITROFURANTOIN MONOHYD/M-CRYST 100 MG CAP PO SCH (21:10)
[2022-02-19 06:48] VITALS: PULSE 57
[2022-02-19] MEDS ORDERED: HYDROcodone/APAP 5-325MG 1 EACH TAB PO PRN (07:49)
[2022-02-19] MEDS: NITROFURANTOIN MONOHYD/M-CRYST 100 MG CAP PO SCH (08:40)
[2022-02-19] MEDS: DEXTROSE 5%-0.45% NACL 1,000 ML IV SCH (11:51)
[2022-02-19 14:01] VITALS: BP 116/78; RESP 14; TEMP 98.2
[2022-02-19] MEDS: KETOROLAC 15 MG/ML 1 ML VIAL IVP PRN (14:41)
== END 2022-02-19 16:25 | disposition home or self-care (01) ==
LOC: OR 09:20 → 6NMEDSUR 12:10 → OR 02-19 07:58
PROVIDERS: ADMIT Urology; ATTEND Urology
DX: N20.0 Calculus of kidney (principal); N30.20 Other chronic cystitis without hematuria; F17.200 Nicotine dependence, unspecified, uncomplicated; Z87.442 Personal history of urinary calculi; Z87.440 Personal history of urinary (tract) infections; Z79.899 Other long term (current) drug therapy; Z88.0 Allergy status to penicillin; Z84.1 Family history of disorders of kidney and ureter
CPT/HCPCS: 84132; 82365; 50432; 74018; 52000; 50081; G0378; J1100; J2405; J1580; J1885 ×2; J1170 ×2; Q9967; 81025

== ENCOUNTER → 2022-04-23 | Outpatient (CLI) | payer OTHER ==
--- NOTE | 2022-04-23 12:21 | XR ---
EXAMINATION TYPE: XR KUB DATE OF EXAM: 04/23/2022 COMPARISON: NONE HISTORY: Renal stone TECHNIQUE: One view abdominal series FINDINGS: Cardiac deformity left iliac crest. There is multiple small left renal calculi with largest measuring 7 mm. There is a larger staghorn calculus occupying the entire left renal pelvis measuring 4 cm. Punctate subcentimeter right renal calculi suspected. There is evidence of previous cholecystectomy. Calcifications in the pelvis are likely vascular. IMPRESSION: 1. Large left-sided staghorn calculi within additional suspected bilateral renal calculi as discussed above.
== END | disposition home or self-care (01) ==
LOC: RADXRMAIN 11:44
PROVIDERS: ATTEND Urology
DX: N20.0 Calculus of kidney (principal)
CPT/HCPCS: 74018

== ENCOUNTER → 2022-04-29 | Outpatient (CLI) | payer OTHER ==
--- NOTE | 2022-04-30 11:50 | CT ---
EXAMINATION TYPE: CT abdomen pelvis wo con CT DLP: 1008.7 mGycm, Automated exposure control for dose reduction was used. DATE OF EXAM: 04/29/2022 6:59 PM COMPARISON: CT abdomen pelvis most recent from 01/15/2022 CLINICAL INDICATION:Female, 36 years old with history of N20.0 CALCULUS OF KIDNEY; Bilateral kidney s tones. TECHNIQUE: Axial CT of the abdomen and pelvis. Sagittal and coronal reformats were created on a [employer] workstation. Contrast used: None Oral contrast used: without Oral Contrast FINDINGS: LOWER CHEST: Unremarkable ABDOMEN LIVER: Unremarkable GALLBLADDER AND BILE DUCTS: Gallbladder surgically absent. PANCREAS: Unremarkable. SPLEEN: Unremarkable. ADRENAL GLANDS: Unremarkable. KIDNEYS AND URETERS: There is a left upper ureter 6 x 5 mm calculus with moderate left hydronephrosis . Bilateral nonobstructing calculi measuring up to 8 x 5 mm on the right and 10 x 7 mm on the left. N o evidence of right-sided hydronephrosis. PELVIS BLADDER: Unremarkable REPRODUCTIVE: Unremarkable. ABDOMEN & PELVIS STOMACH AND BOWEL: No evidence of bowel obstruction. PERITONEUM/RETROPERITONEUM: No evidence of pneumoperitoneum or free fluid. . VASCULATURE: No evidence of aortic aneurysm. MUSCULOSKELETAL: No acute osseous abnormalities LYMPH NODES: No gross evidence for lymphadenopathy. SOFT TISSUE/ABDOMINAL WALL: Unremarkable IMPRESSION: New Mild left hydronephrosis secondary obstructing 6 x 5 mm upper ureteral calculus. Additional nonob structing bilateral renal calculi. A Yellow level critical message alert has been initiated for Pipe Parish MD via the [employer] Critical Results System on 04/30/2022 11:48 AM. This message alert has been sent to Pipe Parish MD via the preferences provided by the clinician for the receipt of Radiology Critical Findings. [employer] age ID [id number].
== END | disposition home or self-care (01) ==
LOC: RADCTMAIN 18:22
PROVIDERS: ATTEND Urology
DX: N13.2 Hydronephrosis with renal and ureteral calculous obstruction (principal)
CPT/HCPCS: 74176

== ENCOUNTER → 2022-05-09 | Outpatient (CLI) | payer OTHER ==
[2022-05-09 19:27] LABS: Basophils # (A) 0.07 X 10*3/uL (0.00-0.10); Basophils % (A) 0.9 %; Eosinophils # (A) 0.23 X 10*3/uL (0.04-0.35); Eosinophils % (A) 2.9 %; HCT 45.3 % (37.2-46.3); HGB 14.8 g/dL (12.0-15.0); Immature Grans, Automated 0.4 %; Lymphocytes % (A) 28.9 %; MCH 30.1 pg (27.0-32.0); MCHC 32.7 g/dL (32.0-37.0); MCV 92.1 fL (80.0-97.0); Mean Platelet Volume 9.9 fL (9.5-12.2); Monocytes # (A) 0.49 X 10*3/uL (0.20-1.00); Monocytes % (A) 6.1 %; NRBC Per 100 WBC 0 /100 WBCS (0.0-0.0); Neutrophils # (A) 4.85 X 10*3/uL (1.80-7.70); Neutrophils % (A) 60.8 %; Platelet Count 364 X 10*3/uL (140-440); RBC 4.92 X 10*6/uL (4.10-5.20); RDW 15.1 % (11.5-14.5); WBC 7.97 X 10*3/uL (4.50-10.00)
[2022-05-09 19:38] LABS: African American GFR (CKD) 87.3 (60.0-200.0); Anion Gap 12.5 mmol/L (10.00-18.00); BUN/Creat Ratio 11.67 Ratio (12.00-20.00); Blood Urea Nitrogen 11.3 mg/dL (9.0-27.0); Calcium 9.6 mg/dL (8.7-10.3); Carbon Dioxide 24.6 mmol/L (20.0-27.5); Non-African American GFR(CKD) 75.3 (60.0-200.0); Potassium 4.2 mmol/L (3.5-5.5)
== END | disposition home or self-care (01) ==
LOC: LABPAT 12:57
PROVIDERS: ATTEND Urology
DX: Z01.812 Encounter for preprocedural laboratory examination (principal); N20.1 Calculus of ureter
CPT/HCPCS: 80048; 85025

== ENCOUNTER 2022-05-15 06:29 | Day surgery (SDC) | payer OTHER ==
[2022-05-10 13:32] VITALS: BMI 24.2
--- NOTE | 2022-05-14 12:40 | P.GSHP ---
History of Present Illness H&P Date: 05/14/22 36 yo female wth a history of stones and reucrrent uti secondary to the stones. She had a pcnl last year on the left She recently developed left flank pain and has a new mid ureteral stone at 6 mm. It is causing pain with obstruction She also has two small renal stones that i am not certain whether they are calyceal or tubular stones. She comes for a left ureteroscopy and laser lithotripsy to the ureteral stone on the left and possibly the renal stones. - Constitutional Constitutional: Denies chills, Denies fever - EENT Eyes: denies blurred vision, denies pain Ears, nose, mouth and throat: Denies headache, Denies sore throat - Cardiovascular Cardiovascular: Denies chest pain, Denies shortness of breath - Respiratory Respiratory: Denies cough, Denies 7 - Gastrointestinal Gastrointestinal: Denies abdominal pain, Denies diarrhea, Denies nausea, Denies vomiting - Genitourinary (Female) Genitourinary: Denies dysuria, Denies hematuria - Genitourinary (Male) Genitourinary: Denies dysuria, Denies hematuria - Musculoskeletal Musculoskeletal: Denies myalgias - Integumentary Integumentary: Denies pruritus, Denies rash - Neurological Neurological: Denies numbness, Denies weakness - Psychiatric Psychiatric: Denies anxiety, Denies depression - Endocrine Endocrine: Denies fatigue, Denies weight change Past Medical History Past Medical History: Neurologic Disorder Additional Past Medical History / Comment(s): Hx of cleft lip and palate. Hx of Guillain-[place] Syndrome. Hx kidney stones. History of Any Multi-Drug Resistant Organisms: ESBL Date of last positivie culture/infection: 02/07/22 ESBL E.Coli MDRO Source:: URINE Past Surgical History: Section, Cholecystectomy, Tubal Ligation Additional Past Surgical History / Comment(s): Cystoscopy, surgery for kidney stones, LEFT NEPHROSTOLITHOTOMY Past Anesthesia/Blood Transfusion Reactions: No Reported Reaction Past Psychological History: No Psychological Hx Reported Smoking Status: Current every day smoker Past Alcohol Use History: Occasional Past Drug Use History: None Reported - Past Family History Father Family Medical History: No Reported History Mother Family Medical History: Cancer, Diabetes Mellitus Additional Family Medical History / Comment(s): Kidney stones, lung cancer. Mother is . Medications and Allergies Home Medications Medication Instructions Recorded Confirmed Type Nitrofurantoin Monohyd/M-Cryst 100 mg PO BID 02/15/22 05/10/22 History [Macrobid] Allergies Allergy/AdvReac Type Severity Reaction Status Date / Time Penicillins Allergy Rash/Hives Verified 05/10/22 13:25 Results - Imaging Abdominal x-ray: report reviewed, image reviewed CT scan - abdomen: report reviewed, image reviewed CT scan - pelvis: report reviewed, image reviewed Assessment and Plan Assessment: Impression: left ureteral stone and renal stones Plan Left ureteroscopy with laser lithotripsy
[~2022-05-15 06:29] MED LIST changes: +CIPROFLOXACIN/DEXTROSE PMX 400 MG in DEXTROSE/WATER 1 200ML.BAG IVPB PRN; -DEXAMETHASONE SOD PHOSPHATE 4 MG/ML 1 ML VIAL IV ONE; +GENTAMICIN 100 MG in SODIUM CHLORIDE 0.9% 100 ML IVPB PRN; -GENTAMICIN 90 MG in SODIUM CHLORIDE 0.9% 100 ML IVPB PRN; -MIDAZOLAM 2 MG/2 ML VIAL IV PRN; -ONDANSETRON 4 MG/2 ML VIAL IVP ONE; -SCOPOLAMINE 1 MG/72 HR PATCH TRANSDERM ONE
[2022-05-15] MEDS ORDERED: HYDROmorphone 0.5 MG/0.5 ML SYRINGE IVP PRN (07:15)
[2022-05-15] MEDS ORDERED: LACTATED RINGERS 1,000 ML IV SCH (07:15)
[2022-05-15] MEDS ORDERED: ONDANSETRON 4 MG/2 ML VIAL IVP ONE (07:15)
[2022-05-15] MEDS ORDERED: MIDAZOLAM 2 MG/2 ML VIAL IV PRN (07:15)
[2022-05-15] MEDS ORDERED: DEXAMETHASONE SOD PHOSPHATE 4 MG/ML 1 ML VIAL IV ONE (07:15)
[2022-05-15] MEDS ORDERED: HYDROmorphone (PF) 1 MG/ML ONE (07:49)
[2022-05-15] MEDS ORDERED: LIDOCAINE 2% INJ 20 MG/ML (2 ML VIAL) ONE (07:49)
[2022-05-15] MEDS ORDERED: PROPOFOL 10 MG/ML 20 ML VIAL IV ONE (07:49)
[2022-05-15] MEDS ORDERED: fentaNYL (PF) 50 MCG/ML 2 ML AMP ONE (07:49)
[2022-05-15] MEDS ORDERED: MIDAZOLAM 2 MG/2 ML VIAL ONE (07:49)
[2022-05-15] MEDS ORDERED: KETOROLAC 30 MG/ML 1 ML VIAL ONE (07:49)
--- NOTE | 2022-05-15 08:11 | XR ---
EXAMINATION TYPE: XR KUB DATE OF EXAM: 05/15/2022 6:44 AM INDICATION: Patient age:Female; 36 years old; Reason for study: N20.1 left ureteral stone; COMPARISON: None. TECHNIQUE: One radiographic view of the abdomen was obtained. FINDINGS: Left ureteral calculus seen on prior CT on 04/29/2022 is not definitively visualized. Bilate ral calcific densities project over the kidneys similar prior CT. bowel gas pattern. Osseous structures are intact. IMPRESSION: 1. Left mid ureter calculus is not definitively visualized. 2. Multiple nonobstructing renal calculi as seen on prior CT.
[2022-05-15] MEDS ORDERED: LACTATED RINGERS 1,000 ML IV ONE (09:02)
--- NOTE | 2022-05-15 09:25 | FL ---
EXAMINATION TYPE: FL guidance operating room DATE OF EXAM: 05/15/2022 HISTORY: Fluoroscopy time 26 seconds of fluoroscopy provided. IMPRESSION: 1. Fluoroscopy time.
[2022-05-15 09:31] VITALS: TEMP 96.8
--- NOTE | 2022-05-15 09:43 | P.OP ---
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 Stone basketing. Resection of tumor at bladder neck urethra ( probable condyloma) Anesthesia: AMY Surgeon: Pipe Parish Estimated Blood Loss (ml): 10 Pathology: other (Stone, bladder urethral mass) Condition: stable Disposition: PACU Indications for Procedure: The patient is 36. She has a history of recurring urinary tract infections and stones. She had a percutaneous nephrostolithotomy left last summer. There is one stone in a calyceal diverticulum of that as unable to identify and remove them. She has grown some more stones in her left system over the summer. She passed a 6 mm stone in the proximal ureter. She was treated with antibiotics and clear the infection but the stone remains. She also has 2 stones in calyceal diverticulum the kidney that I'll remove the same time. Description of Procedure: Patient brought to the operating suite. Given a general anesthetic. Upon inspection of the urethra and vagina there is a mass probable condyloma in the urethra as well as one on the labia. I inserted the cystoscope into the bladder. There are condyloma on the trigone. The left ureteral orifice is identified and intubated with an 035 wire up into the kidney. Over the wires passed a 10-12-Jzysyu reentry sheath into the mid ureter. The stone in the pr oximal ureter is identified and with the flexible ureteroscope the left ureteral stone is broken with laser. I passed the ureteroscope up into the kidney. 2 tiny stones are seen and calyces are destroyed with the laser, 200 . I see 2 calyceal diverticuli that the next have to be incised so that I can approach the stone. Once the Size of the calyceal diverticulum I then laser the stones. I basket the largest fragments out. Then of the procedure other than sand and no remaining stones. The calyceal neck are opened up. Due to pullout ureteroscopy and see no remaining stones or significant edema and the ureter I introduced the resectoscope and remove the tumor on the trigone and the urethra. It to be resected or cauterized. I then remove the tumor on the labia and closed the incision with 3-0 chromic. Then of the procedure and a 16-Marshallese Oden catheters introduced in the bladder. The patient's awake and returned recovery room good condition. The stones and tumor (probable condyloma) have been sent to pathology. The patient is awake and returned. Blood loss is approximately 10 mL.
[2022-05-15 10:32] VITALS: BP 113/79; RESP 18
[2022-05-15 10:55] VITALS: PULSE 68
== END 2022-05-15 11:03 | disposition home or self-care (01) ==
LOC: OR 06:29
PROVIDERS: ATTEND Urology
DX: N20.2 Calculus of kidney with calculus of ureter (principal); A63.0 Anogenital (venereal) warts; N30.90 Cystitis, unspecified without hematuria; Z87.440 Personal history of urinary (tract) infections; Z87.730 Personal history of (corrected) cleft lip and palate; Z16.24 Resistance to multiple antibiotics; Z16.12 Extended spectrum beta lactamase (ESBL) resistance; Z98.51 Tubal ligation status; Z90.49 Acquired absence of other specified parts of digestive tract; Z98.890 Other specified postprocedural states; F17.200 Nicotine dependence, unspecified, uncomplicated; F10.20 Alcohol dependence, uncomplicated; Z83.3 Family history of diabetes mellitus; Z80.1 Family history of malignant neoplasm of trachea, bronchus and lung; Z84.2 Family history of other diseases of the genitourinary system; Z79.899 Other long term (current) drug therapy; Z88.0 Allergy status to penicillin
CPT/HCPCS: 81025; 88305; 82365; 74018; 52353; 52235; C1769; J2250; J1100; J2405; J3010; J1885; J0744; J1580; J1170; J2704; J2001

== ENCOUNTER 2022-09-23 11:28 | Emergency (ER) | payer OTHER ==
--- NOTE | 2022-09-23 13:35 | ED ---
Back Pain HPI - General Source: patient, RN notes reviewed Limitations: no limitations - History of Present Illness MD Complaint: other (right flank pain) <Shobha Field - Last Filed: 09/23/22 13:32> <Alfa Mandel - Last Filed: 09/23/22 18:58> - General Chief Complaint: Abdominal Pain Stated Complaint: rt side abd pain Time Seen by Provider: 09/23/22 13:32 - History of Present Illness Initial Comments: This is a 37-year-old female who presents to the emergency department for right flank pain. States that this started earlier this morning. Reports associated nausea. She has a history of recurrent UTIs and kidney stones, and states that the symptoms feel the same. She has also required surgical intervention for management of these kidney stones in the past. (Shobha Field) Dictation was produced using [employer] dictation software. please excuse any gramm atical, word or spelling errors. Chief Complaint: 37-year-old female presents with 12 hours of right-sided flank pain History of Present Illness: Patient 37-year-old female she has past medical history of kidney stones. She presents with waxing waning symptoms of right- sided flank pain. Patient has a fever. No dysuria. She states that her symptoms remind her of kidney stone. Denies any fever, chills or night sweats. No nausea vomiting. No abdominal pain The ROS documented in this emergency department record has been reviewed and confirmed by me. Those systems with pertinent positive or negative responses have been documented in the HPI. All other systems are other negative and/or noncontributory. (Alfa Mandel) - Related Data Previous Rx's Medication Instructions Recorded Cefpodoxime Proxetil [Vantin] 200 mg PO Q12HR 10 Days #20 tab 09/23/22 HYDROcodone/APAP 5-325MG [[place] 1 tab PO Q6HR PRN 3 Days #12 tab 09/23/22 5-325] Allergies Allergy/AdvReac Type Severity Reaction Status Date / Time Penicillins Allergy Rash/Hives Verified 09/23/22 17:18 Review of Systems ROS Other: All systems not noted in ROS Statement are negative. <Shobha Field - Last Filed: 09/23/22 13:32> ROS Other: All systems not noted in ROS Statement are negative. <Alfa Mandel - Last Filed: 09/23/22 18:58> ROS Statement: Those systems with pertinent positive or pertinent negative responses have been documented in the HPI. Past Medical History Past Medical History: Neurologic Disorder Additional Past Medical History / Comment(s): Hx of cleft lip and palate. Hx of Guillain-[place] Syndrome. Hx kidney stones. History of Any Multi-Drug Resistant Organisms: None Reported Date of last positivie culture/infection: 02/07/22 ESBL E.Coli MDRO Source:: Urine Past Surgical History: Section, Cholecystectomy, Tubal Ligation Additional Past Surgical History / Comment(s): Cystoscopy, surgery for kidney stones. Past Anesthesia/Blood Transfusion Reactions: No Reported Reaction Past Psychological History: No Psychological Hx Reported Smoking Status: Current every day smoker Past Alcohol Use History: Occasional Past Drug Use History: None Reported - Past Family History Father Family Medical History: No Reported History Mother Family Medical History: Cancer, Diabetes Mellitus Additional Family Medical History / Comment(s): Kidney stones, lung cancer. Mother is . <Shobha Field - Last Filed: 09/23/22 13:32> General Exam Limitations: no limitations <Shobha Field - Last Filed: 09/23/22 13:32> <Alfa Mandel - Last Filed: 09/23/22 18:58> - General Exam Comments Initial Comments: Visual Physical Exam Vital signs reviewed General: Well-appearing, nontoxic, in distress secondary to pain Head: Normocephalic, atraumatic Eyes: PERRLA, EOMI ENT: Airway patent Chest: Nonlabored breathing Skin: No visual rash, normal skin tone Neuro: Alert and oriented 3 Musculoskeletal: No gross abnormalities (Shobha Field) PHYSICAL EXAM: General Impression: Alert and oriented x3, not in acute distress HEENT: Normocephalic atraumatic, extra-ocular movements intact, pupils equal and reactive to light bilaterally, mucous membranes moist. Cardiovascular: Heart regular rate and rhythm Chest: Able to complete full sentences, no retractions, no tachypnea Abdomen: abdomen soft, non-tender, non-distended, no organomegaly Musculoskeletal: Pulses present and equal in all extremities, no peripheral edema, positive CVA pain Motor: no focal deficits noted Neurological: CN II-XII grossly intact, no focal motor or sensory deficits noted Skin: Intact with no visualized rashes Psych: Normal affect and mood (Alfa Mandel) Course Vital Signs 09/23/22 12:01 Temperature 98.1 F Pulse Rate 97 Respiratory 20 Rate Blood Pressure 134/83 O2 Sat by Pulse 100 Oximetry Medical Decision Making - Lab Data Result diagrams: 09/23/22 14:08 09/23/22 14:08 <Alfa Mandel - Last Filed: 09/23/22 18:58> - Medical Decision Making Was pt. sent in by a medical professional or institution (, PA, MANUAL MACHINIST, urgent care, hospital, or senior care...) When possible be specific @ -No Did you speak to anyone other than the patient for history (EMS, parent, family, police, friend...)? What history was obtained from this source @ -No Did you review nursing and triage notes (agree or disagree)? Why? @ -I reviewed and agree with nursing and triage notes Were old charts reviewed (outside hosp., previous admission, EMS record, old EKG, old radiological studies, urgent care reports/EKG's, senior care records)? Report findings @ -No old charts were reviewed Differential Diagnosis (chest pain, altered mental status, abdominal pain women, abdominal pain men, vaginal bleeding, musculoskeletal, weakness, fever, dyspnea, syncope, headache, dizziness, GI bleed, back pain, seizure, CVA, palpatations, mental health)? @ -Differential Abdominal Pain Women: Appendicitis, Cholecystitis, diverticulosis, ischemic bowel, pancreatitis, hepatitis, UTI, gastroenteritis, AAA, incarcerated hernia, bowel obstruction, constipation, inflammatory bowel, hepatitis, peptic ulcer disease, splenic infarction, perforated viscus, vulvitis, ovarian torsion, PID, kidney stone, placenta abruption, this is not meant to be an all-inclusive list EKG interpreted by me (3pts min.). @ -None done X-rays interpreted by me (1pt min.). @ -None done CT interpreted by me (1pt min.). @ -None done U/S interpreted by me (1pt. min.). @ -Mild hydronephrosis on the right kidney What testing was considered but not performed or refused? (CT, X-rays, U/S, labs)? Why? @ -None What meds were considered but not given or refused? Why? @ -None Did you discuss the management of the patient with other professionals (professionals i.e. , PA, MANUAL MACHINIST, lab, RT, psych nurse, social sciences professor, treasury director, teacher, financial compliance officer, bottle caser)? Give summary @ -No Was smoking cessation discussed for >3mins.? @ -No Was critical care preformed (if so, how long)? @ -No Were there social determinants of health that impacted care today? How? (Cristel elessness, low income, unemployed, alcoholism, drug addiction, transportation, low edu. Level, literacy, decrease access to med. care, fci, rehab)? @ -No Was there de-escalation of care discussed even if they declined (Discuss DNR or withdrawal of care, Hospice)? DNR status @ -No What co-morbidities impacted this encounter? (DM, HTN, Smoking, COPD, CAD, Cancer, CVA, ARF, Chemo, Hep., AIDS, mental health diagnosis, sleep apnea, morbid obesity)? @ -None Was patient admitted / discharged? Hospital course, mention meds given and route, prescriptions, significant lab abnormalities, going to OR and other pertinent info. @ -37-year-old female presents with right-sided flank pain. She has a history of kidney stones states her symptoms feel like a kidney stone. She does see a urologist. Vital signs are stable. Patient afebrile. Denies any constitutional symptoms. No nausea or vomiting. Physical examination is benign. Laboratory evaluation shows leukocytosis of 18.4. Metabolic panel is unremarkable. Urinalysis is positive for nitrite positive UTI. There are 3 red blood cells. She does have hydronephrosis on the right kidney. There is concern for UTI with infected stone. She does have white count of 18.4. Recommended patient be admitted for IV antibiotics however she would prefer to be discharge. She does report that she is able to return to the emergency department if she starts to feel worse. Patient understandable and agreeable with plan. Patient discharged. She is given prescription for antibiotics and analgesics. Undiagnosed new problem with uncertain prognosis? @ -No Drug Therapy requiring intensive monitoring for toxicity (Heparin, Nitro, Insulin, Cardizem)? @ -No Were any procedures done? @ -No Diagnosis/symptom? Acute, or Chronic, or Acute on Chronic? Uncomplicated (without systemic symptoms) or Complicated (systemic symptoms)? @ -1. Kidney stone, 2. Urinary tract infection Side effects of treatment? @ -No Exacerbation, Progression, or Severe Exacerbation? @ -No Poses a threat to life or bodily function? How? (Chest pain, [place], ND, pneumonia, PE, COPD, DKA, ARF, appy, cholecystitis, CVA, Diverticulitis, Homicidal, Suicidal, threat to staff... and all critical care pts) @ -yes (Alfa Mandel) - Lab Data Lab Results 09/23/22 09/23/22 09/23/22 Range/Units 14:08 14:08 14:08 WBC 18.4 H (3.8-10.6) k/uL RBC 4.85 (3.80-5.40) m/uL Hgb 14.4 (11.4-16.0) gm/dL Hct 43.7 (34.0-46.0) % MCV 90.1 (80.0-100.0) fL MCH 29.7 (25.0-35.0) pg MCHC 33.0 (31.0-37.0) g/dL RDW 14.7 (11.5-15.5) % Plt Count 313 (150-450) k/uL MPV 7.7 Neutrophils % 89 % Lymphocytes % 6 % Monocytes % 3 % Eosinophils % 1 % Basophils % 0 % Neutrophils # 16.4 H (1.3-7.7) k/uL Lymphocytes # 1.2 (1.0-4.8) k/uL Monocytes # 0.5 (0-1.0) k/uL Eosinophils # 0.2 (0-0.7) k/uL Basophils # 0.0 (0-0.2) k/uL Sodium 141 (137-145) mmol/L Potassium 4.0 (3.5-5.1) mmol/L Chloride 107 (98-107) mmol/L Carbon Dioxide 26 (22-30) mmol/L Anion Gap 8 mmol/L BUN 9 (7-17) mg/dL Creatinine 0.80 (0.52-1.04) mg/dL Est GFR (CKD-EPI)AfAm >90 (>60 ml/min/1.73 sqM) Est GFR (CKD-EPI)NonAf >90 (>60 ml/min/1.73 sqM) Glucose 91 (74-99) mg/dL Plasma Lactic Acid Sung 1.3 (0.7-2.0) mmol/L Calcium 9.4 (8.4-10.2) mg/dL Total Bilirubin 0.6 (0.2-1.3) mg/dL AST 25 (14-36) U/L ALT 17 (4-34) U/L Alkaline Phosphatase 142 H (38-126) U/L Total Protein 8.0 (6.3-8.2) g/dL Albumin 4.5 (3.5-5.0) g/dL Urine Color Urine Appearance (Clear) Urine pH (5.0-8.0) Ur Specific [place] (1.001-1.035) Urine Protein (Negative) Urine Glucose (UA) (Negative) Urine Ketones (Negative) Urine Blood (Negative) Urine Nitrite (Negative) Urine Bilirubin (Negative) Urine Urobilinogen (<2.0) mg/dL Ur Leukocyte Esterase (Negative) Urine RBC (0-5) /hpf Urine WBC (0-5) /hpf Ur Squamous Epith Cells (0-4) /hpf Urine Bacteria (None) /hpf Urine Mucus (None) /hpf 09/23/22 Range/Units 15:46 WBC (3.8-10.6) k/uL RBC (3.80-5.40) m/uL Hgb (11.4-16.0) gm/dL Hct (34.0-46.0) % MCV (80.0-100.0) fL MCH (25.0-35.0) pg MCHC (31.0-37.0) g/dL RDW (11.5-15.5) % Plt Count (150-450) k/uL MPV Neutrophils % % Lymphocytes % % Monocytes % % Eosinophils % % Basophils % % Neutrophils # (1.3-7.7) k/uL Lymphocytes # (1.0-4.8) k/uL Monocytes # (0-1.0) k/uL Eosinophils # (0-0.7) k/uL Basophils # (0-0.2) k/uL Sodium (137-145) mmol/L Potassium (3.5-5.1) mmol/L Chloride (98-107) mmol/L Carbon Dioxide (22-30) mmol/L Anion Gap mmol/L BUN (7-17) mg/dL Creatinine (0.52-1.04) mg/dL Est GFR (CKD-EPI)AfAm (>60 ml/min/1.73 sqM) Est GFR (CKD-EPI)NonAf (>60 ml/min/1.73 sqM) Glucose (74-99) mg/dL Plasma Lactic Acid Sung (0.7-2.0) mmol/L Calcium (8.4-10.2) mg/dL Total Bilirubin (0.2-1.3) mg/dL AST (14-36) U/L ALT (4-34) U/L Alkaline Phosphatase (38-126) U/L Total Protein (6.3-8.2) g/dL Albumin (3.5-5.0) g/dL Urine Color Yellow Urine Appearance Cloudy H (Clear) Urine pH 6.5 (5.0-8.0) Ur Specific [place] 1.010 (1.001-1.035) Urine Protein Trace H (Negative) Urine Glucose (UA) Negative (Negative) Urine Ketones Negative (Negative) Urine Blood Large H (Negative) Urine Nitrite Positive H (Negative) Urine Bilirubin Negative (Negative) Urine Urobilinogen <2.0 (<2.0) mg/dL Ur Leukocyte Esterase Large H (Negative) Urine RBC 3 (0-5) /hpf Urine WBC 82 H (0-5) /hpf Ur Squamous Epith Cells 4 (0-4) /hpf Urine Bacteria Rare H (None) /hpf Urine Mucus Rare H (None) /hpf Disposition <Shobha Field - Last Filed: 09/23/22 13:32> Is patient prescribed a controlled substance at d/c from ED?: Yes If prescribed controlled substance>3 days was MAPS reviewed?: Prescribed <3 Days Time of Disposition: 18:58 <Alfa Mandel - Last Filed: 09/23/22 18:58> Clinical Impression: UTI (urinary tract infection), Kidney stone Disposition: HOME SELF-CARE Condition: Fair Instructions (If sedation given, give patient instructions): Urinary Tract Infection in Women (ED), Kidney Stones (ED) Prescriptions: HYDROcodone/APAP 5-325MG [[place] 5-325] 1 tab PO Q6HR PRN 3 Days #12 tab PRN Reason: Severe Pain Cefpodoxime Proxetil [Vantin] 200 mg PO Q12HR 10 Days #20 tab Referrals: Jacquelin Sims MD [Primary Care Provider] - 1-2 days Pipe Parish MD [STAFF PHYSICIAN] - 1-2 days
[2022-09-23 14:21] LABS: Basophils % (A) 0 %; Eosinophils # (A) 0.2 k/uL (0-0.7); Eosinophils % (A) 1 %; HCT 43.7 % (34.0-46.0); HGB 14.4 gm/dL (11.4-16.0); Lymphocytes # (A) 1.2 k/uL (1.0-4.8); Lymphocytes % (A) 6 %; MCH 29.7 pg (25.0-35.0); MCV 90.1 fL (80.0-100.0); Mean Platelet Volume 7.7; Monocytes # (A) 0.5 k/uL (0-1.0); Monocytes % (A) 3 %; Neutrophils # (A) 16.4 k/uL (1.3-7.7); Neutrophils % (A) 89 %; Platelet Count 313 k/uL (150-450); RBC 4.85 m/uL (3.80-5.40); RDW 14.7 % (11.5-15.5); WBC 18.4 k/uL (3.8-10.6)
[2022-09-23 14:36] LABS: ALT 17 U/L (4-34); AST 25 U/L (14-36); African American GFR (CKD) >90 (>60 ml/min/1.73 sqM); Albumin 4.5 g/dL (3.5-5.0); Alkaline Phosphatase 142 U/L (38-126); Anion Gap 8 mmol/L; Blood Urea Nitrogen 9 mg/dL (7-17); Calcium 9.4 mg/dL (8.4-10.2); Carbon Dioxide 26 mmol/L (22-30); Chloride 107 mmol/L (98-107); Glucose 91 mg/dL (74-99); Non-African American GFR(CKD) >90 (>60 ml/min/1.73 sqM); Sodium 141 mmol/L (137-145); Total Bilirubin 0.6 mg/dL (0.2-1.3)
[2022-09-23 16:11] LABS: Appearance,Urine Cloudy (Clear); Bacteria,Urine Rare /hpf; Bilirubin,Urine Negative (Negative); Blood,Urine Large (Negative); Color,Urine Yellow; Glucose,Urine (UA) Negative (Negative); Ketones,Urine Negative (Negative); Leukocyte Esterase,Urine Large (Negative); Mucus,Urine Rare /hpf; Nitrite,Urine Positive (Negative); PH, Urine 6.5 (5.0-8.0); Protein,Urine Trace (Negative); RBC,Urine 3 /hpf (0-5); Squamous Epithelial Cell,Urine 4 /hpf (0-4); Urobilinogen,Urine <2.0 mg/dL (<2.0); WBC,Urine 82 /hpf (0-5)
[2022-09-23] MEDS ORDERED: cefTRIAXone IN SWFI 1,000 MG/10 ML SYRINGE IVP STA (16:43)
[2022-09-23] MEDS ORDERED: SODIUM CHLORIDE 0.9% 1,000 ML IV STA (16:52)
[2022-09-23] MEDS ORDERED: MORPHINE SULFATE 4 MG/ML SYRINGE IV STA (18:20)
--- NOTE | 2022-09-23 18:25 | US ---
EXAMINATION TYPE: US kidneys/renal and bladder DATE OF EXAM: 09/23/2022 COMPARISON: 10/15/18, CT: 04/29/22 CLINICAL INDICATION: Female, 37 years old with history of flank pain; Right flank pain x 12 hours. Hx of renal stones EXAM MEASUREMENTS: Right Kidney: 15.3 x 6.5 x 6.4 cm Left Kidney: 12.3 x 4.7 x 6.9 cm Right Kidney: Multiple hyperechoic foci seen. Largest = 0.6 x 0.9 x 0.5cm Moderate hydronephrosis vis ualized Left Kidney: Hyperechoic focus seen in mid pole measuring 0.7 x 0.7 x 0.6cm Bladder: wnl Bilateral Jets seen: Yes There is no evidence for hydronephrosis at this point in time. No nephrolithiasis is seen. No cam s are identified. The urinary bladder is anechoic. Bilateral ureteral jets are seen. IMPRESSION: 1. Mild right hydronephrosis. New from prior CT. 2. No left hydronephrosis. 3. Bilateral renal calculi
[2022-09-23 19:01] VITALS: BP 122/82; PULSE 76; RESP 16; TEMP 98.7
== END 2022-09-23 19:03 | disposition home or self-care (01) ==
LOC: EC 11:28
DX: N39.0 Urinary tract infection, site not specified (principal); B96.20 Unspecified Escherichia coli [E. coli] as the cause of diseases classified elsewhere; N13.2 Hydronephrosis with renal and ureteral calculous obstruction; F17.200 Nicotine dependence, unspecified, uncomplicated; Z88.0 Allergy status to penicillin
CPT/HCPCS: 99284 ×2; 96374 ×2; 96375 ×2; 96361 ×2; 36415; 80053; 83605; 85025; 81001; 87086; 87077; 87186; 76770; J2270; J0696

== ENCOUNTER → 2022-09-26 | Outpatient (CLI) | payer OTHER ==
--- NOTE | 2022-09-26 09:55 | XR ---
EXAMINATION TYPE: XR KUB DATE OF EXAM: 09/26/2022 COMPARISON: 06/20/2022 HISTORY: Pain TECHNIQUE: One view abdominal series FINDINGS: The osseous structures are intact. The bowel gas pattern is nonspecific. Right kidney: There is a 9.5 mm right renal pelvic UPJ calcification. 6 mm lower pole right renal lynn culus and multiple punctate 1 to 2 mm mid pole calculi totaling approximately 10. Left kidney: Multiple punctate 1 to 2 mm calculi. Chronic left iliac bone deformity. Vascular calcifications pelvis. Osseous structures intact. IMPRESSION: 1. Bilateral nephrolithiasis with right UPJ calculus measuring 9.5 mm
--- NOTE | 2022-09-27 09:24 | P.GSHP ---
History of Present Illness H&P Date: 09/27/22 37 yo female with a history of stones. She presented to the er 09/23 with right flank pain. AN us showed a probable stone with mild right hydronephrosis. She came to see me.. I did a kub and it shoed a 9mm right upj stone. We discussed treatment options and she comes for eswl right because of persistent discomfort. She has been on culture specific ab for a uti but has not appeared septic. - Constitutional Constitutional: Denies chills, Denies fever - EENT Eyes: denies blurred vision, denies pain Ears, nose, mouth and throat: Denies headache, Denies sore throat - Cardiovascular Cardiovascular: Denies chest pain, Denies shortness of breath - Respiratory Respiratory: Denies cough, Denies 7 - Gastrointestinal Gastrointestinal: Denies abdominal pain, Denies diarrhea, Denies nausea, Denies vomiting - Genitourinary (Female) Genitourinary: Denies dysuria, Denies hematuria - Genitourinary (Male) Genitourinary: Denies dysuria, Denies hematuria - Musculoskeletal Musculoskeletal: Denies myalgias - Integumentary Integumentary: Denies pruritus, Denies rash - Neurological Neurological: Denies numbness, Denies weakness - Psychiatric Psychiatric: Denies anxiety, Denies depression - Endocrine Endocrine: Denies fatigue, Denies weight change Past Medical History Past Medical History: Neurologic Disorder Additional Past Medical History / Comment(s): Hx of cleft lip and palate. Hx of Guillain-[place] Syndrome. Hx kidney stones. History of Any Multi-Drug Resistant Organisms: None Reported Date of last positivie culture/infection: 02/07/22 ESBL E.Coli MDRO Source:: Urine Past Surgical History: Section, Cholecystectomy, Tubal Ligation Additional Past Surgical History / Comment(s): Cystoscopy, surgery for kidney stones. Past Anesthesia/Blood Transfusion Reactions: No Reported Reaction Past Psychological History: No Psychological Hx Reported Smoking Status: Current every day smoker Past Alcohol Use History: Occasional Past Drug Use History: None Reported - Past Family History Father Family Medical History: No Reported History Mother Family Medical History: Cancer, Diabetes Mellitus Additional Family Medical History / Comment(s): Kidney stones, lung cancer. Mot her is . Medications and Allergies Home Medications Medication Instructions Recorded Confirmed Type Cefpodoxime Proxetil [Vantin] 200 mg PO Q12HR 10 Days #20 tab 09/23/22 Rx HYDROcodone/APAP 5-325MG [[place] 1 tab PO Q6HR PRN 3 Days #12 tab 09/23/22 Rx 5-325] Allergies Allergy/AdvReac Type Severity Reaction Status Date / Time Penicillins Allergy Rash/Hives Verified 09/23/22 17:18 Results - Imaging Abdominal x-ray: report reviewed, image reviewed US - kidney/bladder: report reviewed, image reviewed Assessment and Plan Assessment: Impression: 9 mm right upj stone with colic, cystitis Recommendations; ESWL right [treated]
== END | disposition home or self-care (01) ==
LOC: RADXRMAIN 09:23
PROVIDERS: ATTEND Urology
DX: N20.2 Calculus of kidney with calculus of ureter (principal)
CPT/HCPCS: 74018; 99214

== ENCOUNTER 2022-09-30 07:01 | Day surgery (SDC) | payer OTHER ==
[2022-09-30] MEDS ORDERED: LACTATED RINGERS 1,000 ML IV ONE (07:17)
[2022-09-30 07:41] VITALS: TEMP 97
[2022-09-30] MEDS ORDERED: ONDANSETRON 4 MG/2 ML VIAL ONE (07:43)
[2022-09-30] MEDS ORDERED: DEXAMETHASONE SOD PHOSPHATE 4 MG/ML 1 ML VIAL IVP ONE (07:48)
[2022-09-30] MEDS ORDERED: ONDANSETRON 4 MG/2 ML VIAL IVP ONE (07:48)
[2022-09-30] MEDS ORDERED: fentaNYL (PF) 50 MCG/ML 2 ML AMP ONE (08:22)
[2022-09-30] MEDS ORDERED: PROPOFOL 10 MG/ML 20 ML VIAL IV ONE (08:22)
[2022-09-30] MEDS ORDERED: LIDOCAINE 2% INJ 20 MG/ML (2 ML VIAL) ONE (08:22)
[2022-09-30] MEDS ORDERED: MIDAZOLAM 2 MG/2 ML VIAL ONE (08:22)
--- NOTE | 2022-09-30 09:14 | P.OP ---
Date of Procedure: 09/30/22 Preoperative Diagnosis: Right UPJ calculus Postoperative Diagnosis: Same Procedure(s) Performed: Right extracorporal shockwave lithotripsy (ESWL) Anesthesia: MAC Surgeon: Oni Valdivia Estimated Blood Loss (ml): 0 IV fluids (ml): 400 Pathology: none sent Condition: stable Disposition: PACU Indications for Procedure: Patient is a 37-year-old white female who presents with right flank pain due to a 9 mm right UPJ calculus. Treatment options were reviewed and she has elected to undergo ESWL. Operative Findings: Excellent fragmentation of the calculus is noted. Description of Procedure: The patient was taken to the operating room and placed on the [employer] Delta II lithotripter in the supine position. The calculus was seen on biplanar fluoroscopy. Once the patient was properly positioned and sedated, lithotripsy was performed. The energy level was gradually increased per protocol, to an energy level of 5. After 200 shocks were administered, a 2 minute pause was instituted per protocol. A total of 2500 shocks were given at a rate of 80 shocks per minute. Fluoroscopy was utilized at a minimum to ensure proper positioning and determine the treatment status. The calculus could no longer be seen at the conclusion of the procedure, consistent with fragmentation. The patient tolerated the procedure well was taken to the recovery room in stable condition. Instructions were given to strain the urine, and the patient will follow-up within one week.
[2022-09-30 09:35] VITALS: BP 112/76; PULSE 77; RESP 14
--- NOTE | 2022-09-30 10:28 | XR ---
EXAMINATION TYPE: XR KUB DATE OF EXAM: 09/30/2022 HISTORY: Pain Comparison: 09/26/2022 Single KUB is submitted for interpretation. Findings: Right renal calculi: Multiple right renal calculi seen measuring up to 1 cm mid to upper pole. Right ureteral calculi: Stable 1 cm right UPJ calculus unchanged in overall size and location relativ e to prior examination. Left renal calculi: Multiple small calculi suspected left kidney. Left ureteral calculi: None Visualized. Pelvic calcifications: Pelvic calcifications likely reflect phleboliths formation. Bowel gas pattern is unremarkable. No free air. No mass effects. IMPRESSION: 1. As above
--- NOTE | 2022-10-01 15:31 | P.GSHP ---
History of Present Illness H&P Date: 09/27/22 37 yo female with a history of stones. She presented to the er 09/23 with right flank pain. AN us showed a probable stone with mild right hydronephrosis. She came to see me.. I did a kub and it shoed a 9mm right upj stone. We discussed treatment options and she comes for eswl right because of persistent discomfort. She has been on culture specific ab for a uti but has not appeared septic. - Constitutional Constitutional: Denies chills, Denies fever - EENT Eyes: denies blurred vision, denies pain Ears, nose, mouth and throat: Denies headache, Denies sore throat - Cardiovascular Cardiovascular: Denies chest pain, Denies shortness of breath - Respiratory Respiratory: Denies cough, Denies 7 - Gastrointestinal Gastrointestinal: Denies abdominal pain, Denies diarrhea, Denies nausea, Denies vomiting - Genitourinary (Female) Genitourinary: Denies dysuria, Denies hematuria - Genitourinary (Male) Genitourinary: Denies dysuria, Denies hematuria - Musculoskeletal Musculoskeletal: Denies myalgias - Integumentary Integumentary: Denies pruritus, Denies rash - Neurological Neurological: Denies numbness, Denies weakness - Psychiatric Psychiatric: Denies anxiety, Denies depression - Endocrine Endocrine: Denies fatigue, Denies weight change Past Medical History Past Medical History: Neurologic Disorder Additional Past Medical History / Comment(s): Hx of cleft lip and palate. Hx of Guillain-[place] Syndrome. Hx kidney stones. History of Any Multi-Drug Resistant Organisms: None Reported Date of last positivie culture/infection: 02/07/22 ESBL E.Coli MDRO Source:: Urine Past Surgical History: Section, Cholecystectomy, Tubal Ligation Additional Past Surgical History / Comment(s): Cystoscopy, surgery for kidney stones. Past Anesthesia/Blood Transfusion Reactions: No Reported Reaction Past Psychological History: No Psychological Hx Reported Smoking Status: Current every day smoker Past Alcohol Use History: Occasional Past Drug Use History: None Reported - Past Family History Father Family Medical History: No Reported History Mother Family Medical History: Cancer, Diabetes Mellitus Additional Family Medical History / Comment(s): Kidney stones, lung cancer. Mot her is . Medications and Allergies Home Medications Medication Instructions Recorded Confirmed Type Cefpodoxime Proxetil [Vantin] 200 mg PO Q12HR 10 Days #20 tab 09/23/22 09/30/22 Rx HYDROcodone/APAP 5-325MG [[place] 1 tab PO Q6HR PRN 3 Days #12 tab 09/23/22 09/30/22 Rx 5-325] Tamsulosin [Flomax] 0.4 mg PO DAILY #30 cap 09/30/22 Rx Allergies Allergy/AdvReac Type Severity Reaction Status Date / Time Penicillins Allergy Rash/Hives Verified 09/30/22 07:41 Results - Imaging Abdominal x-ray: report reviewed, image reviewed US - kidney/bladder: report reviewed, image reviewed Assessment and Plan Assessment: Impression: 9 mm right upj stone with colic, cystitis Recommendations; ESWL right [treated]
== END 2022-09-30 10:04 | disposition home or self-care (01) ==
LOC: ORWHC2ENDO 07:01
PROVIDERS: ATTEND Urology
DX: N20.1 Calculus of ureter (principal); F17.200 Nicotine dependence, unspecified, uncomplicated; F10.20 Alcohol dependence, uncomplicated; Z86.69 Personal history of other diseases of the nervous system and sense organs; Z86.19 Personal history of other infectious and parasitic diseases; Z88.0 Allergy status to penicillin; Z98.890 Other specified postprocedural states; Z84.1 Family history of disorders of kidney and ureter; Z79.899 Other long term (current) drug therapy
CPT/HCPCS: 81025; 82365; 74018; 50590; J2250; J1100; J2405; J3010; J2704; J2001

== ENCOUNTER → 2022-10-02 | Outpatient (CLI) | payer OTHER ==
--- NOTE | 2022-10-02 14:20 | XR ---
EXAMINATION TYPE: XR KUB DATE OF EXAM: 10/02/2022 COMPARISON: 09/30/2022 HISTORY: Pain TECHNIQUE: One view abdominal series FINDINGS: Extensive retained fecal debris overlying the renal outlines limits their assessment. Right kidney is nondiagnostic in assessment. There does appear to be a calcific density similar in si ze the prior exam measuring 9 mm overlying the mid to lower pole right kidney. Approximately 10-15 punctate calcifications in the left upper quadrant likely related to tiny renal c alculi. Surgical clips in the gallbladder fossa. Calcifications in the pelvis are stable likely related to va scular phleboliths. Chronic deformity of the left iliac bone. IMPRESSION: 1. Markedly Limited assessment of the right kidney due to is extensive overlying bowel content. Suspe ct there is residual calcifications as discussed above. 2. Multiple punctate left renal calculi.
== END | disposition home or self-care (01) ==
LOC: RADXRMAIN 14:02
PROVIDERS: ATTEND Urology
DX: N20.2 Calculus of kidney with calculus of ureter (principal)
CPT/HCPCS: 74018

== ENCOUNTER → 2022-10-08 | Outpatient (CLI) | payer OTHER ==
--- NOTE | 2022-10-08 11:58 | XR ---
EXAMINATION TYPE: XR KUB DATE OF EXAM: 10/08/2022 10:56 AM INDICATION: Patient age:Female; 37 years old; Reason for study: N20.0 CALCULUS OF KIDNEY; COMPARISON: CT 01/15/2022, 04/29/2022 TECHNIQUE: One radiographic view of the abdomen was obtained. FINDINGS: The bowel gas pattern is nonspecific without dilated loops of small or large bowel. There i s no evidence for organomegaly or pneumoperitoneum. The osseous structures are intact. High density stool versus calcification projects over the right kidney. Known renal calculi bilaterally are poorl y visualized and evaluated due to bowel. Fecal material and gas are demonstrated throughout the colon and rectum. Right upper quadrant surgical clips. IMPRESSION: Poorly visualized known calculi bilaterally secondary to overlapping bowel. Consider evaluation with CT.
== END | disposition home or self-care (01) ==
LOC: RADXRMAIN 10:23
PROVIDERS: ATTEND Urology
DX: N20.0 Calculus of kidney (principal)
CPT/HCPCS: 74018

== ENCOUNTER 2022-10-30 23:41 | Emergency (ER) | payer OTHER ==
[2022-10-30 23:51] VITALS: BP 110/73; RESP 18; TEMP 98.4
[2022-10-31] MEDS ORDERED: ONDANSETRON 4 MG/2 ML VIAL IVP STA (00:51)
[2022-10-31] MEDS ORDERED: KETOROLAC 15 MG/ML 1 ML VIAL IVP STA (00:51)
[2022-10-31] MEDS ORDERED: SODIUM CHLORIDE 0.9% 1,000 ML IV STA (00:51)
--- NOTE | 2022-10-31 00:59 | ED ---
General Adult HPI - General Chief complaint: Abdominal Pain Stated complaint: Kidney Pain Time Seen by Provider: 10/31/22 00:44 Source: patient, RN notes reviewed, old records reviewed Mode of arrival: ambulatory Limitations: no limitations - History of Present Illness Initial comments: Nontoxic-appearing 37-year-old female presents with family complaining of right flank pain that started about 6 PM this evening. Also has nausea and vomiting but no fevers. Does have history of kidney stones. Denies any hematuria or dysuria. Has seen Dr. Parish her urologist multiple times for kidney stones. Last visit October 08 and was told she was all clear. -: hour(s) (6) Location: right (flank) Severity scale (1-10): 10 Quality: constant Consistency: constant Improves with: none Worsens with: other (palpation) Associated Symptoms: nausea/vomiting - Related Data Previous Rx's Medication Instructions Recorded Cefpodoxime Proxetil [Vantin] 200 mg PO Q12HR 10 Days #20 tab 09/23/22 HYDROcodone/APAP 5-325MG [[place] 1 tab PO Q6HR PRN 3 Days #12 tab 09/23/22 5-325] Tamsulosin [Flomax] 0.4 mg PO DAILY #30 cap 09/30/22 Cephalexin [Keflex] 500 mg PO Q6HR 10 Days #40 cap 10/31/22 Allergies Allergy/AdvReac Type Severity Reaction Status Date / Time Penicillins Allergy Rash/Hives Verified 10/30/22 23:49 Review of Systems ROS Statement: Those systems with pertinent positive or pertinent negative responses have been documented in the HPI. ROS Other: All systems not noted in ROS Statement are negative. 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 Hx kidney stones. History of Any Multi-Drug Resistant Organisms: None Reported Date of last positivie culture/infection: 02/07/22 ESBL E.Coli MDRO Source:: Urine Past Surgical History: Section, Cholecystectomy, Tubal Ligation Additional Past Surgical History / Comment(s): Cystoscopy, surgery for kidney stones. Past Anesthesia/Blood Transfusion Reactions: No Reported Reaction Past Psychological History: No Psychological Hx Reported Smoking Status: Current every day smoker Past Alcohol Use History: Occasional Past Drug Use History: None Reported - Past Family History Father Family Medical History: No Reported History Mother Family Medical History: Cancer, Diabetes Mellitus Additional Family Medical History / Comment(s): Kidney stones, lung cancer. Mother is . General Exam Limitations: no limitations General appearance: alert, in no apparent distress Head exam: Present: atraumatic Eye exam: Present: normal appearance. Absent: scleral icterus, conjunctival in jection, periorbital swelling Neck exam: Absent: meningismus Respiratory exam: Absent: respiratory distress, accessory muscle use Cardiovascular Exam: Present: tachycardia Extremities exam: Present: normal capillary refill Back exam: Present: normal inspection, tenderness (right flank). Absent: rash noted Neurological exam: Present: alert, oriented X3 Psychiatric exam: Present: normal affect, normal mood Skin exam: Present: warm, dry, normal color. Absent: cyanosis, diaphoretic, petechiae, pallor Course Vital Signs 10/30/22 10/31/22 23:49 02:44 Temperature 98.4 F Pulse Rate 105 H 76 Respiratory 18 Rate Blood Pressure 110/73 O2 Sat by Pulse 98 99 Oximetry Medical Decision Making - Medical Decision Making Was pt. sent in by a medical professional or institution (, PA, CEMENTER MACHINE JOINER, urgent care, hospital, or [place] health care facility...) When possible be specific @ -No Did you speak to anyone other than the patient for history (EMS, parent, family, police, friend...)? What history was obtained from this source @ -No Did you review nursing and triage notes (agree or disagree)? Why? @ -I reviewed and agree with nursing and triage notes Were old charts reviewed (outside hosp., previous admission, EMS record, old EKG, old radiological studies, urgent care reports/EKG's, [place] health care facility records)? Report findings @ -Yes previous ER visits and imaging Differential Diagnosis (chest pain, altered mental status, abdominal pain women, abdominal pain men, vaginal bleeding, weakness, fever, dyspnea, syncope, he adache, dizziness, GI bleed, back pain, seizure, CVA, palpatations, mental health, musculoskeletal)? @ -Pyelonephritis, UTI, kidney stone EKG interpreted by me (3pts min.). @ -n/a X-rays interpreted by me (1pt min.). @ -None done CT interpreted by me (1pt min.). @ -None done U/S interpreted by me (1pt. min.). @ -no What testing was considered but not performed or refused? (CT, X-rays, U/S, labs)? Why? @ -None What meds were considered but not given or refused? Why? @ -None Did you discuss the management of the patient with other professionals (professionals i.e. Dr., PA, CEMENTER MACHINE JOINER, lab, RT, psych nurse, clinical social worker, toolroom machinist, teacher, commercial loan officer, catalytic case operator)? Give summary @ -No Was smoking cessation discussed for >3mins.? @ -No Was critical care preformed (if so, how long)? @ -No Were there social determinants of health that impacted care today? How? (Homelessness, low income, unemployed, alcoholism, drug addiction, transportation, low edu. Level, literacy, decrease access to med. care, skilled nursing, rehab)? @ -No Was there de-escalation of care discussed even if they declined (Discuss DNR or withdrawal of care, Hospice)? DNR status @ -No What co-morbidities impacted this encounter? (DM, HTN, Smoking, COPD, CAD, Cancer, CVA, ARF, Chemo, Hep., AIDS, mental health diagnosis, sleep apnea, morbid obesity)? @ -Guillian bare syndrome, kidney stones Was patient admitted / discharged? Hospital course, mention meds given and route, prescriptions, significant lab abnormalities, going to OR and other pertinent info. @ -Discharged Nontoxic-appearing 37-year-old female presents with family complaining of right flank pain that started about 6 PM this evening. Also has nausea and vomiting but no fevers. Does have history of kidney stones. Denies any hematuria or dysuria. Has seen Dr. Parish her urologist multiple times for kidney stones. Last visit October 08 and was told she was all clear. Patient has been seen multiple times in the ER for kidney stones in the past. 7 KUB x-rays this year. Last CT was 04/29/2022 showing mild left hydronephrosis secondary to obstructing 6 x 5 mm ureteral calculus. Additional nonobstructing bilateral renal calculi. Patient also had an ultrasound kidneys renal and bladder on September 23, 2022 showing mild right hydronephrosis, no left hydronephrosis and bilateral renal calculi. Today labs show leukocytosis of 19.8 with a left shift. Electrolytes show a GFR of 66, BUN 11 and creatinine 1.08. Previous creatinine September 23 of this year was 0.80. Ultrasound of the kidney shows moderate right hydronephrosis. An echogenic presumed nephrolithiasis in the mid pole measuring 10 mm. No obvious proximal ureteral stone. Patient was given IV fluids, nausea medication and pain medication with improvement in her symptoms. Patient was offered admission for pyelonephritis and declined stating she will try oral antibiotics outpatient and follow-up with her urologist. She was given a gram of Rocephin and prescribed Keflex. States that she believes she will be okay with this medication but will discuss with Dr. Parish tomorrow or Friday if she has any rash or hives that develop. States has pain medication and zofran at home. Strict return parameters were discussed and patient was discharged home with family. Case discussed with Dr. Mandel Undiagnosed new problem with uncertain prognosis? @ -No Drug Therapy requiring intensive monitoring for toxicity (Heparin, Nitro, Insulin, Cardizem)? @ -No Were any procedures done? @ -No Diagnosis/symptom? @ -Pyelonephritis Acute, or Chronic, or Acute on Chronic? @ -Acute Uncomplicated (without systemic symptoms) or Complicated (systemic symptoms)? @ -Complicated Side effects of treatment? @ -No Exacerbation, Progression, or Severe Exacerbation? @ -No Poses a threat to life or bodily function? How? (Chest pain, [place], SD, pneumonia, PE, COPD, DKA, ARF, appy, cholecystitis, CVA, Diverticulitis, Homicidal, Suicidal, threat to staff... and all critical care pts) @ -No - Lab Data Result diagrams: 10/31/22 01:34 10/31/22 01:34 Lab Results 10/31/22 10/31/22 10/31/22 Range/Units 01:34 01:34 01:34 WBC 19.8 H (3.8-10.6) k/uL RBC 4.70 (3.80-5.40) m/uL Hgb 14.0 (11.4-16.0) gm/dL Hct 41.9 (34.0-46.0) % MCV 89.2 (80.0-100.0) fL MCH 29.7 (25.0-35.0) pg MCHC 33.3 (31.0-37.0) g/dL RDW 15.4 (11.5-15.5) % Plt Count 231 (150-450) k/uL MPV 7.7 Neutrophils % 91 % Lymphocytes % 4 % Monocytes % 4 % Eosinophils % 1 % Basophils % 0 % Neutrophils # 17.9 H (1.3-7.7) k/uL Lymphocytes # 0.8 L (1.0-4.8) k/uL Monocytes # 0.8 (0-1.0) k/uL Eosinophils # 0.2 (0-0.7) k/uL Basophils # 0.0 (0-0.2) k/uL Sodium 137 (137-145) mmol/L Potassium 3.7 (3.5-5.1) mmol/L Chloride 105 (98-107) mmol/L Carbon Dioxide 24 (22-30) mmol/L Anion Gap 8 mmol/L BUN 11 (7-17) mg/dL Creatinine 1.08 H (0.52-1.04) mg/dL Est GFR (CKD-EPI)AfAm 76 (>60 ml/min/1.73 sqM) Est GFR (CKD-EPI)NonAf 66 (>60 ml/min/1.73 sqM) Glucose 119 H (74-99) mg/dL Calcium 9.3 (8.4-10.2) mg/dL Total Bilirubin 0.6 (0.2-1.3) mg/dL AST 22 (14-36) U/L ALT 19 (4-34) U/L Alkaline Phosphatase 106 (38-126) U/L Total Protein 7.3 (6.3-8.2) g/dL Albumin 4.0 (3.5-5.0) g/dL Urine Color Yellow Urine Appearance Cloudy H (Clear) Urine pH 6.5 (5.0-8.0) Ur Specific [place] 1.017 (1.001-1.035) Urine Protein 1+ H (Negative) Urine Glucose (UA) Negative (Negative) Urine Ketones Negative (Negative) Urine Blood Large H (Negative) Urine Nitrite Positive H (Negative) Urine Bilirubin Negative (Negative) Urine Urobilinogen <2.0 (<2.0) mg/dL Ur Leukocyte Esterase Large H (Negative) Urine RBC 46 H (0-5) /hpf Urine WBC >182 H (0-5) /hpf Urine WBC Clumps Few H (None) /hpf Ur Squamous Epith Cells 11 H (0-4) /hpf Urine Bacteria Moderate H (None) /hpf Hyaline Casts 8 H (0-2) /lpf Urine Mucus Occasional H (None) /hpf Disposition Clinical Impression: UTI (urinary tract infection), Pyelonephritis Disposition: HOME SELF-CARE Condition: Good Instructions (If sedation given, give patient instructions): Urinary Tract Infection in Women (ED) Additional Instructions: Increase your fluid intake. Take antibiotics as prescribed. Follow-up with your urologist this week. Return to the emergency room with any new or concerning symptoms including increased pain, fevers or persistent nausea vomiting. Prescriptions: Cephalexin [Keflex] 500 mg PO Q6HR 10 Days #40 cap Is patient prescribed a controlled substance at d/c from ED?: No Referrals: Jacquelin Sims MD [Primary Care Provider] - 1-2 days Pipe Parish MD [STAFF PHYSICIAN] - 1-2 days Time of Disposition: 02:34
[2022-10-31 01:39] LABS: Basophils % (A) 0 %; Eosinophils # (A) 0.2 k/uL (0-0.7); Eosinophils % (A) 1 %; HCT 41.9 % (34.0-46.0); Lymphocytes # (A) 0.8 k/uL (1.0-4.8); Lymphocytes % (A) 4 %; MCH 29.7 pg (25.0-35.0); MCHC 33.3 g/dL (31.0-37.0); MCV 89.2 fL (80.0-100.0); Mean Platelet Volume 7.7; Monocytes # (A) 0.8 k/uL (0-1.0); Monocytes % (A) 4 %; Neutrophils # (A) 17.9 k/uL (1.3-7.7); Neutrophils % (A) 91 %; Platelet Count 231 k/uL (150-450); RDW 15.4 % (11.5-15.5); WBC 19.8 k/uL (3.8-10.6)
[2022-10-31 01:45] LABS: Appearance,Urine Cloudy (Clear); Bacteria,Urine Moderate /hpf; Bilirubin,Urine Negative (Negative); Blood,Urine Large (Negative); Color,Urine Yellow; Glucose,Urine (UA) Negative (Negative); Hyaline Casts,Urine 8 /lpf (0-2); Ketones,Urine Negative (Negative); Leukocyte Esterase,Urine Large (Negative); Mucus,Urine Occasional /hpf; Nitrite,Urine Positive (Negative); PH, Urine 6.5 (5.0-8.0); Protein,Urine 1+ (Negative); RBC,Urine 46 /hpf (0-5); Specific Gravity,Urine 1.017 (1.001-1.035); Squamous Epithelial Cell,Urine 11 /hpf (0-4); Urobilinogen,Urine <2.0 mg/dL (<2.0); WBC,Urine >182 /hpf (0-5)
[2022-10-31] MEDS ORDERED: cefTRIAXone IN SWFI 1,000 MG/10 ML SYRINGE IVP STA (01:56)
[2022-10-31] MEDS ORDERED: MORPHINE SULFATE 4 MG/ML SYRINGE IVP STA (01:57)
[2022-10-31 01:59] LABS: ALT 19 U/L (4-34); AST 22 U/L (14-36); African American GFR (CKD) 76 (>60 ml/min/1.73 sqM); Alkaline Phosphatase 106 U/L (38-126); Anion Gap 8 mmol/L; Blood Urea Nitrogen 11 mg/dL (7-17); Calcium 9.3 mg/dL (8.4-10.2); Carbon Dioxide 24 mmol/L (22-30); Chloride 105 mmol/L (98-107); Glucose 119 mg/dL (74-99); Non-African American GFR(CKD) 66 (>60 ml/min/1.73 sqM); Potassium 3.7 mmol/L (3.5-5.1); Sodium 137 mmol/L (137-145); Total Bilirubin 0.6 mg/dL (0.2-1.3); Total Protein 7.3 g/dL (6.3-8.2)
--- NOTE | 2022-10-31 02:33 | US ---
EXAM: US Retroperitoneal Limited, Renal CLINICAL HISTORY: Flank pain TECHNIQUE: Real-time limited ultrasound of the retroperitoneum with image documentation. COMPARISON: No relevant prior studies available. FINDINGS: Right kidney: The right kidney measures 13.6 x 6.6 x 5.9 cm. There is moderate right hydronephrosis. There is an echogenic focus in the midpole measuring 10. Left kidney: The left kidney measures 11.8 x 5.1 x 5.3 cm. Shadowing hyperechoic focus in the mid to inferior pole of the left kidney measuring 10 x 9 mm. No hydronephrosis. Bladder: The bladder is only mildly filled. No bladder stones. IMPRESSION: There is moderate right hydronephrosis. There is an echogenic presumed nephrolithiasis in the midpole measuring 10 mm. No obvious proximal ureteral stone.
[2022-10-31 02:45] VITALS: PULSE 76
== END 2022-10-31 02:52 | disposition home or self-care (01) ==
LOC: EC 23:41
DX: N39.0 Urinary tract infection, site not specified (principal); N12 Tubulo-interstitial nephritis, not specified as acute or chronic; F17.200 Nicotine dependence, unspecified, uncomplicated; Z88.0 Allergy status to penicillin
CPT/HCPCS: 36415; 80053; 85025; 81001; 76770; 99284; 96374; 96375 ×3; 96361; J2270; J2405; J0696; J1885

== ENCOUNTER 2022-11-27 09:16 | Day surgery (SDC) | payer OTHER ==
--- NOTE | 2022-11-26 11:19 | P.GSHP ---
History of Present Illness H&P Date: 11/26/22 37 yo female with a history of stones. She had eswl september 2022. Recently she had a stent placed by Dr Pichardo for right obstructing stone fragments in the right ureter.. SHe now comes for right ureteroscopy , laser lithotripsy, stone and stent removal - Constitutional Constitutional: Denies chills, Denies fever - EENT Eyes: denies blurred vision, denies pain Ears, nose, mouth and throat: Denies headache, Denies sore throat - Cardiovascular Cardiovascular: Denies chest pain, Denies shortness of breath - Respiratory Respiratory: Denies cough, Denies 7 - Gastrointestinal Gastrointestinal: Denies abdominal pain, Denies diarrhea, Denies nausea, Denies vomiting - Genitourinary (Female) Genitourinary: Denies dysuria, Denies hematuria - Genitourinary (Male) Genitourinary: Denies dysuria, Denies hematuria - Musculoskeletal Musculoskeletal: Denies myalgias - Integumentary Integumentary: Denies pruritus, Denies rash - Neurological Neurological: Denies numbness, Denies weakness - Psychiatric Psychiatric: Denies anxiety, Denies depression - Endocrine Endocrine: Denies fatigue, Denies weight change Past Medical History Past Medical History: Neurologic Disorder Additional Past Medical History / Comment(s): 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 Hx kidney stones. History of Any Multi-Drug Resistant Organisms: None Reported Date of last positivie culture/infection: 02/07/22 ESBL E.Coli MDRO Source:: Urine Past Surgical History: Section, Cholecystectomy, Tubal Ligation Additional Past Surgical History / Comment(s): Cystoscopy, surgery for kidney stones. Past Anesthesia/Blood Transfusion Reactions: No Reported Reaction Past Psychological History: No Psychological Hx Reported Additional Psychological History / Comment(s): Pt resides with her spouse and 2 children. She is independent. Smoking Status: Current every day smoker Past Alcohol Use History: Occasional Additional Past Alcohol Use History / Comment(s): Pt started smoking in 2005 and is a half a ppd smoker. Past Drug Use History: None Reported - Past Family History Father Family Medical History: No Reported History Mother Family Medical History: Cancer, Diabetes Mellitus Additional Family Medical History / Comment(s): Kidney stones, lung cancer. Mother is . Medications and Allergies Home Medications Medication Instructions Recorded Confirmed Type Tamsulosin [Flomax] 0.4 mg PO DAILY #30 cap 09/30/22 11/19/22 Rx Ketorolac [Toradol] 10 mg PO Q6HR PRN #10 tab 11/03/22 11/19/22 Rx Allergies Allergy/AdvReac Type Severity Reaction Status Date / Time Penicillins Allergy Rash/Hives Verified 11/03/22 12:16 Surgical - Exam - General well developed, well nourished, no distress - Eyes normal ocular movement, no icteric - ENT no hearing loss, no congestion - Neck no masses, trachea midline - Respiratory normal respiratory effort, clear to auscultation - Abdomen Abdomen: soft, non tender, no guarding, no rigid, no rebound - Integumentary no rash, no abnormal pigmentation - Neurologic no disoriented, no combative - Psychiatric oriented to time, oriented to person, oriented to place, speech is normal, memory intact Results - Imaging Abdominal x-ray: report reviewed, image reviewed CT scan - abdomen: report reviewed, image reviewed CT scan - pelvis: report reviewed, image reviewed Assessment and Plan Assessment: Impression: right ureteral stones Plan: right ureteroscopy with laser lithotripsy with stone and stent removal
[~2022-11-27 09:16] MED LIST changes: +AMPICILLIN 1,000 MG in SODIUM CHLORIDE 0.9% 50 ML IVPB PRN; -CIPROFLOXACIN/DEXTROSE PMX 400 MG in DEXTROSE/WATER 1 200ML.BAG IVPB PRN
[2022-11-27] MEDS ORDERED: droPERidol 5 MG/2 ML VIAL IVP ONE (09:56)
[2022-11-27] MEDS ORDERED: LACTATED RINGERS 1,000 ML IV SCH (09:56)
[2022-11-27] MEDS ORDERED: LIDOCAINE 1% (10MG/ML) FOR IV START INTRADERMA PRN (09:56)
[2022-11-27] MEDS ORDERED: HYDROmorphone 0.5 MG/0.5 ML SYRINGE IVP PRN (09:56)
[2022-11-27] MEDS ORDERED: ONDANSETRON 4 MG/2 ML VIAL IVP ONE (09:56)
[2022-11-27] MEDS ORDERED: DEXAMETHASONE SOD PHOSPHATE 4 MG/ML 1 ML VIAL IV ONE (09:56)
--- NOTE | 2022-11-27 10:08 | XR ---
EXAMINATION TYPE: XR KUB DATE OF EXAM: 11/27/2022 COMPARISON: 11/01/2022 HISTORY: Pain TECHNIQUE: One view abdominal series FINDINGS: The osseous structures are intact. The bowel gas pattern is nonspecific. There multiple (5-6) punctate 1 to 2 mm calculi overlying the left renal outline. Stable. There is a 9 mm lower pole right renal calculus. Double-J ureteral stent seen and there is a calculus along the distal margin of the stent measuring a length of 7 mm. Hypertrophic changes of the spine. Bilateral hip arthropathy with chronic deformity of the left iliac bone. IMPRESSION: 1. Stable bilateral nephrolithiasis. Calcification along the distal margin of the right ureteral sten t suspicious for ureteral calculus..
[2022-11-27] MEDS ORDERED: fentaNYL (PF) 50 MCG/ML 2 ML AMP ONE (10:28)
[2022-11-27] MEDS ORDERED: PROPOFOL 10 MG/ML 20 ML VIAL IV ONE (10:28)
[2022-11-27] MEDS ORDERED: KETOROLAC 30 MG/ML 1 ML VIAL ONE (10:28)
[2022-11-27] MEDS ORDERED: LIDOCAINE 2% INJ 20 MG/ML (2 ML VIAL) ONE (10:28)
[2022-11-27] MEDS ORDERED: MIDAZOLAM 2 MG/2 ML VIAL ONE (10:28)
--- NOTE | 2022-11-27 11:45 | P.OP ---
Date of Procedure: 11/27/22 Preoperative Diagnosis: Right ureteral and renal stone Postoperative Diagnosis: Same Procedure(s) Performed: Cystoscopy, removal double-J catheter right, right ureteroscopy laser lithotripsy to distal ureteral stone, right ureteroscopy with laser lithotripsy to right renal stone Anesthesia: AMY Surgeon: Pipe [place] Estimated Blood Loss (ml): 0 Pathology: other (Stone) Condition: stable Disposition: PACU Indications for Procedure: The patient is 37. She has active urolithiasis. placed a stent in the right ureter to relieve proximal and distal ureteral obstructing stones. Patient now comes for ureteroscopy stone and stent removal Description of Procedure: Patient brought to the operating suite. Given general anesthesia. Cystoscopy Foroblique lens identifies a double-J catheter from the right ureteral orifice. The rest of the bladder is unremarkable. The right ureteral stent is grasped and pulled to the urethral meatus. An 035 wires passed up into the renal pelvis. Alongside the wire pass a semirigid ureteroscope up to the 9 mm distal ureteral stone. With the 200 laser probe the stone was broken into tiny fragments and drained or basketed. I then removed the ureteroscope and over the right ureteral wires passed 68-18-Ptncot reentry sheath. The inner sheath is removed. I then pass the flexible ureteroscope through the sheath into the right collecting system. I inspect each minor calyx. A 7 mm stone was seen in the right lower pole calyx. With the same 200 laser probe the stone was broken into tiny fragments to be flushed out. The larger this fragment was basketed out. I do a pullout ureteroscopy to make sure there is no remaining stones and that there is not significant edema in the distal ureter there is none. The bladder is drained the patient is awakened and returned recovery room in good condition. She will be discharged home upon recovery and follow in the office in one week.
[2022-11-27 11:47] VITALS: TEMP 97
--- NOTE | 2022-11-27 12:39 | FL ---
Intraoperative/procedural fluoroscopic services were provided for right ureteral stone. Total fluoros copy time is 12.5 seconds with a total of 7 submitted images to PACS. Total DAP 4.1969 Gycm2. Please see the operative note for further details.
[2022-11-27 13:09] VITALS: RESP 18
[2022-11-27 13:24] VITALS: BP 122/79; PULSE 69
== END 2022-11-27 13:32 | disposition home or self-care (01) ==
LOC: OR 09:16
PROVIDERS: ATTEND Urology
DX: N20.2 Calculus of kidney with calculus of ureter (principal); Z90.49 Acquired absence of other specified parts of digestive tract; Z88.0 Allergy status to penicillin; Z79.899 Other long term (current) drug therapy; F17.210 Nicotine dependence, cigarettes, uncomplicated; Z87.442 Personal history of urinary calculi
CPT/HCPCS: 81025; 82365; 74018; 52353; C1769; J2250; J1100; J2405; J3010; J1885; J1580; J0290; J2704; J2001

== ENCOUNTER → 2022-12-09 | Outpatient (CLI) | payer OTHER ==
[2022-12-09 20:41] LABS: ALT 14 U/L (8-44); AST 17 U/L (13-35); Albumin 4.2 d/dL (3.8-4.9); Albumin/Globulin Ratio 1.56 Ratio (1.60-3.17); Alkaline Phosphatase 91 U/L (41-126); BUN/Creat Ratio 9.78 Ratio (12.00-20.00); Blood Urea Nitrogen 8.8 mg/dL (9.0-27.0); Calcium 9.1 mg/dL (8.7-10.3); Carbon Dioxide 24.5 mmol/L (21.6-31.8); Chloride 104 mmol/L (96-109); Globulin 2.7 d/dL (1.6-3.3); Glucose 76 mg/dL (70-110); Potassium 4.1 mmol/L (3.5-5.5); Sodium 138 mmol/L (135-145); Total Bilirubin <0.2 mg/dL (0.3-1.2); Total Protein 6.9 d/dL (6.2-8.2)
== END | disposition home or self-care (01) ==
LOC: LABWHC1 13:30
PROVIDERS: ATTEND Urology
DX: N20.1 Calculus of ureter (principal)
CPT/HCPCS: 36415; 80053

== ENCOUNTER → 2024-05-07 | Outpatient (CLI) | payer OTHER ==
--- NOTE | 2024-05-07 13:42 | XR ---
EXAMINATION TYPE: XR lumbar spine 2 or 3V DATE OF EXAM: 05/07/2024 1:35 PM COMPARISON: None. CLINICAL INDICATION: Female, 38 years old with history of S39.012A strain muscle lower back, pain TECHNIQUE: 3 view(s) obtained. FINDINGS: There are 5 lumbar vertebral bodies. Pedicles are intact. Disc heights are preserved. Vertebral body heights are preserved. Alignment is normal. IMPRESSION: 1. Unremarkable 3 view lumbar spine [facility], , 05/07/2024 1:39 PM
== END | disposition home or self-care (01) ==
LOC: RADXRMAIN 13:24
PROVIDERS: ATTEND Emergency Medicine
DX: S39.012A Strain of muscle, fascia and tendon of lower back, initial encounter (principal)
CPT/HCPCS: 72100

== ENCOUNTER → 2024-07-07 | Outpatient (CLI) | payer OTHER ==
--- NOTE | 2024-07-07 13:53 | XR ---
EXAMINATION TYPE: XR KUB DATE OF EXAM: 07/07/2024 COMPARISON: KUB radiograph 11/27/2022, CT abdomen and pelvis 11/02/2022 HISTORY: Calculus of kidney TECHNIQUE: Single supine KUB image of the abdomen is obtained FINDINGS: Small bowel demonstrates no evidence for dilatation or air fluid levels. Gas and fecal material is seen in non-distended colon. No convincing evidence for pneumoperitoneum. No distinct renal or ureteral calculus. Interval removal right-sided stent from prior exam. Few right -sided pelvic phleboliths. Cholecystectomy clips in right upper quadrant. The lung bases are clear. The osseous structures are intact. IMPRESSION: 1. Overall nonobstructive bowel gas pattern. 2. No distinct renal or ureteral calculus. [facility], , 07/07/2024 1:51 PM
== END | disposition home or self-care (01) ==
LOC: RADXRMAIN 13:30
PROVIDERS: ATTEND Urology
DX: N20.0 Calculus of kidney (principal)
CPT/HCPCS: 74018

== ENCOUNTER 2024-07-18 15:39 | Inpatient (IN) | payer OTHER ==
--- NOTE | 2024-07-18 16:16 | ED ---
Abdominal Pain HPI - General Chief Complaint: Abdominal Pain Stated Complaint: left sided back pain Time Seen by Provider: 07/18/24 16:11 Source: patient Mode of arrival: ambulatory Limitations: no limitations - History of Present Illness Initial Comments: 38-year-old female presenting with chief complaint of left-sided flank pain. Started and is worse today. No radiation to the abdomen. She does have history of kidney stones. No dysuria or hematuria. She does admit to nausea and vomiting. No fever or chills. No diarrhea. No injury or trauma. - Related Data Previous Rx's Medication Instructions Recorded Tamsulosin [Flomax] 0.4 mg PO DAILY #30 cap 09/30/22 Ketorolac [Toradol] 10 mg PO Q6HR PRN #10 tab 11/03/22 Nitrofurantoin Monohyd/M-Cryst 100 mg PO Q12HR #14 cap 11/27/22 [Macrobid] Allergies Allergy/AdvReac Type Severity Reaction Status Date / Time Penicillins Allergy Rash/Hives Verified 07/18/24 15:50 Review of Systems ROS Statement: Those systems with pertinent positive or pertinent negative responses have been documented in the HPI. ROS Other: All systems not noted in ROS Statement are negative. Past Medical History Past Medical History: Neurologic Disorder Additional Past Medical History / Comment(s): Hx of cleft lip and palate. Hx of Guillain-[place] Syndrome. Hx kidney stones. History of Any Multi-Drug Resistant Organisms: ESBL Date of last positivie culture/infection: 04/25/23 MDRO Source:: Urine Past Surgical History: Section, Cholecystectomy, Tubal Ligation Additional Past Surgical History / Comment(s): Cystoscopy, surgery for kidney stones. Past Anesthesia/Blood Transfusion Reactions: No Reported Reaction Past Psychological History: No Psychological Hx Reported Smoking Status: Current every day smoker Past Alcohol Use History: Occasional Past Drug Use History: None Reported - Past Family History Father Family Medical History: No Reported History Mother Family Medical History: Cancer, Diabetes Mellitus Additional Family Medical History / Comment(s): Kidney stones, lung cancer. Mother is . General Exam Limitations: no limitations General appearance: alert, in no apparent distress Head exam: Present: atraumatic, normocephalic, normal inspection Eye exam: Present: normal appearance, EOMI Neck exam: Present: normal inspection. Absent: meningismus Respiratory exam: Absent: respiratory distress Cardiovascular Exam: Present: regular rate Extremities exam: Present: normal inspection Back exam: Present: normal inspection, tenderness Neurological exam: Present: alert, oriented X3 Psychiatric exam: Present: normal affect, normal mood Skin exam: Present: warm, dry, normal color Course Vital Signs 07/18/24 07/18/24 15:48 19:07 Temperature 98.3 F 98.6 F Pulse Rate 106 H 95 Respiratory 20 15 Rate Blood Pressure 137/80 110/69 O2 Sat by Pulse 99 98 Oximetry Medical Decision Making - Medical Decision Making Was pt. sent in by a medical professional or institution (, PA, FACILITY MECHANIC, urgent care, hospital, or senior care...) When possible be specific @ -No Did you speak to anyone other than the patient for history (EMS, parent, family, police, friend...)? What history was obtained from this source @ -No Did you review nursing and triage notes (agree or disagree)? Why? @ -I reviewed and agree with nursing and triage notes Were old charts reviewed (outside hosp., previous admission, EMS record, old EKG, old radiological studies, urgent care reports/EKG's, senior care records)? Report findings @ -No old charts were reviewed Differential Diagnosis (chest pain, altered mental status, abdominal pain women, abdominal pain men, vaginal bleeding, weakness, fever, dyspnea, syncope, headache, dizziness, GI bleed, back pain, seizure, CVA, palpatations, mental health, musculoskeletal)? @ - MDM Differential Back Pain: Strain, zoster, cauda equina syndrome, epidural abscess, vertebral osteomyelitis, discitis, fracture, subluxation, disc herniation, DJD, spinal stenosis, dissection, AAA, pancreatitis, peptic ulcer disease, pyelonephritis, kidney stone… this is not meant to be an all-inclusive list. EKG interpreted by me (3pts min.). @ -As above X-rays interpreted by me (1pt min.). @ -None done CT interpreted by me (1pt min.). @ -CT shows proximal 7 mm left pelvic calculus causing moderate upstream hydroureteronephrosis and associated inflammatory changes. Additional bilateral nonobstructing renal calculi and possible medullary calcinosis U/S interpreted by me (1pt. min.). @ -None done What testing was considered but not performed or refused? (CT, X-rays, U/S, labs)? Why? @ -None What meds were considered but not given or refused? Why? @ -None Did you discuss the management of the patient with other professionals (professionals i.e. , PA, FACILITY MECHANIC, lab, RT, psych nurse, social security benefits interviewer, promotions producer, teacher, seismology technical officer, briefcase sewer)? Give summary @ -Spoke with Dr. Valdivia who accepts admission Was smoking cessation discussed for >3mins.? @ -No Was critical care preformed (if so, how long)? @ -No Were there social determinants of health that impacted care today? How? (Homelessness, low income, unemployed, alcoholism, drug addiction, transportation, low edu. Level, literacy, decrease access to med. care, penitentiary, rehab)? @ -No Was there de-escalation of care discussed even if they declined (Discuss DNR or withdrawal of care, Hospice)? DNR status @ -No What co-morbidities impacted this encounter? (DM, HTN, Smoking, COPD, CAD, Cancer, CVA, ARF, Chemo, Hep., AIDS, mental health diagnosis, sleep apnea, morbid obesity)? @ -None Was patient admitted / discharged? Hospital course, mention meds given and route, prescriptions, significant lab abnormalities, going to OR and other pertinent info. @ -38-year-old female presented with chief complaint of left flank pain nausea and vomiting. History and physical examination are conducted. Patient is given pain meds antiemetics and IV fluids. White count 15.5. Urine is positive for infection with 70 white cells and [address] shows 7 mm proximal pelvic stone with moderate hydronephrosis. Patient is started on 1 g of Rocephin. She will be admitted and is made n.p.o. after midnight. Patient is agreeable with this plan. I discussed this case with my attending Dr. Jaramillo Undiagnosed new problem with uncertain prognosis? @ -No Drug Therapy requiring intensive monitoring for toxicity (Heparin, Nitro, Insulin, Cardizem)? @ -No Were any procedures done? @ -No Diagnosis/symptom? @ -Kidney stone with pyelonephritis Acute, or Chronic, or Acute on Chronic? @ -Acute Uncomplicated (without systemic symptoms) or Complicated (systemic symptoms)? @ -Complicated Side effects of treatment? @ -No Exacerbation, Progression, or Severe Exacerbation? @ -No Poses a threat to life or bodily function? How? (Chest pain, [place], [place], pneumonia, PE, COPD, DKA, ARF, appy, cholecystitis, CVA, Diverticulitis, Homicidal, Suicidal, threat to staff... and all critical care pts) @ -Yes - Lab Data Result diagrams: 07/18/24 16:31 07/18/24 16:31 Lab Results 07/18/24 07/18/24 07/18/24 Range/Units 16:31 16:31 16:31 WBC 15.5 H (3.8-10.6) k/uL RBC 4.93 (3.80-5.40) m/uL Hgb 15.0 (11.4-16.0) gm/dL Hct 46.2 H (34.0-46.0) % MCV 93.7 (80.0-100.0) fL MCH 30.5 (25.0-35.0) pg MCHC 32.5 (31.0-37.0) g/dL RDW 13.4 (11.5-15.5) % Plt Count 227 (150-450) k/uL MPV 7.6 Neutrophils % 89 % Lymphocytes % 6 % Monocytes % 4 % Eosinophils % 1 % Basophils % 1 % Neutrophils # 13.7 H (1.3-7.7) k/uL Lymphocytes # 0.9 L (1.0-4.8) k/uL Monocytes # 0.6 (0-1.0) k/uL Eosinophils # 0.2 (0-0.7) k/uL Basophils # 0.1 (0-0.2) k/uL Sodium 136 L (137-145) mmol/L Potassium 4.2 (3.5-5.1) mmol/L Chloride 103 (98-107) mmol/L Carbon Dioxide 25 (22-30) mmol/L Anion Gap 8 mmol/L BUN 10 (7-17) mg/dL Creatinine 0.89 (0.52-1.04) mg/dL Est GFR (CKD-EPI)AfAm >90 (>60 ml/min/1.73 sqM) Est GFR (CKD-EPI)NonAf 83 (>60 ml/min/1.73 sqM) Glucose 103 H (74-99) mg/dL Plasma Lactic Acid Sung 1.7 (0.7-2.0) mmol/L Calcium 9.6 (8.4-10.2) mg/dL Total Bilirubin 0.8 (0.2-1.3) mg/dL AST 23 (14-36) U/L ALT 18 (4-34) U/L Alkaline Phosphatase 98 (38-126) U/L Total Protein 7.4 (6.3-8.2) g/dL Albumin 4.2 (3.5-5.0) g/dL Urine Color Urine Appearance (Clear) Urine pH (5.0-8.0) Ur Specific Dameron (1.001-1.035) Urine Protein (Negative) Urine Glucose (UA) (Negative) Urine Ketones (Negative) Urine Blood (Negative) Urine Nitrite (Negative) Urine Bilirubin (Negative) Urine Urobilinogen (<2.0) mg/dL Ur Leukocyte Esterase (Negative) Urine RBC (0-5) /hpf Urine WBC (0-5) /hpf Ur Squamous Epith Cells (0-4) /hpf Urine Bacteria (None) /hpf Urine Mucus (None) /hpf 07/18/24 Range/Units 18:14 WBC (3.8-10.6) k/uL RBC (3.80-5.40) m/uL Hgb (11.4-16.0) gm/dL Hct (34.0-46.0) % MCV (80.0-100.0) fL MCH (25.0-35.0) pg MCHC (31.0-37.0) g/dL RDW (11.5-15.5) % Plt Count (150-450) k/uL MPV Neutrophils % % Lymphocytes % % Monocytes % % Eosinophils % % Basophils % % Neutrophils # (1.3-7.7) k/uL Lymphocytes # (1.0-4.8) k/uL Monocytes # (0-1.0) k/uL Eosinophils # (0-0.7) k/uL Basophils # (0-0.2) k/uL Sodium (137-145) mmol/L Potassium (3.5-5.1) mmol/L Chloride (98-107) mmol/L Carbon Dioxide (22-30) mmol/L Anion Gap mmol/L BUN (7-17) mg/dL Creatinine (0.52-1.04) mg/dL Est GFR (CKD-EPI)AfAm (>60 ml/min/1.73 sqM) Est GFR (CKD-EPI)NonAf (>60 ml/min/1.73 sqM) Glucose (74-99) mg/dL Plasma Lactic Acid Sung (0.7-2.0) mmol/L Calcium (8.4-10.2) mg/dL Total Bilirubin (0.2-1.3) mg/dL AST (14-36) U/L ALT (4-34) U/L Alkaline Phosphatase (38-126) U/L Total Protein (6.3-8.2) g/dL Albumin (3.5-5.0) g/dL Urine Color Yellow Urine Appearance Cloudy H (Clear) Urine pH 7.0 (5.0-8.0) Ur Specific Dameron 1.010 (1.001-1.035) Urine Protein Negative (Negative) Urine Glucose (UA) Negative (Negative) Urine Ketones Negative (Negative) Urine Blood Small H (Negative) Urine Nitrite Negative (Negative) Urine Bilirubin Negative (Negative) Urine Urobilinogen <2.0 (<2.0) mg/dL Ur Leukocyte Esterase Large H (Negative) Urine RBC 14 H (0-5) /hpf Urine WBC 70 H (0-5) /hpf Ur Squamous Epith Cells 6 H (0-4) /hpf Urine Bacteria Occasional H (None) /hpf Urine Mucus Rare H (None) /hpf Disposition Clinical Impression: Nephrolithiasis, Urinary tract infection Disposition: ADMITTED IP TO THIS [facility] Condition: Fair Referrals: None,Stated [Primary Care Provider] - 1-2 days Time of Disposition: 19:17
[2024-07-18] MEDS: SODIUM CHLORIDE 0.9% 1,000 ML IV ONE (16:36)
[2024-07-18] MEDS: KETOROLAC 15 MG/ML 1 ML VIAL IVP STA (16:36)
[2024-07-18] MEDS: ONDANSETRON 4 MG/2 ML VIAL IVP STA (16:36)
[2024-07-18 16:39] LABS: Basophils # (A) 0.1 k/uL (0-0.2); Basophils % (A) 1 %; Eosinophils # (A) 0.2 k/uL (0-0.7); Eosinophils % (A) 1 %; HCT 46.2 % (34.0-46.0); Lymphocytes # (A) 0.9 k/uL (1.0-4.8); Lymphocytes % (A) 6 %; MCH 30.5 pg (25.0-35.0); MCHC 32.5 g/dL (31.0-37.0); MCV 93.7 fL (80.0-100.0); Mean Platelet Volume 7.6; Monocytes # (A) 0.6 k/uL (0-1.0); Monocytes % (A) 4 %; Neutrophils # (A) 13.7 k/uL (1.3-7.7); Neutrophils % (A) 89 %; Platelet Count 227 k/uL (150-450); RBC 4.93 m/uL (3.80-5.40); RDW 13.4 % (11.5-15.5); WBC 15.5 k/uL (3.8-10.6)
[2024-07-18 16:52] LABS: ALT 18 U/L (4-34); AST 23 U/L (14-36); African American GFR (CKD) >90 (>60 ml/min/1.73 sqM); Albumin 4.2 g/dL (3.5-5.0); Alkaline Phosphatase 98 U/L (38-126); Anion Gap 8 mmol/L; Blood Urea Nitrogen 10 mg/dL (7-17); Calcium 9.6 mg/dL (8.4-10.2); Carbon Dioxide 25 mmol/L (22-30); Chloride 103 mmol/L (98-107); Glucose 103 mg/dL (74-99); Non-African American GFR(CKD) 83 (>60 ml/min/1.73 sqM); Potassium 4.2 mmol/L (3.5-5.1); Sodium 136 mmol/L (137-145); Total Bilirubin 0.8 mg/dL (0.2-1.3); Total Protein 7.4 g/dL (6.3-8.2)
--- NOTE | 2024-07-18 17:06 | CT ---
EXAMINATION TYPE: CT abdomen pelvis wo con DATE OF EXAM: 07/18/2024 4:57 PM COMPARISON: Multiple prior CT abdomen/pelvis studies, most recently dated 11/02/2022. CLINICAL INDICATION: Female, 38 years old with history of Left flank pain; Left flank pain, hx of alexis juanita barre syndrome TECHNIQUE: Axial CT abdomen pelvis wo con;Sagittal and coronal reformats were created on a separate workstation. Oral contrast used: without Oral Contrast (none if empty) CT DLP: 935.6 mGycm, Automated exposure control for dose reduction was used. FINDINGS: LOWER CHEST: Unremarkable ABDOMEN LIVER: Unremarkable GALLBLADDER AND BILE DUCTS: The gallbladder is surgically absent. PANCREAS: Unremarkable. SPLEEN: Unremarkable. ADRENAL GLANDS: Unremarkable. KIDNEYS AND URETERS: 7 mm proximal left ureter calculus causing moderate upstream hydronephrosis. The re is left perinephric fat stranding/acute inflammatory changes. Bilateral nonobstructive renal calcu li and likely medullary calcinosis also noted. No right-sided hydronephrosis. PELVIS BLADDER: No evidence for wall thickening or mass given limitations of exam. REPRODUCTIVE: Unremarkable. ABDOMEN & PELVIS STOMACH AND BOWEL: Stomach and duodenum are unremarkable. No evidence of bowel obstruction. Appendix unremarkable. PERITONEUM/RETROPERITONEUM: No evidence of pneumoperitoneum or free fluid. VASCULATURE: No evidence of aortic aneurysm. MUSCULOSKELETAL: No acute osseous abnormalities LYMPH NODES: No gross evidence for lymphadenopathy. SOFT TISSUE/ABDOMINAL WALL: Unremarkable IMPRESSION: 1. Proximal 7 mm left pelvic calculus causing moderate upstream hydroureteronephrosis and associated inflammatory changes. 2. Additional bilateral nonobstructing renal calculi and possible medullary calcinosis. [facility], , 07/18/2024 5:03 PM
[2024-07-18 18:31] LABS: Appearance,Urine Cloudy (Clear); Bacteria,Urine Occasional /hpf; Bilirubin,Urine Negative (Negative); Blood,Urine Small (Negative); Color,Urine Yellow; Glucose,Urine (UA) Negative (Negative); Ketones,Urine Negative (Negative); Leukocyte Esterase,Urine Large (Negative); Mucus,Urine Rare /hpf; Nitrite,Urine Negative (Negative); Protein,Urine Negative (Negative); RBC,Urine 14 /hpf (0-5); Squamous Epithelial Cell,Urine 6 /hpf (0-4); Urobilinogen,Urine <2.0 mg/dL (<2.0); WBC,Urine 70 /hpf (0-5)
[2024-07-18] MEDS: cefTRIAXone IN SWFI 1,000 MG/10 ML SYRINGE IVP STA (19:07)
[2024-07-18] MEDS ORDERED: KETOROLAC 15 MG/ML 1 ML VIAL IVP PRN (19:13)
[2024-07-18] MEDS ORDERED: NALOXONE 0.4 MG/ML 1 ML VIAL IV PRN (19:13)
[2024-07-18] MEDS: MORPHINE SULFATE 4 MG/ML SYRINGE IV PRN (20:34)
[2024-07-18] MEDS: SODIUM CHLORIDE 0.9% 1,000 ML IV SCH (20:53)
--- NOTE | 2024-07-18 21:12 | P.GSHP ---
History of Present Illness H&P Date: 07/18/24 Chief Complaint: Left flank pain The patient is a 38-year-old white female with a history of recurrent urolithiasis. Beginning on July 15, she has experienced nonradiating left flank pain, associated with nausea and vomiting. She presented to the ER and was found to have left hydronephrosis due to a 7.5 mm left proximal ureteral calculus. Bilateral renal calculi were also seen. Urinalysis is suggestive of a UTI. She has been admitted and is being treated with IV hydration, IV antibiotics, and parenteral analgesics. - Constitutional Constitutional: Denies chills, Denies fever - Gastrointestinal Gastrointestinal: Reports nausea, Reports vomiting - Genitourinary (Female) Genitourinary: Reports flank pain, Reports kidney stones, Denies dysuria, Denies hematuria Past Medical History Past Medical History: Neurologic Disorder Additional Past Medical History / Comment(s): Hx of cleft lip and palate. Hx of Guillain-[place] Syndrome. Hx kidney stones. History of Any Multi-Drug Resistant Organisms: ESBL Date of last positivie culture/infection: 04/25/23 MDRO Source:: Urine Past Surgical History: Section, Cholecystectomy, Tubal Ligation Additional Past Surgical History / Comment(s): Cystoscopy, surgery for kidney stones. Past Anesthesia/Blood Transfusion Reactions: No Reported Reaction Past Psychological History: No Psychological Hx Reported Smoking Status: Current every day smoker Past Alcohol Use History: Occasional Past Drug Use History: None Reported - Past Family History Father Family Medical History: No Reported History Mother Family Medical History: Cancer, Diabetes Mellitus Additional Family Medical History / Comment(s): Kidney stones, lung cancer. Mother is . Medications and Allergies Home Medications Medication Instructions Recorded Confirmed Type No Known Home Medications 07/18/24 07/18/24 History Allergies Allergy/AdvReac Type Severity Reaction Status Date / Time Penicillins Allergy Rash/Hives Verified 07/18/24 19:28 Surgical - Exam Vital Signs Temp Pulse Resp BP Pulse Ox 98.3 F 106 H 20 137/80 99 07/18/24 15:48 07/18/24 15:48 07/18/24 15:48 07/18/24 15:48 07/18/24 15:48 - General well developed, well nourished, moderate distress - Neck no masses, trachea midline - Respiratory normal respiratory effort - Abdomen Soft, non-distended, non-tender, no mass. Left CVA tenderness is noted. - Psychiatric oriented to time, oriented to person, oriented to place, speech is normal, memory intact Results - Labs 07/18/24 16:31 07/18/24 16:31 Abnormal Lab Results - Last 24 Hours (Table) 07/18/24 07/18/24 07/18/24 Range/Units 16:31 16:31 18:14 WBC 15.5 H (3.8-10.6) k/uL Hct 46.2 H (34.0-46.0) % Neutrophils # 13.7 H (1.3-7.7) k/uL Lymphocytes # 0.9 L (1.0-4.8) k/uL Sodium 136 L (137-145) mmol/L Glucose 103 H (74-99) mg/dL Urine Appearance Cloudy H (Clear) Urine Blood Small H (Negative) Ur Leukocyte Esterase Large H (Negative) Urine RBC 14 H (0-5) /hpf Urine WBC 70 H (0-5) /hpf Ur Squamous Epith Cells 6 H (0-4) /hpf Urine Bacteria Occasional H (None) /hpf Urine Mucus Rare H (None) /hpf Diabetes panel 07/18/24 Range/Units 16:31 Sodium 136 L (137-145) mmol/L Potassium 4.2 (3.5-5.1) mmol/L Chloride 103 (98-107) mmol/L Carbon Dioxide 25 (22-30) mmol/L BUN 10 (7-17) mg/dL Creatinine 0.89 (0.52-1.04) mg/dL Glucose 103 H (74-99) mg/dL Calcium 9.6 (8.4-10.2) mg/dL AST 23 (14-36) U/L ALT 18 (4-34) U/L Alkaline Phosphatase 98 (38-126) U/L Total Protein 7.4 (6.3-8.2) g/dL Albumin 4.2 (3.5-5.0) g/dL Calcium panel 07/18/24 Range/Units 16:31 Calcium 9.6 (8.4-10.2) mg/dL Albumin 4.2 (3.5-5.0) g/dL Pituitary panel 07/18/24 Range/Units 16:31 Sodium 136 L (137-145) mmol/L Potassium 4.2 (3.5-5.1) mmol/L Chloride 103 (98-107) mmol/L Carbon Dioxide 25 (22-30) mmol/L BUN 10 (7-17) mg/dL Creatinine 0.89 (0.52-1.04) mg/dL Glucose 103 H (74-99) mg/dL Calcium 9.6 (8.4-10.2) mg/dL Adrenal panel 07/18/24 Range/Units 16:31 Sodium 136 L (137-145) mmol/L Potassium 4.2 (3.5-5.1) mmol/L Chloride 103 (98-107) mmol/L Carbon Dioxide 25 (22-30) mmol/L BUN 10 (7-17) mg/dL Creatinine 0.89 (0.52-1.04) mg/dL Glucose 103 H (74-99) mg/dL Calcium 9.6 (8.4-10.2) mg/dL Total Bilirubin 0.8 (0.2-1.3) mg/dL AST 23 (14-36) U/L ALT 18 (4-34) U/L Alkaline Phosphatase 98 (38-126) U/L Total Protein 7.4 (6.3-8.2) g/dL Albumin 4.2 (3.5-5.0) g/dL - Imaging CT scan - abdomen: report reviewed, image reviewed Assessment and Plan (1) Hydronephrosis with renal and ureteral calculous obstruction Current Visit: Yes Status: Acute Code(s): N13.2 - HYDRONEPHROSIS WITH RENAL AND URETERAL CALCULOUS OBSTRUCTION SNOMED Code(s): 169885600 (2) UTI (urinary tract infection) Current Visit: Yes Status: Acute Code(s): N39.0 - URINARY TRACT INFECTION, SITE NOT SPECIFIED SNOMED Code(s): 12676386 Plan: Urinalysis is consistent with infection, and CT scan shows an obstructing left proximal ureteral calculus. Urine culture was sent, and the patient has received ceftriaxone. She has been advised to undergo cystoscopy with left ureteral stent insertion tomorrow. The rationale for this was reviewed with her, and it was explained to her that she will be scheduled to undergo stent removal with ureteroscopic removal of the ureteral calculus once her infection has cleared. Time with Patient: Greater than 30
[2024-07-19] MEDS ORDERED: ACETAMINOPHEN TAB 325 MG TAB PO PRN (07:54)
[2024-07-19] MEDS: ONDANSETRON 4 MG/2 ML VIAL IVP PRN (10:01)
[2024-07-19] MEDS: HYDROmorphone 2 MG/ML 1 ML SYRINGE IVP PRN (11:05)
--- NOTE | 2024-07-19 11:25 | P.CONS ---
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 She presented to the hospital with a chief complaint of left- sided flank pain accompanied by recurrent episodes of nausea and vomiting. Patient denied having any urinary retention, urinary frequency, hematuria, dysuria, suprapubic pain or pressure, fevers, chills, diaphoresis, or any other complaints at this time. Upon arrival to our facility, patient underwent evaluation in the emergency department. Vital signs upon arrival show blood pressure 137/80, heart rate 106, respiratory rate 20, temp 98.3 F, and SpO2 of 99% on room air. Labs completed and reviewed. CBC showing leukocytosis with WBC count of 15.5. BMP unremarkable. Blood glucose 103. Lactic acid 1.7. Liver profile normal findings. Serum hCG negative for . Urinalysis positive for blood and infection. 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 Patient started on IV antibiotics with Rocephin and admitted under urology team. We were consulted for medical management throughout hospitalization. Review of systems: Pertinent positives and negatives as discussed in HPI, a complete review of systems was performed and all other systems are negative. Physical exam: Vital signs reviewed and stable. General: Nontoxic, no distress and appears stated age. Derm: Skin warm and dry, normal coloration for ethnicity. Head: Atraumatic, normocephalic and symmetric. Eyes: EOM's intact, no lid lag, and anicteric sclera Mouth: no lip lesions, mucus membranes moist Cardiovascular: regular rate and rhythm with normal S1S2, no murmur, positive posterior tibial pulses bilaterally, and cap refill < 2 seconds. Lungs: Respirations even, regular, and unlabored on room air. Lungs CTA bilaterally, no rhonchi, no rales, no wheezing, and no accessory muscle usage. Abdominal: soft, nontender to palpation, no guarding, no appreciable organomegaly. Left flank and CVA tenderness. No suprapubic tenderness. Ext: ROM intact. No gross muscle atrophy, no edema, no contractures Neuro: Speech clear, face symmetrical and CN II-XII grossly intact with no noted focal neuro deficits Psych: Alert and oriented to person, place, time, and situation. Appropriate and pleasant affect. Assessment and Plan of Care: Pyelonephritis with obstructive stone and hydronephrosis Leukocytosis, secondary to above Nausea and vomiting, secondary to above -Patient admitted under urology, discussed in detail with Dr. Valdivia stating plans for cystoscopy with stent placement later today. -Continue IV antibiotics with Rocephin 2 g daily pending urine culture and sensitivity report. -Continue symptomatic care and pain management. With Tylenol 650 mg every 6 hours as needed for mild pain/fever, Toradol 15 mg IVP every 6 hours as needed for moderate pain, and Dilaudid 1 mg IVP every 4 hours as needed for severe pain. -Continue Zofran 4 mg IVP every 8 hours as needed for nausea or vomiting. -Continue gentle IV fluid hydration with 0.9% normal saline at 130 cc/h, may discontinue IV fluids once cystoscopy and stent placement is completed and patient tolerating oral intake. Data and imaging reviewed: As stated above in HPI Thank you for allowing us to participate in the care of this pleasant patient. Do not hesitate to contact us with questions. Someone can be reached from the [facility] hospitalist group all hours of the day at [phone] or via perfect serve. Patient was seen independently by Nurse Practitioner. This document was prepared using [employer] dictation software. Please allow for errors in chief fishery division while rare they do occur. Girma Dominguez NP rendered care for this patient independently, reviewed the findings and plan as documented in the note above and agree with plan. I did not physically speak with or examine the patient on this date. Past Medical History Past Medical History: Neurologic Disorder Additional Past Medical History / Comment(s): Hx of cleft lip and palate. Hx of Guillain-[place] Syndrome. Hx kidney stones. History of Any Multi-Drug Resistant Organisms: ESBL Year Discovered:: 04/25/23 MDRO Source:: Urine Past Surgical History: Section, Cholecystectomy, Tubal Ligation Additional Past Surgical History / Comment(s): Cystoscopy, surgery for kidney stones. Past Anesthesia/Blood Transfusion Reactions: No Reported Reaction Past Psychological History: No Psychological Hx Reported Additional Psychological History / Comment(s): Pt resides with her spouse and 2 children. She is independent. Smoking Status: Current every day smoker Past Alcohol Use History: Occasional Additional Past Alcohol Use History / Comment(s): Pt started smoking in 2005 and is a half a ppd smoker. Past Drug Use History: None Reported - Past Family History Father Family Medical History: No Reported History Mother Family Medical History: Cancer, Diabetes Mellitus Additional Family Medical History / Comment(s): Kidney stones, lung cancer. Mother is . Medications and Allergies Home Medications Medication Instructions Recorded Confirmed Type No Known Home Medications 07/18/24 07/19/24 History Allergies Allergy/AdvReac Type Severity Reaction Status Date / Time Penicillins Allergy Rash/Hives Verified 07/19/24 11:50 Physical Exam Vitals: Vital Signs Temp Pulse Pulse Resp BP BP Pulse Ox 07/19/24 07:00 97.9 F 85 15 102/67 98 07/19/24 01:05 98.3 F 75 16 92/54 97 07/18/24 21:05 99.2 F 107 H 18 125/72 100 07/18/24 20:40 98.2 F 68 22 102/92 98 07/18/24 19:07 98.6 F 95 15 110/69 98 07/18/24 15:48 98.3 F 106 H 20 137/80 99 Intake and Output 07/18/24 07/19/24 07/19/24 22:59 06:59 14:59 Other: Voiding Method Toilet # Voids 1 2 Weight 95.254 kg Results CBC & Chem 7: 07/18/24 16:31 07/18/24 16:31 Labs: Abnormal Lab Results - Last 24 Hours (Table) 07/18/24 07/18/24 07/18/24 Range/Units 16:31 16:31 18:14 WBC 15.5 H (3.8-10.6) k/uL Hct 46.2 H (34.0-46.0) % Neutrophils # 13.7 H (1.3-7.7) k/uL Lymphocytes # 0.9 L (1.0-4.8) k/uL Sodium 136 L (137-145) mmol/L Glucose 103 H (74-99) mg/dL Urine Appearance Cloudy H (Clear) Urine Blood Small H (Negative) Ur Leukocyte Esterase Large H (Negative) Urine RBC 14 H (0-5) /hpf Urine WBC 70 H (0-5) /hpf Ur Squamous Epith Cells 6 H (0-4) /hpf Urine Bacteria Occasional H (None) /hpf Urine Mucus Rare H (None) /hpf
[2024-07-19] MEDS ORDERED: KETOROLAC 15 MG/ML 1 ML VIAL ONE (11:57)
[2024-07-19] MEDS ORDERED: MIDAZOLAM 2 MG/2 ML VIAL ONE (11:57)
[2024-07-19] MEDS: LACTATED RINGERS 1,000 ML BAG IV STA (11:57)
[2024-07-19] MEDS ORDERED: fentaNYL (PF) 50 MCG/ML 2 ML AMP ONE (11:57)
[2024-07-19] MEDS ORDERED: GLYCOPYRROLATE 0.2 MG/ML 2 ML VIAL ONE (11:57)
[2024-07-19] MEDS ORDERED: KETAMINE HCL IN 0.9 % NACL 50 MG/5 ML SYRINGE ONE (11:57)
[2024-07-19] MEDS ORDERED: PROPOFOL 10 MG/ML 20 ML VIAL IV ONE (11:57)
[2024-07-19] MEDS ORDERED: LIDOCAINE 1% INJ 10MG/ML (20 ML MDV) ONE (11:57)
[2024-07-19] MEDS: DEXAMETHASONE SOD PHOSPHATE 4 MG/ML 1 ML VIAL IVP STA (11:59)
[2024-07-19] MEDS: IV FLUID CONTINUATION 1,000 ML IV ONE (12:00)
--- NOTE | 2024-07-19 12:35 | P.OP ---
Date of Procedure: 07/19/24 Preoperative Diagnosis: Left ureteral calculus with obstruction, urinary tract infection with sepsis, left pyelonephrosis Postoperative Diagnosis: Same Procedure(s) Performed: Cystoscopy with placement of 6 x 24 double-J catheter left Anesthesia: MAC Surgeon: Pipe Parish Estimated Blood Loss (ml): 0 Pathology: none sent Condition: stable Disposition: PACU Indications for Procedure: The patient is 38. She has a known history of kidney stone disease, medullary sponge kidney. She dropped a 7 mm stone in the proximal left ureter. Her urine is infected. She has a white count of 15,000. She comes for double-J catheter left Description of Procedure: Patient brought to the operating suite. Given a sedative anesthetic. She is placed in lithotomy position with a sterile prep and drape. Cystoscopy Foroblique lens and 21 Czech sheath identifies an inflamed floor the bladder. The ureteral orifices are normal. An 035 wire was passed up the left ureter and meets obstruction at the proximal ureteral stone. I am able to manipulate by the stone. Pyelonephritis urine is drained out of the left ureter. Over the wire is then passed a 6 x 24 double-J catheter close in the renal pelvis and in the bladder. The bladder was drained the patient is awakened and returned recovery in good condition. She will be observed in the hospital overnight. In about 2 to 3 weeks she will have a stone and stent removal.
--- NOTE | 2024-07-19 12:36 | FL ---
Fluoroscopy INDICATION: Pain FINDINGS: Fluoroscopy time: 10.7 seconds. Total dose area product (DAP) in uGy*m?, mGy*cm? (or similar): 1.5413 Images obtained: 1. Images document the procedure. IMPRESSION: 1. Documentation of fluoroscopy. [facility], , 07/19/2024 12:33 PM
[2024-07-19] MEDS: NICOTINE 14MG/24HR PATCH TRANSDERM SCH (16:11)
[2024-07-20 08:40] LABS: BUN/Creat Ratio 12.44 Ratio (12.00-20.00); Blood Urea Nitrogen 11.2 mg/dL (9.0-27.0); Calcium 8.4 mg/dL (8.7-10.3); Carbon Dioxide 19.2 mmol/L (21.6-31.8); Chloride 108 mmol/L (96-109); Glucose 173 mg/dL (70-110); Potassium 4.2 mmol/L (3.5-5.5); Sodium 137 mmol/L (135-145)
[2024-07-20 08:46] VITALS: BP 130/72; PULSE 50; RESP 16; TEMP 98
[2024-07-20 08:48] LABS: HCT 37.8 % (37.2-46.3); HGB 12.5 g/dL (12.0-15.0); MCH 31.4 pg (27.0-32.0); MCHC 33.1 g/dL (32.0-37.0); Mean Platelet Volume 10.8 FL (9.5-12.2); NRBC Per 100 WBC 0 X 10*3/uL (0.00-0.01); Platelet Count 185 X 10*3/uL (140-440); RBC 3.98 X 10*6/uL (4.10-5.20); RDW 13.6 % (11.5-14.5)
--- NOTE | 2024-07-20 12:09 | P.PN ---
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 She presented to the hospital with a chief complaint of left- sided flank pain accompanied by recurrent episodes of nausea and vomiting. Patient denied having any urinary retention, urinary frequency, hematuria, dysuria, suprapubic pain or pressure, fevers, chills, diaphoresis, or any other complaints at this time. Upon arrival to our facility, patient underwent evalua tion in the emergency department. Vital signs upon arrival show blood pressure 137/80, heart rate 106, respiratory rate 20, temp 98.3 F, and SpO2 of 99% on room air. Labs completed and reviewed. CBC showing leukocytosis with WBC count of 15.5. BMP unremarkable. Blood glucose 103. Lactic acid 1.7. Liver profile normal findings. Serum hCG negative for . Urinalysis positive for blo od and infection. 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 Patient started on IV antibiotics with Rocephin and admitted under urology team. We were consulted for medical management throughout hospitalization. patient was taken for cystoscopy and placement of left ureteral stent. Physical exam: Patient seen and fully evaluated at the bedside this morning. She currently reports full resolution of left flank pain and CVA tenderness And continues to deny any suprapubic tenderness. She reports urinating without difficulties and denies any further episodes of nausea or vomiting. Vital signs reviewed and stable. General: Nontoxic, no distress and appears stated age. Derm: Skin warm and dry, normal coloration for ethnicity. Head: Atraumatic, normocephalic and symmetric. Eyes: EOM's intact, no lid lag, and anicteric sclera Mouth: no lip lesions, mucus membranes moist Cardiovascular: regular rate and rhythm with normal S1S2, no murmur, positive posterior tibial pulses bilaterally, and cap refill < 2 seconds. Lungs: Respirations even, regular, and unlabored on room air. Lungs CTA bilaterally, no rhonchi, no rales, no wheezing, and no accessory muscle usage. Abdominal: soft, nontender to palpation, no guarding, no appreciable organomegaly. No suprapubic tenderness. Ext: ROM intact. No gross muscle atrophy, no edema, no contractures Neuro: Speech clear, face symmetrical and CN II-XII grossly intact with no noted focal neuro deficits Psych: Alert and oriented to person, place, time, and situation. Appropriate and pleasant affect. Assessment and Plan of Care: Pyelonephritis with obstructive stone and Left sided hydronephrosis Leukocytosis, secondary to above Nausea and vomiting, secondary to above Status post cystoscopy with left ureteral stent placement -Patient admitted under urology, discussed in detail with Dr. Valdivia who took patient for cystoscopy with left ureteral stent placement on 07/19/2024. -Continue IV antibiotics with Rocephin 2 g daily pending urine culture and sensitivity report. -Preliminary urine culture positive for gram-negative bacilli, follow-up on final culture and sensitivity report once available -Continue symptomatic care and pain management. With Tylenol 650 mg every 6 hours as needed for mild pain/fever, Toradol 15 mg IVP every 6 hours as needed for moderate pain, and Dilaudid 1 mg IVP every 4 hours as needed for severe pain. -Continue Zofran 4 mg IVP every 8 hours as needed for nausea or vomiting. -Patient tolerating regular diet, IV fluids discontinued at this time. Hyperglycemia -Blood glucose 173 this morning. Order placed for hemoglobin A1c. Data and imaging reviewed: -Morning labs reviewed. Preliminary urine culture positive for gram-negative bacilli. CBC showing slightly worsening leukocytosis with WBC count of 16.30 otherwise normal findings. BMP showing renal function to remain unremarkable revealing mild hypocarbia with bicarb of 19.2 otherwise normal findings. Blood glucose was elevated at 173 this morning. -Vital Signs reviewed. Blood pressure 130/72, heart rate 50, respiratory rate 16, temp 98.0 F, and SpO2 of 99% on room air Thank you for allowing us to participate in the care of this pleasant patient. Do not hesitate to contact us with questions. Someone can be reached from the [facility] hospitalist group all hours of the day at [phone] or via [employer] serve. Patient was seen independently by Nurse Practitioner. This document was prepared using [employer] dictation software. Please allow for errors in orthopedic coder while rare they do occur. Girma Dominguez NP rendered care for this patient independently, reviewed the findings and plan as documented in the note above and agree with plan. I did not physically speak with or examine the patient on this date. Objective - Vital Signs Vital signs: Vital Signs Temp 98.0 F 07/20/24 07:10 Pulse 50 L 07/20/24 07:10 Resp 16 07/20/24 07:10 BP 130/72 07/20/24 07:10 Pulse Ox 99 07/20/24 07:10 FiO2 Intake & Output 07/19/24 07/20/24 07/20/24 18:59 06:59 18:59 Intake Total 400 1080 Output Total 0 Balance 400 1080 Weight 95.254 kg Intake: IV 400 Oral 1080 Output: Estimated Blood Loss 0 Other: Voiding Method Toilet Toilet # Voids 3 2 - Labs CBC & Chem 7: 07/20/24 05:28 07/20/24 05:28 Labs: Abnormal Lab Results - Last 24 Hours (Table) 07/20/24 07/20/24 Range/Units 05:28 05:28 WBC 16.30 H (4.50-10.00) X 10*3/uL RBC 3.98 L (4.10-5.20) X 10*6/uL Carbon Dioxide 19.2 L (21.6-31.8) mmol/L Glucose 173 H (70-110) mg/dL Calcium 8.4 L (8.7-10.3) mg/dL Microbiology - Last 24 Hours (Table) 07/18/24 18:14 Urine Culture - Preliminary Urine,Voided Gram Neg Bacilli
--- NOTE | 2024-07-20 12:37 | P.DS ---
Providers Date of admission: 07/18/24 18:41 Attending physician: Oni Valdivia Consults: 07/18/24 19:13 Consult Physician Urgent Consulting Provider: Sal Kern Consult Reason/Comments: Medical mgmt Do you want consulting provider notified?: Yes Primary care physician: Stated None Hospital Course: The patient with medullary sponge kidney was admitted 07/18 for an obstructing left ureteral stone with colic and pyonephrosis. She received iv ab, pain meds aqnd underwent a cysto with left ureteral stent. She has done well since. She will d/cd home on macrobid. She will fu in the office in 1 week She will need a secondary left ureteroscopy with stone and stent removal Patient Condition at Discharge: Good Plan - Discharge Summary Discharge Rx Participant: No New Discharge Prescriptions: New Nitrofurantoin Monohyd/M-Cryst [Macrobid] 100 mg PO Q12HR #30 cap Discharge Medication List Nitrofurantoin Monohyd/M-Cryst [Macrobid] 100 mg PO Q12HR #30 cap 07/20/24 [Rx] Follow up Appointment(s)/Referral(s): [facility] [NON-STAFF] - 1 Week Pipe Parish MD [STAFF PHYSICIAN] - 1 Week Discharge Disposition: HOME SELF-CARE
== END 2024-07-20 14:00 | disposition home or self-care (01) | DRG 854 ==
LOC: EC 15:39 → 6NMEDSUR 18:41
PROVIDERS: ADMIT Urology; ATTEND Urology
PROC: 0T778DZ Dilation of Left Ureter with Intraluminal Device, Via Natural or Artificial Opening Endoscopic (ICD-10-PCS; principal; 2024-07-19 13:15)
DX: A41.9 Sepsis, unspecified organism (principal); N13.6 Pyonephrosis; Q61.5 Medullary cystic kidney; F17.210 Nicotine dependence, cigarettes, uncomplicated; Z87.442 Personal history of urinary calculi; Z87.730 Personal history of (corrected) cleft lip and palate; Z88.0 Allergy status to penicillin; Z86.69 Personal history of other diseases of the nervous system and sense organs
CPT/HCPCS: 36415; 74176; 80048; 80053; 81001; 81025; 83036; 83605; 83735; 84703; 85025; 85027; 87086; 96361; 96374; 96375; 99285

== ENCOUNTER 2024-08-20 05:57 | Day surgery (SDC) | payer OTHER ==
[2024-08-17 09:06] VITALS: BMI 30.7
--- NOTE | 2024-08-19 11:17 | P.GSHP ---
History of Present Illness H&P Date: 08/19/24 39-year-old female with active urolithiasis. She has delayed her sponge kidney. Bilateral tubular stones. She recently had a left ureteral stone requiring a stent. She now comes for formal stent and stone removal. - Constitutional Constitutional: Denies chills, Denies fever - EENT Eyes: denies blurred vision, denies pain Ears, nose, mouth and throat: Denies headache, Denies sore throat - Cardiovascular Cardiovascular: Denies chest pain, Denies shortness of breath - Respiratory Respiratory: Denies cough, Denies 7 - Gastrointestinal Gastrointestinal: Denies abdominal pain, Denies diarrhea, Denies nausea, Denies vomiting - Genitourinary (Female) Genitourinary: Denies dysuria, Denies hematuria - Genitourinary (Male) Genitourinary: Denies dysuria, Denies hematuria - Musculoskeletal Musculoskeletal: Denies myalgias - Integumentary Integumentary: Denies pruritus, Denies rash - Neurological Neurological: Denies numbness, Denies weakness - Psychiatric Psychiatric: Denies anxiety, Denies depression - Endocrine Endocrine: Denies fatigue, Denies weight change Past Medical History Past Medical History: Neurologic Disorder Additional Past Medical History / Comment(s): Hx of cleft lip and palate. Hx of Guillain-M[place]on[place] Syndrome. Hx kidney stones. History of Any Multi-Drug Resistant Organisms: ESBL Date of last positivie culture/infection: 04/25/23 MDRO Source:: Urine Past Surgical History: Section, Cholecystectomy, Tubal Ligation Additional Past Surgical History / Comment(s): Cystoscopy, surgery for kidney stones. Past Anesthesia/Blood Transfusion Reactions: No Reported Reaction Smoking Status: Current every day smoker - Past Family History Father Family Medical History: No Reported History Mother Family Medical History: Cancer, Diabetes Mellitus Additional Family Medical History / Comment(s): Kidney stones, lung cancer. Mother is . Medications and Allergies Home Medications Medication Instructions Recorded Confirmed Type No Known Home Medications 08/17/24 08/17/24 History Allergies Allergy/AdvReac Type Severity Reaction Status Date / Time Penicillins Allergy Rash/Hives Verified 08/17/24 08:58 Results - Imaging CT scan - abdomen: report reviewed, image reviewed CT scan - pelvis: report reviewed, image reviewed Assessment and Plan Assessment: Impression: Left ureteral calculus with stent Recommendations: Cystoscopy left ureteroscopy with laser lithotripsy stone and stent removal
[~2024-08-20 05:57] MED LIST changes: -AMPICILLIN 1,000 MG in SODIUM CHLORIDE 0.9% 50 ML IVPB PRN; +SCOPOLAMINE 1 MG/72 HR PATCH TRANSDERM ONE
[2024-08-20] MEDS: LACTATED RINGERS 1,000 ML IV ONE ×2 (06:44→07:24)
[2024-08-20] MEDS: LACTATED RINGERS 1,000 ML IV SCH (06:51)
[2024-08-20] MEDS: DEXAMETHASONE SOD PHOSPHATE 4 MG/ML 1 ML VIAL IV ONE (06:53)
[2024-08-20] MEDS: ONDANSETRON 4 MG/2 ML VIAL IVP ONE (06:54)
[2024-08-20] MEDS ORDERED: HYDROmorphone 0.5 MG/0.5 ML SYRINGE IVP PRN (07:00)
[2024-08-20] MEDS ORDERED: MIDAZOLAM 2 MG/2 ML VIAL IV PRN (07:00)
--- NOTE | 2024-08-20 07:02 | XR ---
EXAMINATION TYPE: XR KUB DATE OF EXAM: 08/20/2024 6:11 AM CLINICAL INDICATION: Female, 39 years old with history of KIDNEY STONES, pain TECHNIQUE: 1 view of the abdomen. COMPARISON: CT abdomen and pelvis July 18, 2024. FINDINGS: Tiny bilateral renal calculi and CT less well seen on plain films. A new Double-J left ure ter stent is present. Small inferior right pelvic phleboliths redemonstrated. Overall nonobstructive bowel gas pattern. Osseous structures are intact. IMPRESSION: As above. [facility], , 08/20/2024 6:59 AM
[2024-08-20] MEDS ORDERED: KETOROLAC 15 MG/ML 1 ML VIAL ONE (07:23)
[2024-08-20] MEDS ORDERED: PROPOFOL 10 MG/ML 20 ML VIAL IV ONE (07:23)
[2024-08-20] MEDS ORDERED: fentaNYL (PF) 50 MCG/ML 2 ML AMP ONE (07:23)
[2024-08-20] MEDS ORDERED: MIDAZOLAM 2 MG/2 ML VIAL ONE (07:23)
[2024-08-20] MEDS ORDERED: LIDOCAINE 1% INJ 10MG/ML (20 ML MDV) ONE (07:23)
[2024-08-20 08:25] VITALS: TEMP 97
--- NOTE | 2024-08-20 08:28 | P.OP ---
Date of Procedure: 08/20/24 Preoperative Diagnosis: Left ureteral stone Postoperative Diagnosis: Left ureteral and renal stone, medullary sponge kidney Procedure(s) Performed: Cystoscopy, removal double-J catheter left, left ureteroscopy with laser lithotripsy, left renoscopy with laser lithotripsy Anesthesia: AMY Surgeon: Pipe Parish Estimated Blood Loss (ml): 0 Pathology: other (Stone) Condition: stable Disposition: PACU Indications for Procedure: Patient is 39. She has active kidney stone disease. A Month or so ago she had a left stent placed for an obstructing infected ureteral stone. She now comes for formal stone removal. Description of Procedure: Patient brought to the operative suite. Given a general anesthetic. Placed lithotomy position with a sterile prep and drape. Cystoscopy was performed with a 21 [place] sheath and Foroblique lens. The bladder shows ureteral stent edema. The left ureteral stent is identified and pulled to the urethral meatus. An 035 wire was passed through the stent into the kidney. The stent is removed and over the stent is passed an 1113 [place]ian reentry sheath. The inner sheath is removed. I passed the flexible ureteroscope into the proximal ureter and a stone is seen and pulled out with the stone basket. I then advanced the scope further and there is an obstructing stone at the UPJ that has to be broken with laser lithotripsy. I then passed the ureteroscope into the left collecting system and I go through each minor calyx. There are other several stones identified that are broken into tiny fragments. There are renal papillary stones. Papillotomy's are made and similar stone is broken. The end of the pro cedure look throughout the collecting system and there is no significant stone fragments that would cause obstruction. Pullout ureteroscopy does not identify any stones in the left ureter. The ureteral sheath is removed. The bladder is drained. The patient is awakened and returned to recovery room in good condition. The stone to be sent for pathology. The patient will be discharged home upon recovery.
[2024-08-20 09:25] VITALS: BP 141/84; PULSE 69; RESP 18
--- NOTE | 2024-08-20 10:02 | FL ---
EXAMINATION TYPE: FL guidance operating room DATE OF EXAM: 08/20/2024 CLINICAL HISTORY: Left kidney stone TECHNIQUE: Fluoroscopy. COMPARISON: Abdominal x-ray earlier today.. FINDINGS: Fluoroscopic guidance was provided during cystoscopy with kidney stone treatment procedure performed by Dr. Parish. A total of 4.4 seconds of fluoroscopic time was utilized during the procedu re and 1 spot image was acquired. Total dose area product (DAP) in uGy*m?, mGy*cm? (or similar: 0.66 94. IMPRESSION: As Above. [facility], , 08/20/2024 10:00 AM
== END 2024-08-20 09:39 | disposition home or self-care (01) ==
LOC: OR 05:57
PROVIDERS: ATTEND Urology
DX: N20.2 Calculus of kidney with calculus of ureter (principal); F17.210 Nicotine dependence, cigarettes, uncomplicated; Q61.5 Medullary cystic kidney; Z83.3 Family history of diabetes mellitus; Z80.1 Family history of malignant neoplasm of trachea, bronchus and lung; Z98.51 Tubal ligation status; Z90.49 Acquired absence of other specified parts of digestive tract; Z88.0 Allergy status to penicillin; Z79.899 Other long term (current) drug therapy
CPT/HCPCS: 81025; 82365; 74018; 52353; C1769; J2250; J1100; J2405; J2003; J3010; J1885; J2704

== ENCOUNTER → 2024-08-26 | Outpatient (CLI) | payer OTHER ==
--- NOTE | 2024-08-26 10:29 | XR ---
EXAMINATION TYPE: XR KUB DATE OF EXAM: 08/26/2024 10:04 AM COMPARISON: 08/20/2024. CLINICAL INDICATION: Female, 39 years old with history of N20.0 CALCULUS OF KIDNEY; [facility] TECHNIQUE: One radiographic view of the abdomen was obtained. FINDINGS: The bowel gas pattern is nonspecific without dilated loops of small or large bowel. . Fecal material and gas are demonstrated throughout the colon and rectum. There is no evidence for organome nacho or pneumoperitoneum. No acute osseous process. Overlapping bowel limits evaluation for renal st ones. No abnormal calcifications are present. Right upper quadrant cholecystectomy clips. Left ureter al stent was removed from 08/20/2024. Stable right pelvic calcifications from prior.. IMPRESSION: 1. Removal of left ureteral stent overlapping bowel limits evaluation for renal stones. 2. Nonspecific bowel gas pattern without radiographic evidence for acute process. [facility], , 08/26/2024 10:27 AM
== END | disposition home or self-care (01) ==
LOC: RADXRMAIN 09:49
PROVIDERS: ATTEND Urology
DX: N20.0 Calculus of kidney (principal)
CPT/HCPCS: 74018